=== PATIENT | female | born 1960 | race African-American/Black ===

== ENCOUNTER 2023-10-24 12:55 | Emergency (ER) | payer MEDICARE, OTHER, SELFPAY ==
[2023-10-24 13:04] VITALS: BP 126/66
--- NOTE | 2023-10-24 13:20 | ED.GENMED ---
History of Present Illness
General
Chief Complaint: Crisis Evaluation
Time Seen by Provider: 10/24/23 13:07
Travel History
Have you had any contact with someone who has COVID-19?: No
Do you have any symptoms of coronavirus? Fever > 100 degrees, chills, cough, shortness of breath, sore throat, loss of taste or smell, muscle aches, or headache?: No
History of Present Illness
History of Present Illness:
63-year-old female with history of hypertension, hyperlipidemia, mhu-avsgewb-[id number] diabetes, and morbid obesity presents to the emergency department for evaluation ideation. She has apparently been making threatening statements to 'kill her
roommates with knives'. 201 was initiated by her nursing facility staff. Patient is unable to be a direct threat to other residents or staff due to her immobility, she requires [employer] lift and occasionally will sit in a wheelchair for short periods
of time. She is unable to ambulate independently. Nevertheless she is requesting inpatient psychiatric placement due to these desires. Denies any suicidal ideation, visual or auditory hallucinations. Denies any medical complaints
Past History
Past History
ED Past Medical History: HTN, Hypercholesterolemia, NIDDM, Psychiatric (Schizoaffective disorder, Anxiety/Depression) and Other (Iron def anemia, GI bleeding.)
ED Past Surgical History: Cholecystectomy
Social History
Tobacco: Non-smoker
Alcohol: None
Personal: Single
Living: [facility]
Review of Systems
Review of Systems
Allergies reviewed?: Yes
All Other Systems: ROS reviewed and negative except as documented in HPI and ROS
Phy Exam
Physical Exam
Physical Exam:
GEN: Well appearing, NAD, WDWN
HEENT: Oral mucosa moist, no scleral icterus
Cardiac: Regular rate
Lung: No respiratory distress, no tachypnea
MSK: No gross deformity or injuries
Skin: Good color, no pallor or jaundice, no rashes
Neuro: AO x3, moves all extremities freely
Psych: Calm, cooperative
Course
Orders/Labs/Results
Orders:
Orders
10/24/23 13:17
Urine Drug Abuse Screen Urgent
Date Specimen was Collected: 10/24/23
Time Specimen was Collected: 13:23
10/24/23 13:20
Electrocardiogram (*1) Urgent
Reason for Study: QTc Monitoring
EKG- Treatment ONCE
10/24/23 13:22
Crisis Consult Urgent
Reason for Consult: homicidal ideation
10/24/23 14:46
Complete Blood Count/With Diff Urgent
Comprehensive Metabolic Panel Urgent
Abnormal Lab Results
10/24/23
14:46
RBC 4.14 L 10^6/uL
(4.20-5.40)
Hgb 10.8 L g/dL
(12.0-16.0)
Hct 34.1 L %
(37.0-47.0)
MCH 26.1 L pg
(27.0-31.0)
MCHC 31.7 L g/dL
(33.0-37.0)
RDW 16.1 H %
(11.5-14.5)
Glucose 106 H mg/dl
(70-99)
10/24/23 14:46
10/24/23 14:46
Vital Signs
Initial and Last Documented VS:
Initial Vital Signs
Temp Pulse Resp BP Pulse Ox
98.8 F 73 18 126/66 98
10/24/23 13:04 10/24/23 13:04 10/24/23 13:04 10/24/23 13:04 10/24/23 13:04
Last Documented Vital Signs
Temp Pulse Resp BP Pulse Ox
98.8 F 73 18 126/66 98
10/24/23 13:04 10/24/23 13:04 10/24/23 13:04 10/24/23 13:04 10/24/23 13:04
MDM/Problems Addressed
MDM/Problems Addressed:
Patient was evaluated by crisis, she readily admits that she does not have true homicidal or suicidal intentions but does not want to live at [facility] any longer. She feels that her best way to escape [facility] is to request psychiatric
admission. Ultimately she is not a direct threat to harm herself or others particular given that she is nonambulatory at baseline and requires [employer] lift for transfers. Her medical needs would be too great for inpatient psychiatric facilities to
manage, given that she is at a long term facility outpatient psychiatric follow-up is most appropriate for her. Be discharged back to [facility]
*Critical Care Note
Total Time (30-74mins, 75-104mins- exclusive of procedures): Not Applicable
ED Attending Note
-
Portions of this chart may have been created with voice recognition software.� Occasional wrong word or��sound alike� substitutions may have occurred due to the inherent limitations of voice recognition software.
Discharge Plan
Departure
Patient Disposition: Home (Routine Discharge)
Date of Disposition: 10/24/23
Time of Disposition: 16:41
Patient with high blood pressure during this ER visit?: No
Discharge Problem:
Threatening behavior
Prescriptions:
No Action
losartan 50 MG tablet
50 mg PO DAILY
magnesium hydroxide 30 ML suspension
30 ml PO DAILY PRN (Reason: constipation)
citalopram [Celexa] 20 MG tablet
20 mg PO DAILY
pantoprazole 40 MG tablet,delayed release (DR/EC)
40 mg PO DAILY Qty: 0 0RF
ferrous sulfate [Feosol] 325 MG tablet
325 mg PO BID
ipratropium-albuterol 0.5 mg-3 mg(2.5 mg base)/3 mL Solution For Nebulization
3 ml INHALATION R Q4 PRN (Reason: cough/SOB)
bisacodyl [Dulcolax (bisacodyl)] 10 mg Suppository
10 mg NM DAILY PRN (Reason: constipation if MOM ineffective)
Fleet Enema 19-7 gram/118 mL Enema
118 ml NM DAILY PRN (Reason: if dulcolax supp ineffective)
loperamide 2 mg Tablet
2 mg PO Q6H PRN (Reason: diarrhea)
risperidone [Risperdal] 3 mg Tablet
3 mg PO Q12H
acetaminophen 325 MG tablet
650 mg PO Q6H PRN (Reason: mild pain/temp> 100F)
cyanocobalamin (vitamin B-12) [Vitamin B-12] 500 mcg Tablet
500 mcg PO DAILY
Referrals:
Donn Bowman DO [Family Provider] -
Interventions
Interventions:
*Risk Screen - Suicide Last Done: 10/24/23 13:04
*General Assessment Last Done: 10/24/23 13:04
*Neglect/Abuse Screening Last Done: 10/24/23 13:04
ED- Fall Risk Assessment Last Done: 10/24/23 13:04
*ED COVID-19 Vaccine History Last Done: 10/24/23 13:04
ED-Psychological Assessment Last Done: 10/24/23 13:04
Discharge Date and Time
Print Language: KHMER
[2023-10-24 14:55] LABS: % Basophils 0.6 % (0-2); % Eosinophils 3.5 % (0-6); % Immature Granulocytes 0.3 % (0-0.5); % Lymphocytes 28.2 % (20.5-51.1); % Monocytes 5.7 % (1.7-9.3); % Neutrophils 61.7 % (42.2-75.2); Absolute Eosinophils 0.2 10^3/uL (0-0.7); Absolute Lymphocytes 1.9 10^3/uL (1.2-3.4); Absolute Monocytes 0.4 10^3/uL (0.1-0.6); Absolute Neutrophils 4.1 10^3/uL (1.4-6.5); Hematocrit 34.1 % (37.0-47.0); Hemoglobin 10.8 g/dL (12.0-16.0); Mean Corp Hgb Conc. 31.7 g/dL (33.0-37.0); Mean Corpuscular Hgb 26.1 pg (27.0-31.0); Mean Corpuscular Volume 82.4 fL (81.0-99.0); Nucleated Red Blood Cells % 0 %; Platelet Count 300 10^3/uL (130-400); Red Blood Cell Count 4.14 10^6/uL (4.20-5.40); Red Cell Dist. Width 16.1 % (11.5-14.5); White Blood Cell Count 6.7 10^3/uL (4.8-10.8)
[2023-10-24 15:24] LABS: ALT (SGPT) 12 U/L (0-35); AST (SGOT) 15 U/L (14-36); Albumin 3.6 g/dl (3.5-5.0); Alkaline Phosphatase 93 U/L (38-126); Blood Urea Nitrogen 12 mg/dl (7-17); Calcium 9.1 mg/dl (8.4-10.2); Carbon Dioxide 28 mmol/L (22-30); Chloride 102 mmol/L (98-107); Glucose 106 mg/dl (70-99); Potassium 3.8 mmol/L (3.5-5.1); Sodium 135 mmol/L (135-145); Total Bilirubin 0.8 mg/dl (0.2-1.3); Total Protein 7.5 g/dl (6.3-8.2); eGFR > 60.00
[2023-10-24 21:13] VITALS: BP 145/81
== END 2023-10-24 21:28 | disposition home or self-care (01) ==
LOC: EMR 12:55
PROVIDERS: Physician Assistant; EMERGENCY PHYSICIAN Emergency Medicine; FAMILY PHYSICIAN Internal Medicine
DX: R45.6 Violent behavior (principal)
CPT/HCPCS: 99284; 80053; 85025; 93005

== ENCOUNTER 2024-11-21 12:07 | Inpatient (IN) | payer MEDICARE, OTHER, SELFPAY ==
[2024-11-19 22:43] VITALS: BMI 50.3
[2024-11-19 22:53] VITALS: BP 99/55
[2024-11-19 23:28] LABS: % Basophils 0.5 % (0-2); % Eosinophils 2.7 % (0-6); % Immature Granulocytes 1.3 % (0-0.5); % Lymphocytes 8.5 % (20.5-51.1); % Monocytes 4.8 % (1.7-9.3); % Neutrophils 82.2 % (42.2-75.2); Absolute Basophils 0.1 10^3/uL (0-0.2); Absolute Eosinophils 0.3 10^3/uL (0-0.7); Absolute Immature Granulocytes 0.2 10^3/uL (0-0.05); Absolute Monocytes 0.6 10^3/uL (0.1-0.6); Absolute Neutrophils 9.6 10^3/uL (1.4-6.5); Hematocrit 31.3 % (37.0-47.0); Hemoglobin 10.4 g/dL (12.0-16.0); Mean Corp Hgb Conc. 33.2 g/dL (33.0-37.0); Mean Corpuscular Hgb 26.8 pg (27.0-31.0); Mean Corpuscular Volume 80.7 fL (81.0-99.0); Nucleated Red Blood Cells % 0 %; Platelet Count 312 10^3/uL (130-400); Red Blood Cell Count 3.88 10^6/uL (4.20-5.40); Red Cell Dist. Width 19.1 % (11.5-14.5); White Blood Cell Count 11.7 10^3/uL (4.8-10.8)
[2024-11-19 23:43] LABS: ALT (SGPT) 72 U/L (0-35); AST (SGOT) 179 U/L (14-36); Albumin 2.7 g/dl (3.5-5.0); Blood Urea Nitrogen 17 mg/dl (7-17); Calcium 8.6 mg/dl (8.4-10.2); Carbon Dioxide 27 mmol/L (22-30); Chloride 94 mmol/L (98-107); Glucose 94 mg/dl (70-99); Lipase 41 U/L (23-300); Potassium 3.1 mmol/L (3.5-5.1); Sodium 130 mmol/L (135-145); Total Bilirubin 6.4 mg/dl (0.2-1.3); Total Protein 6.5 g/dl (6.3-8.2); eGFR > 60.00
[2024-11-19 23:54] LABS: Alkaline Phosphatase 1994 U/L (38-126)
--- NOTE | 2024-11-19 23:57 | ED.GENMED ---
History of Present Illness
General
Chief Complaint: Vaginal Bleeding
Source: patient
Exam Limitations: none
Time Seen by Provider: 11/19/24 23:55
Nursing documentation reviewed up to this point in time: agreed with
History of Present Illness
History of Present Illness:
This is a 64-year-old female with past medical history of hypertension, hyperlipidemia, diabetes schizophrenia, who presents to the emergency department today with concerns of nausea and vomiting for the past few weeks as well as vaginal bleeding
for the past days. Patient reports that [facility] and reports that she has had nausea and vomiting on and off. She did state that she had 2 episodes that she vomited up specks of blood. This did resolve. She denies any dark
tarry stools. She states that she also has diffuse abdominal pain constantly she is not able to identify any factors that make it worse. Today, staff was changing her noticed that she did have vaginal bleeding. Patient is never had before. She
has no pain in the vaginal area, she has no dysuria or urinary frequency. Patient denies any fevers or chills. Patient does have a past medical history of cholecystectomy. She denies any new medications. She also states that she has been feeling
fluttering in her chest that has also resolved.
Past History
Past History
ED Past Medical History: HTN, Hypercholesterolemia, NIDDM, Psychiatric (Schizoaffective disorder, Anxiety/Depression) and Other (Iron def anemia, GI bleeding.)
ED Past Surgical History: Cholecystectomy
Social History
Tobacco: Non-smoker
Alcohol: None
Personal: Single
Living: prison
Review of Systems
Review of Systems
All Other Systems: ROS reviewed and negative except as documented in HPI and ROS
Phy Exam
Physical Exam
Physical Exam:
General: Patient is well appearing and in no acute distress; non-toxic
Skin: Jaundice otherwise skin is warm and dry, no rashes
Head: Normocephalic, atraumatic
Eyes: Scleral icterus noted. EOMs intact
Cardiac: Regular rate and rhythm, no murmurs
Peripheral Vascular: No lower extremity swelling or
Pulm: Normal respiratory effort, no wheezes, rales,
Abdomen: Epigastric abdominal tenderness noted, no rebound tenderness, no guarding
Genitourinary: Blood noted at vaginal introitus, no rectal bleeding, no lesions of the external genitalia
Neuro: CN II-XII intact, no focal neurologic deficits.
Psychiatric: Appropriate mood and affect.
Course
Orders/Labs/Results
Orders:
Orders
11/19/24 22:52
EKG [Electrocardiogram (*1)] Urgent
Reason for Study: Abdominal Pain
EKG- Treatment ONCE
11/19/24 23:17
Acetaminophen Urgent
Complete Blood Count/With Diff Urgent
Comprehensive Metabolic Panel Urgent
Direct Bilirubin Urgent
Comment: ADD ON
Lipase Urgent
Salicylate Urgent
Comment: ADD ON
11/20/24 00:21
CT Abd/pelvis W Iv Cont Urgent
Comment:
Reason For Exam: diffuse abdominal pain
11/20/24 00:22
Lactated Ringers [Lr] 1,000 ml IV BOLUS
11/20/24 00:23
US Pelvis Only (non-obstetric) Urgent
Comment:
Reason For Exam: vaginal bleeding
11/20/24 00:24
Pantoprazole [Protonix IV] 80 mg IV NOW STA
11/20/24 02:24
Potassium Chloride 10% Elixir [KCl Elixir] 40 meq PO NOW STA
11/20/24 03:07
Add On- LAB Urgent
Tests Added?: direct bilirubin
11/20/24 03:08
Add On- LAB Urgent
Tests Added?: tylenol, salicylates
11/20/24 03:40
Prothrombin Time Urgent
11/20/24 03:56
Add On- LAB Stat
Tests Added?: ethanol level
Admit/Transfer Patient As Directed
Co-Sign Provider:
Level of Care: Observation services
Assign to:: Medical/Surgical
Physician / Group: hospitalist
Diagnosis: jaundice
Urinalysis Reflex To Culture Routine
PRN Pain Medication Management As Directed
May give lesser potent ordered pain med per pt: Yes
preference::
Protocol:: Medication orders for pain may be administered in a
manner that supports deferring to patient preference
when the pt is:
- Requesting an ordered lesser potent pain medication.
Least to most potent pain medications are defined
as: acetaminophen < NSAID < tramadol < opioids
(morphine, oxycodone, hydromorphone).
- Requesting a lesser dose of the same medication IF
ORDERED.
- Requesting a less intrusive route of administration
if both routes are prescribed by the provider (PO <
IV).
11/20/24 03:58
Code Status As Directed
Resuscitation Status: Full Code
Abnormal Lab Results
11/19/24 11/20/24
23:17 03:40
WBC 11.7 H 10^3/uL
(4.8-10.8)
RBC 3.88 L 10^6/uL
(4.20-5.40)
Hgb 10.4 L g/dL
(12.0-16.0)
Hct 31.3 L %
(37.0-47.0)
MCV 80.7 L fL
(81.0-99.0)
MCH 26.8 L pg
(27.0-31.0)
RDW 19.1 H %
(11.5-14.5)
Abs Immat Gran (auto) 0.2 H 10^3/uL
(0-0.05)
Absolute Neuts (auto) 9.6 H 10^3/uL
(1.4-6.5)
Absolute Lymphs (auto) 1.0 L 10^3/uL
(1.2-3.4)
Immature Gran % 1.3 H %
(0-0.5)
Neutrophils % 82.2 H %
(42.2-75.2)
Lymphocytes % 8.5 L %
(20.5-51.1)
PT 16.8 H Sec
(11.4-14.6)
Sodium 130 L mmol/L
(135-145)
Potassium 3.1 L mmol/L
(3.5-5.1)
Chloride 94 L mmol/L
(98-107)
Total Bilirubin 6.4 H mg/dl
(0.2-1.3)
Direct Bilirubin 4.8 H mg/dl
(0.0-0.4)
AST 179 H U/L
(14-36)
ALT 72 H U/L
(0-35)
Alkaline Phosphatase 1994 H U/L
(38-126)
Albumin 2.7 L g/dl
(3.5-5.0)
Salicylates < 1.0 L mg/dl
(2.0-20.0)
Acetaminophen < 10 L ug/ml
(10-30)
11/19/24 23:17
11/19/24 23:17
Vital Signs
Initial and Last Documented VS:
Initial Vital Signs
Temp Pulse Resp BP Pulse Ox
98.2 F 92 22 99/55 96
11/19/24 22:53 11/19/24 22:53 11/19/24 22:53 11/19/24 22:53 11/19/24 22:53
Last Documented Vital Signs
Temp Pulse Resp BP Pulse Ox
98.2 F 92 22 99/55 96
11/19/24 22:53 11/19/24 22:53 11/19/24 22:53 11/19/24 22:53 11/19/24 22:53
MDM/Problems Addressed
Differential Diagnosis Includes:
Acute cholangitis, pancreatitis, gastritis, cirrhosis, uterine malignancy
MDM/Problems Addressed:
This is a 64-year-old female with past medical history of hypertension, hyperlipidemia, diabetes schizophrenia, who presents to the emergency department today with concerns of nausea and vomiting for the past few weeks as well as vaginal bleeding
today. Her primary issue today is diffuse abdominal pain and nausea and vomiting with associated jaundice, and her blood work reveals a total bilirubin is elevated at 6.[address] scan shows mild, bile duct dilation but no
evidence of obstructing stone. Her lipase is normal. Patient will need further workup of these new findings and MRCP.
Patient also has vaginal bleeding which started today with no associated dysuria or pelvic pain, her ultrasound is workable. Patient will require outpatient evaluation with PSYCHIATRIC ORDERLY.
Chronic conditions affecting care:
Hypertension, hyperlipidemia, schizophrenia
*Pulse Oximetry
Patient hypoxic: no
*Critical Care Note
Total Time (30-74mins, 75-104mins- exclusive of procedures): Not Applicable
Data Reviewed
Review of Other/Old Records Reveals: Records (Reviewed ER physician documentation from 10/24/2023 patient seen for threatening behavior, had blood work done which was unremarkable, reviewed ER physician documentation from 02/10 symptoms 23 patient seen
for chest pain, reviewed discharge summary from 08/09/2022 patient seen for acute bronchitis ) and Discharge Summary (Reviewed discharge summary from 03/25/2018 patient seen for hematemesis was diagnosed with esophageal ulcer)
Source: patient and records
ED Attending Note
-
Portions of this chart may have been created with voice recognition software.� Occasional wrong word or��sound alike� substitutions may have occurred due to the inherent limitations of voice recognition software.
Discharge Plan
Departure
Patient Disposition: Admit
Date of Disposition: 11/20/24
Time of Disposition: 03:20
Presentation/result/management discussed w/ accepting MD/DO: Hospitalist
Patient with high blood pressure during this ER visit?: Yes
Condition: Good
Discharge Problem:
Jaundice, Vaginal bleeding
Interventions
Interventions:
*General Assessment Last Done: 11/19/24 22:53
*Neglect/Abuse Screening Last Done: 11/19/24 22:53
*ED- Fall Risk Assessment Last Done: 11/19/24 22:53
*ED COVID-19 Vaccine History Last Done: 11/19/24 22:53
ED-Female Genitourinary Assessment Last Done: 11/19/24 23:03
[2024-11-20] VITALS (12 sets, daily range): BP systolic 91–127; BP diastolic 47–99; BMI 49.9
[2024-11-20] MEDS: LR 1000 IV (01:38)
[2024-11-20] MEDS: PROTONIX IV 80 MG IV (01:38)
[2024-11-20] MEDS: KCL ELIXIR 40 MEQ PO (02:52)
--- NOTE | 2024-11-20 03:28 | HPS.HSE ---
Family Physician
-
Family Physician: Donn Bowman, DO
Chief Complaint
-
Vaginal bleeding
History of Present Illness
This is a 63-year-old female with past medical history significant for schizophrenia, hypertension, diabetes, hyperlipidemia, morbid obesity, history of prior GI bleed who [facility] at [facility] presenting to the emergency department for 2 days of
vaginal bleeding.
Patient stated that she started having vaginal bleeding about 2 days ago. Nausea showed me that she had cysts about 3 cm area of sports on a pad. When evaluated in the ED she did have some blood around the lower pubic mons. She denies history of
vaginal bleeding. She reports that she has been having itching and burning when she urinates over the last 2 days. She otherwise endorses numerous other complaints. She states that she has had nausea vomiting and abdominal pain for over 6 weeks.
She reports abdominal pain is diffuse and radiates into her chest. She reported that she had a bloody emesis today. She says she has been having bloody emesis for several weeks as well. She also reports bloody diarrhea. She reports feeling dizzy
and lightheaded. She states that she has been able to tolerate p.o. she has a prior history of alcohol use, quit many years ago.
In the emergency department she was afebrile, temp was 98.2, blood pressure was 99/60 with a pulse of 92. Hemoglobin was 10.4 with white count from 1791 plate count. Coags are pending. Electrolytes are notable for sodium of 130 and a potassium of
3.1 but otherwise unremarkable. BUN and creatinine were normal. Labs notable for a total bilirubin of 6.4, AST of 179 ALT of 72 alk phos of over 1900. Lipase was negative.
She had a CT of the abdomen pelvis with no definitive CT findings to account for reported pain/symptoms. Interval cholecystectomy, mild CBD dilation likely reflecting post cholecystomy changes. No definite evidence of obstructing stone.
Stable appearance of the pelvis with exophytic fibroid versus prominent left ovary. No evidence of hydroureteronephrosis or obstructing stone.
Medical History
Past Medical History
Past Medical History: Reports Other
Additional Past Medical History:
Morbid Obesity
Schizophrenia
Iron Deficiency Anemia
Hypertension
Chronic Ambulatory Dysfunction
Impaired Cognition / Intellectual Disability
Past Surgical History: Reports Cholecystectomy
Social History
Tobacco: Non-smoker
Alcohol: Former
Drug: None
Living: [facility]
Family History
Family History: Not pertinent
Allergies / Home Medications
Allergies reflects when Allergies were last updated in [email or web address].
Home Medications with original date entered in [email or web address]
Allergy/Medication List:
Allergies
Allergy/AdvReac Type Severity Reaction Status Date / Time
chlorpromazine Allergy Unknown Verified 11/19/24 22:50
[From Thorazine]
haloperidol [From Haldol] Allergy Unknown Verified 11/19/24 22:50
tobramycin [From Tobrex] Allergy Unknown Verified 11/19/24 22:50
Home Medications
losartan 50 mg tablet 50 mg PO DAILY Blood pressure 07/27/17
magnesium hydroxide 400 mg/5 mL oral suspension 30 ml PO DAILY PRN constipation 07/27/17
citalopram 20 mg tablet (Celexa) 40 mg PO DAILY 03/23/18
pantoprazole 40 mg tablet,delayed release 40 mg PO DAILY ##0 03/25/18
ferrous sulfate 325 mg (65 mg iron) tablet (Feosol) 325 mg PO BID Supplement 05/03/18
bisacodyl 10 mg rectal suppository (Dulcolax (bisacodyl)) 10 mg NH DAILY PRN constipation if MOM ineffective 08/07/22
ipratropium 0.5 mg-albuterol 3 mg (2.5 mg base)/3 mL nebulization soln 3 ml inhalation R Q4 PRN cough/SOB 08/07/22
sodium phosphates 19 gram-7 gram/118 mL enema (Fleet Enema) 118 ml NH DAILY PRN if dulcolax supp ineffective 08/07/22
acetaminophen 325 mg tablet 650 mg PO Q6H PRN mild pain/temp> 100F 02/17/23
loperamide 2 mg tablet 2 mg PO Q6H PRN diarrhea 02/17/23
risperidone 3 mg tablet (Risperdal) 2 mg PO Q12H 02/17/23
melatonin 3 mg tablet 6 mg PO HS 11/20/24
semaglutide 1 mg/dose (4 mg/3 mL) subcutaneous pen injector (Ozempic) 2 mg SC .EVERYFRIDAY 11/20/24
Review of Systems
-
History Source: Patient
Constitutional: Reports No Symptoms
EENT: Reports No Symptoms
Respiratory: Reports No Symptoms
Cardiac: Reports No Symptoms
Abdomen/GI: Reports Abdominal Pain, Nausea, Vomiting and Diarrhea
: Reports Dysuria
Musculoskeletal: Reports No Symptoms
Skin: Reports No Symptoms
Neurological: Reports No Symptoms
Endocrine: Reports No Symptoms
Hematologic/Lymphatic: Reports No Symptoms
Psych: Reports No Symptoms
Physical Exam
Vital Signs
Vital Signs
Temp Pulse Resp BP Pulse Ox
98.2 F 92 22 99/55 96
11/19/24 22:53 11/19/24 22:53 11/19/24 22:53 11/19/24 22:53 11/19/24 22:53
Physical Exam
General: No Apparent Distress and Morbidly Obese
HEENT: NormoCephalic, Anicteric, Moist mucous membranes and Atraumatic
Respiratory: Clear
Cardiac: S1/S2 and Regular Rhythm
Breast: Deferred by me
GI: Tender
Rectal: Deferred by Provider
Genito-urinary: No costovertebral tender and Vaginal Bleeding
Musculoskeletal: No Clubbing, No Cyanosis and No Edema
Skin: Warm
Neuro: AO x 3 and Nonfocal/grossly intact
Hematologic/Lymphatic: No Lymphadenopathy
Psych: Calm
Laboratory Results
-
11/19/24 23:17
11/19/24 23:17
Laboratory Results
Total Bilirubin 6.4 mg/dl (0.2-1.3) H 11/19/24 23:17
AST 179 U/L (14-36) H 11/19/24 23:17
ALT 72 U/L (0-35) H 11/19/24 23:17
Alkaline Phosphatase 1994 U/L (38-126) H 11/19/24 23:17
Lipase 41 U/L (23-300) 11/19/24 23:17
Data Reviewed
-
CT Scan: Report Reviewed by me
Lab Data: Labs Reviewed by me
Old Records: Reviewed
Impression/Plan
-
IMPRESSION:
64-year-old transferred to the emergency department for vaginal bleeding ongoing for 2 days and found to have spots of blood on the pad. She reports several weeks of abdominal pain nausea vomiting and found to have markedly elevated bilirubin to
6.4 with elevated alk phos to over 1900. She has slight elevations in AST to 179 and ALT 72. Lipase was negative. CT of the abdomen was unrevealing for any acute intra-abdominal pathology specifically she has no gallbladder, no gallstones, no
biliary ductal dilation.
PLAN:
Abnormal liver enzymes/cholestasis - 6 weeks of N/V now with elevated bilis. (Completely normal 1 yr ago). No stones, masses or obvious obstruction. Denies etoh use. Denies tylenol use. No obvious hepatoxic drugs. No h/o IBD. No cirrhosis on
labs
- admit to med/surg
- clear liquid diet as tolerated
- check tylenol and chronic hep panel
- given elevated alkphos, likely cholestatic picture, check direct bili and ggtp
- possible MRCP in am (don't think she can be accomodated by regular mri)
- GI consultation
Vaginal bleeding - vaginal bleeding vs cystitis. Likely difficult to get clean u/a sample. Reports itching. Minimal bleeding currently. Fibroid on CT scan. No thinners, nsaids or antiplatelet. Low MCV, likely iron deficiency but Hgb is stable
compared to prior
- u/a
- coags given liver enzymes
- type and screen
- iron panel
- iron supplementation
- vegetable washing machine operator consult.
Hypokalemia - no acute ECG changes.
- replete by IV and oral
DVT PPX - heparin sq
Code status - Full Code
[2024-11-20 03:41] LABS: Acetaminophen < 10 ug/ml (10-30); Direct Bilirubin 4.8 mg/dl (0.0-0.4); Salicylate < 1.0 mg/dl (2.0-20.0)
[2024-11-20 04:08] LABS: INR 1.33; PT 16.8 Sec (11.4-14.6)
[2024-11-20 05:46] LABS: Alcohol None Detected
[2024-11-20] MEDS: NSS 1000 IV (06:12)
[2024-11-20 06:33] LABS: Hemoglobin 10.9 g/dL (12.0-16.0); Mean Corp Hgb Conc. 34.1 g/dL (33.0-37.0); Mean Corpuscular Volume 79.2 fL (81.0-99.0); Mean Platelet Volume 9.4 fL (7.4-10.4); Platelet Count 352 10^3/uL (130-400); Red Blood Cell Count 4.04 10^6/uL (4.20-5.40); Red Cell Dist. Width 19.2 % (11.5-14.5); White Blood Cell Count 11.4 10^3/uL (4.8-10.8)
[2024-11-20] MEDS: RISPERDAL 2 MG PO ×2 (07:23→21:56)
[2024-11-20] MEDS: FEOSOL 325 MG PO ×2 (07:23→21:56)
[2024-11-20] MEDS: PROTONIX 40 MG PO (07:23)
[2024-11-20 07:27] LABS: Hepatitis B Surface Antigen Negative (Negative)
[2024-11-20] MEDS: COZAAR PO (07:27)
[2024-11-20] MEDS: HEPARIN 5000 UNITS SC ×3 (07:27→23:34)
[2024-11-20 07:30] LABS: Hepatitis B Core Ab, IgM Negative (Negative)
[2024-11-20] MEDS: CELEXA 40 MG PO (07:31)
--- NOTE | 2024-11-20 07:32 | CON.GI ---
Addendum entered and electronically signed by Marcelo Piña MD 11/20/24 19:19:
I saw and examined the patient.
The SMALL MACHINE BINDERY OPERATOR or PA's note was reviewed and I agree with the note.
Comment:
Pt is a 64 y/o woman with intellectual disability, gerd admitted with vaginal bleeding and found to have markedly abnormal lfts. 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 She has had an egd but not colonoscopy. Does have nausea
and intermittent vomiting
abd: soft,nontender,
mildly icteric
impression:
liver lesions
nausea/vomiting
abnl lfts
gerd
plan:
PPI
follow lfts, add GGT
check tumor markers
stool studies if diarrhea
po as tolerated
will await rn obgyn w/u
Original Note:
Consultation
-
Date/Time Consultation Requested: 11/20/24 0530
Date/Time Consultation Performed: 11/20/24 1010
Requesting Provider: Dawit Thomas MD
Performing Provider: DON Ansari, Marcelo Piña MD
Reason for Consultation: increased LFT's
Medical History
Chief Complaint / HPI
Chief Complaint: vomiting, vaginal bleeding
History of Present Illness:
Pt is a 64yo presents with hx HTN, hyperlipidemia, schizophrenia, NIDDM (on Ozempic) obesity, GI bleed- CGE with EGD 2018 with grade D esophagitis, ENRIQUE, chronic ambulatory dysfunction, impaired cognition/ intellectual disability , mariely presents
with onset of vaginal bleeding. In ER she also had complaints of nausea, vomiting, abdominal pain, recent bloody emesis, blood diarrhea and urinary bleeding. On admission pt also noted with WBC 11.7, hbg 10.4, Na 130, K 3.1, cl 94, ferritin 615,
bili 6.4, D bili 4.8, AST 179, ALT 72, alk phos 1993 (with normal LFT's 10/2023) albumin 2.7, and lipase 41. INR 1.33. ER rectal with blood in vaginal area no rectal bleeding. She has completed several imaging studies with Us pelvis with
endometrial thickening concern for hyperplasia or carcinoma. She also completed CT and MRI with liver lesions - MRI suggest Hamartomas vs less likely mets, microabscess or caroli disease. recommended repeat in 3-6 months. There was also intra and
extrahepatic duct dilatation likely post mariely, no stricture or filling defect. Also noted on Ct with mild upper retroperitoneal adenopathy reactive vs mets.+ family hx mother with colon CA.
In review with patient she states she has not been feeling well for a few weeks. She admits to multiple issues as above. She also admits to GERD on chronic PPI, and constipation with straining for BM's at times and lower abdominal pain.
She is unsure about wt loss. She admits to possible colonoscopy years ago at [facility]. 02/2018- Melissa-- LA Grade D reflux esophagitis.- Chronic gastritis. Biopsied - Normal third portion of the duodenum. bx-- inactive gastritis, H pylori neg
Past Medical History
Past Medical History: HTN, Hypercholesterolemia, NIDDM, Psychiatric (schizophrenia) and Other (obesity, GI bleed, ENRIQUE, chronic ambulatory dysfunction, impaired cognition/ intellectual disability )
Past Surgical History: Cholecystectomy
Social History
Tobacco: Non-Smoker
Alcohol: None
Drug: None
Living: Prison
Employment: Disabled
Family History
Family History: Other (mother with colon CA, father with ID)
Allergies / Home Medications
Allergy/AdvReac Type Severity Reaction Status Date / Time
chlorpromazine Allergy Unknown Verified 11/19/24 22:50
[From Thorazine]
haloperidol [From Haldol] Allergy Unknown Verified 11/19/24 22:50
tobramycin [From Tobrex] Allergy Unknown Verified 11/19/24 22:50
�Medication �Instructions �Recorded
losartan 50 mg tablet 50 mg PO DAILY Blood pressure 07/27/17
magnesium hydroxide 400 mg/5 mL 30 ml PO DAILY PRN constipation 07/27/17
oral suspension
citalopram 20 mg tablet (Celexa) 40 mg PO DAILY 03/23/18
pantoprazole 40 mg tablet,delayed 40 mg PO DAILY ##0 03/25/18
release
ferrous sulfate 325 mg (65 mg 325 mg PO BID Supplement 05/03/18
iron) tablet (Feosol)
bisacodyl 10 mg rectal suppository 10 mg [place] DAILY PRN constipation if 08/07/22
(Dulcolax (bisacodyl)) MOM ineffective
ipratropium 0.5 mg-albuterol 3 mg 3 ml inhalation R Q4 PRN cough/SOB 08/07/22
(2.5 mg base)/3 mL nebulization
soln
sodium phosphates 19 gram-7 118 ml W[place] DAILY PRN if dulcolax 08/07/22
gram/118 mL enema (Fleet Enema) supp ineffective
acetaminophen 325 mg tablet 650 mg PO Q6H PRN mild pain/temp> 02/17/23
100F
loperamide 2 mg tablet 2 mg PO Q6H PRN diarrhea 02/17/23
risperidone 3 mg tablet (Risperdal) 2 mg PO Q12H 02/17/23
melatonin 3 mg tablet 6 mg PO HS 11/20/24
semaglutide 1 mg/dose (4 mg/3 mL) 2 mg SC .EVERYFRIDAY 11/20/24
subcutaneous pen injector (Ozempic)
Review of Systems
-
History Source: Patient
Constitutional: Reports Chills
EENT: Reports No Symptoms
Respiratory: Reports No Symptoms
Cardiac: Reports No Symptoms
Abdomen/GI: Reports Abdominal Pain (lower abdomen ), Nausea, Vomiting (with hematemesis ), Constipated and Bloody Stools
: Reports Bleeding and Other (vaginal bleeding )
Musculoskeletal: Reports No Symptoms
Skin: Reports No Symptoms
Neurological: Reports Weakness
Endocrine: Reports No Symptoms
Hematologic/Lymphatic: Reports Bleeding
Vital Signs
Temp Pulse Resp BP Pulse Ox
97.7 F 98 18 92/62 96
11/20/24 07:07 11/20/24 07:27 11/20/24 07:07 11/20/24 07:27 11/20/24 07:07
Physical Exam
Exam
General: Well Developed, Well Nourished and No Apparent Distress
HEENT: Normocephalic and Anicteric
Results
WBC 11.4 10^3/uL (4.8-10.8) H 11/20/24 06:09
Hgb 10.9 g/dL (12.0-16.0) L 11/20/24 06:09
Hct 32.0 % (37.0-47.0) L 11/20/24 06:09
MCV 79.2 fL (81.0-99.0) L 11/20/24 06:09
Plt Count 352 10^3/uL (130-400) 11/20/24 06:09
Absolute Neuts (auto) 9.6 10^3/uL (1.4-6.5) H 11/19/24 23:17
PT 16.8 Sec (11.4-14.6) H 11/20/24 03:40
INR 1.33 11/20/24 03:40
Sodium Cancelled 11/20/24 06:09
Potassium Cancelled 11/20/24 06:09
Chloride Cancelled 11/20/24 06:09
Carbon Dioxide Cancelled 11/20/24 06:09
BUN Cancelled 11/20/24 06:09
Creatinine Cancelled 11/20/24 06:09
Calcium Cancelled 11/20/24 06:09
Total Bilirubin Cancelled 11/20/24 06:09
AST Cancelled 11/20/24 06:09
ALT Cancelled 11/20/24 06:09
Alkaline Phosphatase Cancelled 11/20/24 06:09
Lipase 41 U/L (23-300) 11/19/24 23:17
Hep B Core IgM Ab Negative (Negative) 11/20/24 06:09
Diagnostic Image Results:
11/20/24 CT Abd/pelvis W Iv Cont
Heterogeneous liver parenchyma with the suggestion of numerous small intraparenchymal liver lesions. Hepatic metastases versus other underlying infiltrative process. This appears to be new compared to the CT abdomen/pelvis from 01/12/2019. The
patient is currently scheduled for an MRI of the abdomen, at which time further evaluation of the liver is recommended.
Bile duct dilatation may be secondary to the previous cholecystectomy. No appreciable choledocholithiasis by CT.
Mild upper retroperitoneal lymphadenopathy, reactive versus metastatic.
Heterogeneous liver parenchyma with the suggestion of numerous small intraparenchymal liver lesions. Hepatic metastases versus other underlying infiltrative process. This appears to be new compared to the CT abdomen/pelvis from 01/12/2019. The
patient is currently scheduled for an MRI of the abdomen, at which time further evaluation of the liver is recommended.
Bile duct dilatation may be secondary to the previous cholecystectomy. No appreciable choledocholithiasis by CT.
Mild upper retroperitoneal lymphadenopathy, reactive versus metastatic.
11/20/24 US Pelvis Only (non-obstetric)
The endometrium measures 9 mm in thickness, which is considered abnormally thickened for a symptomatic postmenopausal patient (greater than 5 mm). Findings could be secondary to endometrial hyperplasia or endometrial carcinoma. Sonographic
evaluation is limited by patient body habitus.
MRI with and without contrast
Innumerable scattered small nonenhancing hepatic lesions as described. 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 Less likely differentials include atypical liver metastases, microabscesses, or Caroli
disease. As a conservative measure, recommend follow-up MRI abdomen without and with Eovist contrast in 3-6 months.
Diffuse prominence of the intra- and extra-hepatic biliary ducts, likely within normal limits given patient age and postcholecystectomy state. No discrete biliary strictures or filling defects.
Prior GI Procedures:
EGD: 02/2018- Torres-- LA Grade D reflux esophagitis.- Chronic gastritis. Biopsied - Normal third portion of the duodenum. bx-- inactive gastritis, H pylori neg
Colonoscopy:
Assessment / Plan
-
Pt is a 64yo presents with hx HTN, hyperlipidemia, schizophrenia, NIDDM (on Ozempic) obesity, GI bleed- CGE with EGD 2018 with grade D esophagitis, ENRIQUE, chronic ambulatory dysfunction, impaired cognition/ intellectual disability , mariely presents
with onset of vaginal bleeding. In ER she also had complaints of nausea, vomiting, abdominal pain, recent bloody emesis, blood diarrhea and urinary bleeding. On admission pt also noted with WBC 11.7, hbg 10.4, Na 130, K 3.1, cl 94, ferritin 615,
bili 6.4, D bili 4.8, AST 179, ALT 72, alk phos 1994 (with normal LFT's 10/2023) albumin 2.7, and lipase 41. INR 1.33. ER rectal with blood in vaginal area no rectal bleeding. She has completed several imaging studies with Us pelvis with
endometrial thickening concern for hyperplasia or carcinoma. She also completed CT and MRI with liver lesions - MRI suggest Hamartomas vs less likely mets, microabscess or caroli disease. recommended repeat in 3-6 months. There was also intra and
extrahepatic duct dilatation likely post mariely, no stricture or filling defect. Also noted on Ct with mild upper retroperitoneal adenopathy reactive vs mets.+ family hx mother with colon CA.
-increased LFT's
-nausea/vomiting/abdominal pain
-CT and MRI with liver lesion Hamartoma vs other
-intra and extrahepatic biliary dilation post mariely vs other
-bloody emesis
-blood diarrhea
-constipation
-vaginal bleeding- US with endometrial thickening
-mild upper abdominal retroperioneal adenopathy
-mild anemia
-leukocytosis
-hyponatremia
-hypokalemia
other medical problems:
-HTN
-hyperlipidemia
-schizophrenia
-NIDDM
-obesity
PLAN:
Etiology of increased LFT's unclear will review imaging with Dr. Piña with liver lesions and possible occult process
she also has nausea, vomiting, hematemesis -- nursing to follow for recurrent issues
she is also on Ozempic prior to admission unsure when started
with vaginal bleeding and endometrial thickening agree with POLITICAL CONSULTANT evaluation
add GGT with marked elevated alk phos
reviewed with Dr. Womack will add AFP, Ca 19-9, CEA, and CA 19-9, and CA 125
trend labs
t/c EGD with vomiting blood if rectal bleeding consider colonoscopy
I also spoke [facility] social work-- pt contact has and she is primary decision maker
trend hbg
-
-
Thank you for consultation and allowing me to participate in the patient's care. Please call the economic consultant GI physician during the after hours with any questions or concerns.
[2024-11-20 07:44] LABS: Hepatitis A Antibody, Total Positive (Negative); Hepatitis B Core Ab, Total Negative (Negative); Hepatitis B Surface Antibody Negative; Hepatitis C Antibody Negative (Negative)
[2024-11-20 08:05] LABS: Folate 2.7 ng/ml (2.76-20); Vitamin B12 > 1000 pg/ml (239-931)
[2024-11-20 08:16] LABS: Hepatitis A IgM Antibody Negative (Negative)
--- NOTE | 2024-11-20 09:43 | CM ---
CM spoke with nursing at [facility]
Pt is a LTC resident
She is AxO and makes her own decision
Has no emergency contact or family
Pt is bedbound/3 person max assist via dilip lift for transfers
Pt utilizes a bariatric WC which she is able to self propel
Pt is able to complete some personal care tasks but often refuses meds and to participate in tasks
Pt is under care of psychologist at [facility] to manage diagnoses
PCP- Donn Bowman
Rx- Concept
HAWKINS verbally reviewed with pt bedside
Copy provided to pt and placed in ED chart
Discharge Disposition- return to [facility] via bariatric ambulance
[2024-11-20 11:42] LABS: ALT (SGPT) 78 U/L (0-35); AST (SGOT) 177 U/L (14-36); Albumin 2.8 g/dl (3.5-5.0); Blood Urea Nitrogen 17 mg/dl (7-17); Calcium 8.7 mg/dl (8.4-10.2); Carbon Dioxide 26 mmol/L (22-30); Chloride 95 mmol/L (98-107); Direct Bilirubin 4.8 mg/dl (0.0-0.4); Estimated Creatinine Clearance 108 ml/min; Glucose 139 mg/dl (70-99); Iron 91 ug/dl (37-170); Magnesium 2.2 mg/dl (1.6-2.3); Potassium 3.6 mmol/L (3.5-5.1); Sodium 133 mmol/L (135-145); Total Bilirubin 6.1 mg/dl (0.2-1.3); Total Protein 6.8 g/dl (6.3-8.2); eGFR > 60.00
[2024-11-20 11:51] LABS: Percent Saturation 44 % (20-50); Total Iron Binding Capacity 205 ug/dl (265-497)
[2024-11-20 11:55] LABS: Alkaline Phosphatase 2289 U/L (38-126)
--- NOTE | 2024-11-20 13:13 | TRANSFER ---
verbal report called to Apple Galindo. report also tubed.
[2024-11-20] MEDS: TORADOL 10 MG IV (13:26)
[2024-11-20 14:24] LABS: Urine Albumin 2+ (Neg - Trace); Urine Bilirubin 3+ (Negative); Urine Character Slightly Cloudy (Clear); Urine Glucose Negative (Negative); Urine Ketone 2+ (Negative); Urine Leukocyte 1+ (Negative); Urine Nitrite Positive (Negative); Urine Occult Blood 2+ (Negative); Urine Urobilinogen 4+ (Neg - 1+)
[2024-11-20 14:29] LABS: Urine Color Orange
--- NOTE | 2024-11-20 15:08 | PTCARENOTE ---
Patient admitted to 2N from ED; Patient AAOx3, VSS, flat affect, nonambulatory/dilip lift at baseline, on air bed. IVF infusing through L hand IV. Patient c/o 10/10 abd pain, no nausea at this time but poor appetite, on clear liquid diet. Patient
medicated with PRN IV toradol - see MAR. Patient c/o vaginal bleeding for last 2-3 days, outstanding UA noted from overnight, patient straight cathed x1 for karime color urine, sample sent to lab. Wipes blood-tinged when providing care to rudy area,
MD aware, LOADING CHECKER consult in place. Patient oriented to room and call felipe.
[2024-11-20 15:12] LABS: Urine Mucus Many; Urine Squamous Cell 0-2 /LPF (Few)
[2024-11-20 15:13] LABS: Urine Amorphous Seen; Urine Red Blood Cell 0-2 /HPF (0-2)
[2024-11-20 15:14] LABS: Urine Bacteria Many (Negative)
--- NOTE | 2024-11-20 15:19 | CS.OBGYN ---
Documented by User: Mey Shankar MD, Resident 11/20/24 16:11
Consult Summary - PERIODICALS CLERK
-
HPI-
64-year-old G0 female, bedbound from retirement, with multiple comorbidities significant for schizophrenia, hypertension, diabetes, hyperlipidemia, morbid obesity (BMI 50.3) presents to the hospital for new onset vaginal bleeding since 11/17/2024.
Bleeding is mild, changes pad with voiding. Complains of 'vaginal' pain since bleeding started. Imaging performed earlier today shows normal sized uterus with endometrial echo of 9 mm, echogenic, and 3.2 cm fibroid. Ovaries not visualized on U/S or
CT. Ct scan significant for retroperitoneal lymphadenopathy. Tumor markers sent.
Pt denies any prior SOIL SCIENCE TEACHER problems, menopause in her late 40's, reports having had SOIL SCIENCE TEACHER exam many years ago. No family history of SOIL SCIENCE TEACHER/breast cancer. Reports never having been sexually active.
Also, pt with abdominal pain during same time frame, GI work up in progress. She denies dysuria, frequency, hesitancy, urgency or hematuria, constipation or diarrhea. Her abdominal pain is associated with nausea and bloating but no emesis.
No similar episodes in the past.
PMHx -
Morbid Obesity
Schizophrenia
Iron Deficiency Anemia
Hypertension
Chronic Ambulatory Dysfunction
Impaired Cognition / Intellectual Disability
PSHx -
Cholecystectomy
Allergies-
Chlorpromazine, haloperidol, tobramycin
Home medications-
losartan 50 mg tablet 50 mg PO DAILY Blood pressure 07/27/17
magnesium hydroxide 400 mg/5 mL oral suspension 30 ml PO DAILY PRN constipation 07/27/17
citalopram 20 mg tablet (Celexa) 40 mg PO DAILY 03/23/18
pantoprazole 40 mg tablet,delayed release 40 mg PO DAILY ##0 03/25/18
ferrous sulfate 325 mg (65 mg iron) tablet (Feosol) 325 mg PO BID Supplement 05/03/18
bisacodyl 10 mg rectal suppository (Dulcolax (bisacodyl)) 10 mg [place] DAILY PRN constipation if MOM ineffective 08/07/22
ipratropium 0.5 mg-albuterol 3 mg (2.5 mg base)/3 mL nebulization soln 3 ml inhalation R Q4 PRN cough/SOB 08/07/22
sodium phosphates 19 gram-7 gram/118 mL enema (Fleet Enema) 118 ml [place] DAILY PRN if dulcolax supp ineffective 08/07/22
acetaminophen 325 mg tablet 650 mg PO Q6H PRN mild pain/temp> 100F 02/17/23
loperamide 2 mg tablet 2 mg PO Q6H PRN diarrhea 02/17/23
risperidone 3 mg tablet (Risperdal) 2 mg PO Q12H 02/17/23
melatonin 3 mg tablet 6 mg PO HS 11/20/24
semaglutide 1 mg/dose (4 mg/3 mL) subcutaneous pen injector (Ozempic) 2 mg SC .EVERYFRIDAY 11/20/24
FMHx -
Mother and uncle of colon cancer.
Social history-
Non-smoker, quit alcohol, no use of recreational drugs, living in retirement x 5 years
Vital signs-
BP -99/63, afebrile, RR 20, 96% on room air, HR - 98.
Physical exam-
Performed by my supervising provider, Dr. Aly.
Labs-
Leukocytosis-WBC 11.4, microcytic anemia (H&H-10.9, 32, MCV 79.2) left shift present
Mild hyponatremia (133), elevated TB-6.1, DB-4.8, GGT-469, AST-177, ALT-78, ALP-1993 upon admission trending up, 2289. Low folate levels.
Urine analysis-positive for nitrites and leuk esterase with abnormal WBC count and many bacteria.
Reflex to urine culture pending.
Assessment and nvbr-49-azqy-old female with multiple comorbidities on Ozempic, no anticoagulation presents for abnormal uterine bleeding.
Vaginal exam performed-
Plan for D&C.

Documented by User: Wesly Aly MD 11/20/24 16:22
Consult Summary - PERIODICALS CLERK
-
HPI-
64-year-old G0 female, bedbound from retirement, with multiple comorbidities significant for schizophrenia, hypertension, diabetes, hyperlipidemia, morbid obesity (BMI 50.3) presents to the hospital for new onset vaginal bleeding since 11/17/2024.
Bleeding is mild, changes pad with voiding. Complains of 'vaginal' pain since bleeding started. Imaging performed earlier today shows normal sized uterus with endometrial echo of 9 mm, echogenic, and 3.2 cm fibroid. Ovaries not visualized on U/S or
CT. Ct scan significant for retroperitoneal lymphadenopathy. Tumor markers sent.
Pt denies any prior SOIL SCIENCE TEACHER problems, menopause in her late 40's, reports having had SOIL SCIENCE TEACHER exam many years ago. No family history of SOIL SCIENCE TEACHER/breast cancer. Reports never having been sexually active.
Also, pt with abdominal pain during same time frame, GI work up in progress. She denies dysuria, frequency, hesitancy, urgency or hematuria, constipation or diarrhea. Her abdominal pain is associated with nausea and bloating but no emesis.
No similar episodes in the past.
PMHx -
Morbid Obesity
Schizophrenia
Iron Deficiency Anemia
Hypertension
Chronic Ambulatory Dysfunction
Impaired Cognition / Intellectual Disability
PSHx -
Cholecystectomy
Allergies-
Chlorpromazine, haloperidol, tobramycin
Home medications-
losartan 50 mg tablet 50 mg PO DAILY Blood pressure 07/27/17
magnesium hydroxide 400 mg/5 mL oral suspension 30 ml PO DAILY PRN constipation 07/27/17
citalopram 20 mg tablet (Celexa) 40 mg PO DAILY 03/23/18
pantoprazole 40 mg tablet,delayed release 40 mg PO DAILY ##0 03/25/18
ferrous sulfate 325 mg (65 mg iron) tablet (Feosol) 325 mg PO BID Supplement 05/03/18
bisacodyl 10 mg rectal suppository (Dulcolax (bisacodyl)) 10 mg [place] DAILY PRN constipation if MOM ineffective 08/07/22
ipratropium 0.5 mg-albuterol 3 mg (2.5 mg base)/3 mL nebulization soln 3 ml inhalation R Q4 PRN cough/SOB 08/07/22
sodium phosphates 19 gram-7 gram/118 mL enema (Fleet Enema) 118 ml [place] DAILY PRN if dulcolax supp ineffective 08/07/22
acetaminophen 325 mg tablet 650 mg PO Q6H PRN mild pain/temp> 100F 02/17/23
loperamide 2 mg tablet 2 mg PO Q6H PRN diarrhea 02/17/23
risperidone 3 mg tablet (Risperdal) 2 mg PO Q12H 02/17/23
melatonin 3 mg tablet 6 mg PO HS 11/20/24
semaglutide 1 mg/dose (4 mg/3 mL) subcutaneous pen injector (Ozempic) 2 mg SC .EVERY Tuesday11/20/24
FMHx -
Mother and uncle of colon cancer.
Social history-
Non-smoker, quit alcohol, no use of recreational drugs, living in retirement x 5 years
Vital signs-
BP -99/63, afebrile, RR 20, 96% on room air, HR - 98.
Physical exam-
Performed by my supervising provider, Dr. Aly.
Breast-no masses, nodes or discharge
Pelvic-significantly limited by body habitus and having to be done at bedside
Vulva and vagina-small amount of blood noted
Cervix- limited visualization, does not appear abnormal, PAP specimen attempted
Uterus/adnexae-nonpalpable
Recto/vaginal-no masses
Labs-
Leukocytosis-WBC 11.4, microcytic anemia (H&H-10.9, 32, MCV 79.2) left shift present
Mild hyponatremia (133), elevated TB-6.1, DB-4.8, GGT-469, AST-177, ALT-78, ALP-1993 upon admission trending up, 2289. Low folate levels.
Urine analysis-positive for nitrites and leuk esterase with abnormal WBC count and many bacteria.
Reflex to urine culture pending.
Assessment:64-year-old female G0 with postmenopausal bleeding. Patient with multiple comorbidities. SOIL SCIENCE TEACHER exam limited by nulliparous status and body habitus.
Recommendations: Patient consented for hysteroscopy, dilation and curettage for tomorrow or next day, pending medical clearance. Consent signed after discussion of rational for surgery, concerns about cancer and non-cancer reasons for bleeding,
risks reviewed. Will need Cytotec pre-op.
MRI of pelvis ordered for tonight, discussed with radiology. PAP done.
[2024-11-20 15:22] LABS: GGTP 469 U/L (12-43)
[2024-11-20] MEDS: ZOFRAN 4 MG IV (15:51)
[2024-11-20] MEDS: MELATONIN 6 MG PO (21:55)
[2024-11-20] MEDS: CYTOTEC 200 MCG PO (22:52)
[2024-11-21] VITALS (16 sets, daily range): BP systolic 78–115; BP diastolic 52–73; BMI 49.5
[2024-11-21 07:49] LABS: Hematocrit 29.1 % (37.0-47.0); Hemoglobin 9.8 g/dL (12.0-16.0); Mean Corp Hgb Conc. 33.7 g/dL (33.0-37.0); Mean Corpuscular Hgb 26.6 pg (27.0-31.0); Mean Corpuscular Volume 79.1 fL (81.0-99.0); Mean Platelet Volume 9.2 fL (7.4-10.4); Platelet Count 315 10^3/uL (130-400); Red Blood Cell Count 3.68 10^6/uL (4.20-5.40); Red Cell Dist. Width 19.7 % (11.5-14.5); White Blood Cell Count 11.6 10^3/uL (4.8-10.8)
[2024-11-21 08:04] LABS: ALT (SGPT) 74 U/L (0-35); AST (SGOT) 177 U/L (14-36); Albumin 2.8 g/dl (3.5-5.0); Blood Urea Nitrogen 21 mg/dl (7-17); Calcium 8.5 mg/dl (8.4-10.2); Carbon Dioxide 25 mmol/L (22-30); Chloride 97 mmol/L (98-107); Estimated Creatinine Clearance 107 ml/min; Glucose 107 mg/dl (70-99); Potassium 3.5 mmol/L (3.5-5.1); Sodium 133 mmol/L (135-145); Total Bilirubin 5.4 mg/dl (0.2-1.3); Total Protein 6.8 g/dl (6.3-8.2); eGFR > 60.00
[2024-11-21 08:13] LABS: Alkaline Phosphatase 1969 U/L (38-126)
[2024-11-21 08:35] LABS: CEA 13.8 ng/ml
[2024-11-21 08:40] LABS: AFP Male/Tumor Marker 1.46 ng/ml
--- NOTE | 2024-11-21 09:15 | W.PN.GI.CBS2 ---
Addendum entered and electronically signed by Marcelo Piña MD 11/21/24 13:43:
I saw and examined the patient.
The RISK INTERN or PA's note was reviewed and I agree with the note.
Comment:
Pt with no particular complaints, going for bulk filler surgery
abd: soft
impression
abnl lfts
mildly elevated CEA
abnormal imaging
plan:
follow lfts ?metastatic disease
await bulk filler surgery finding
if needs further w/u may consider colonoscopy vs liver bx
Original Note:
Today's Communication / Plan
-
Etiology of symptoms with concern for malignant process
appreciate DRY MOP MAKER eval s/p MRI pelvis as noted for D+ C
pending DRY MOP MAKER finding -- if any need for further eval with colonoscopy with elevated CEA, vs bx - liver vs other
t/c oncology eval
alk phos may be high with spinal lesion and bone drive--alk phos [id number] with [id number] on admission
AFP 1.46, CEA 13.8 , and CA 19-9 pending, and CA 125-- will try to add
trend labs
discussed finding of abd MRI with patient and aware of results
support given to patient as no contact-- she did mention Kerrie Arana her therapist that she is close with if needed for any support
Assessment / Plan
-
Pt is a 64yo presents with hx HTN, hyperlipidemia, schizophrenia, NIDDM (on Ozempic) obesity, GI bleed- CGE with EGD 2018 with grade D esophagitis, ENRIQUE, chronic ambulatory dysfunction, impaired cognition/ intellectual disability , mariely presents
with onset of vaginal bleeding. In ER she also had complaints of nausea, vomiting, abdominal pain, recent bloody emesis, blood diarrhea and urinary bleeding. On admission pt also noted with WBC 11.7, hbg 10.4, Na 130, K 3.1, cl 94, ferritin 615,
bili 6.4, D bili 4.8, AST 179, ALT 72, alk phos 1994 (with normal LFT's 10/2023) albumin 2.7, and lipase 41. INR 1.33. ER rectal with blood in vaginal area no rectal bleeding. She has completed several imaging studies with Us pelvis with
endometrial thickening concern for hyperplasia or carcinoma. She also completed CT and MRI with liver lesions - MRI suggest Hamartomas vs less likely mets, microabscess or caroli disease. recommended repeat in 3-6 months. There was also intra and
extrahepatic duct dilatation likely post mariely, no stricture or filling defect. Also noted on Ct with mild upper retroperitoneal adenopathy reactive vs mets.+ family hx mother with colon CA.
11/20/24 MR abdomen addendum:
There are scattered lesions within the visualized vertebral bodies, possibly metastases. Additionally there are mildly enlarged upper abdominal lymph nodes in the portacaval and retroperitoneal regions, reactive versus metastatic. These findings may
increase the likelihood that the liver lesions could represent hypoenhancing metastases.
11/21/24 MR pelvis
The endometrium measures 9 mm in thickness, similar compared to the recent pelvic ultrasound.
Multiple uterine fibroids, at least two of which have submucosal components.
Numerous lesions throughout the imaged osseous structures including the lumbar spine, sacrum, pelvis, and bilateral proximal femurs are highly suspicious for osseous metastatic disease.
-increased LFT's -- concern for lumbar spine lesions -mild upper abdominal retroperineal adenopathy
-imaging with concern for mets spine, sacrum, pelvis, femur and occult process
-nausea/vomiting/abdominal pain
-vaginal bleeding- US with endometrial thickening
-intra and extrahepatic biliary dilation post mariely vs other
-elevated CEA
-bloody emesis
-blood diarrhea
-constipation
-mild anemia
-leukocytosis
-hyponatremia
-hypokalemia
other medical problems:
-HTN
-hyperlipidemia
-schizophrenia
-NIDDM
-obesity
PLAN:
Etiology of symptoms with concern for malignant process
appreciate DRY MOP MAKER eval s/p MRI pelvis as noted for D+ C
pending DRY MOP MAKER finding -- if any need for further eval with colonoscopy with elevated CEA, vs bx - liver vs other
t/c oncology eval
alk phos may be high with spinal lesion and bone drive--alk phos [id number] with [id number] on admission
AFP 1.46, CEA 13.8 , and CA 19-9 pending, and CA 125-- will try to add
trend labs
discussed finding of abd MRI with patient and aware of results
support given to patient as no contact-- she did mention Kerrie Arana her therapist that she is close with if needed for any support
Subjective
Subjective
Date of Service: November 21, 2024
NPO for DRY MOP MAKER procedure and MRI-- still some lower abdominal and back pain no rectal bleeding noted per staff
Objective
Data Reviewed
Laboratory Data:
Laboratory Results
11/21/24 07:25
11/21/24 07:24
Laboratory Results
PT 16.8 Sec (11.4-14.6) H 11/20/24 03:40
INR 1.33 11/20/24 03:40
Magnesium 2.2 mg/dl (1.6-2.3) 11/20/24 11:04
Total Bilirubin 5.4 mg/dl (0.2-1.3) H 11/21/24 07:24
AST 177 U/L (14-36) H 11/21/24 07:24
ALT 74 U/L (0-35) H 11/21/24 07:24
Alkaline Phosphatase 1969 U/L (38-126) H 11/21/24 07:24
Lipase 41 U/L (23-300) 11/19/24 23:17
Vital Signs and I&O:
Vital Signs
Temp Pulse Resp BP Pulse Ox
97.7 F 94 18 98/56 95
11/21/24 07:47 11/21/24 07:47 11/21/24 07:47 11/21/24 07:47 11/21/24 07:47
I&O
11/20/24 11/21/24 11/22/24
06:59 06:59 06:59
Intake Total 540 / 540
Output Total 300 / 300
Balance 240 / 240
Physical Exam
Physical Exam
HEENT: Anicteric and Moist mucous membranes
Cardiology: Normal Sinus Rhythm
Pulmonary: Clear
GI: Soft, Non Distended and Tender (mild lower mid abdomen )
Extremities: Other (leg atrophy, chronic immobility )
Neuro: Non Focal
[2024-11-21] MEDS: CELEXA 40 MG PO (09:56)
[2024-11-21] MEDS: PROTONIX 40 MG PO (09:57)
[2024-11-21] MEDS: COZAAR PO (09:57)
[2024-11-21] MEDS: HEPARIN 5000 UNITS SC ×2 (09:57→16:15)
[2024-11-21] MEDS: FEOSOL 325 MG PO ×2 (09:57→21:02)
--- NOTE | 2024-11-21 12:08 | CM ---
Addendum entered by Caro Ballard RN 11/21/24 15:16:
[facility]:
Call report to: [phone] ask for supervisor food checkers and cashiers
Fax report to: [phone]
Original Note:
Reviewed the chart notes. Per notes, plan is for a hysteroscopy, dilation and curettage today or tomorrow. CM continues to be available to patient/family and is monitoring medical plan for needs at discharge.
Plan: Discharge back to [facility] when medically stable.
--- NOTE | 2024-11-21 12:13 | W.IMMPOSTOP ---
Addendum entered and electronically signed by Mary Doss DO 11/21/24 12:25:
Correction general anesthesia ET
Original Note:
Surgical Immed Post Op Note
-
Primary Surgeon: Mary Doss DO
Assisting Surgeon: none
Pre-op Diagnosis: Postmenopausal bleeding; morbid obesity
Post-op Diagnosis: Same; suspected endometrial carcinoma pending pathology
Procedure Performed: Hysteroscopy D&C
Anesthesia Type: General anesthesia, LMA- Dr. Hager
Specimen / Cultures: 1. Endocervical curettings 2. Endometrial curettings
Estimated Blood Loss: 10 mL
Fluid deficit 110 mL normal saline solution
Complications: None
Operative Findings: Uterus sounded to 8 cm. Initial hysteroscopic findings: Difficult visualization due to presence of blood and clot in the endometrial cavity. Sharp curettage had to be performed first. Endocervical curette curettings collected
then endometrial curettings. Hysteroscope replaced after clearing out clot. Irregular appearing tissue suspicious for endometrial carcinoma is noted. Bilateral tubal ostia visualized. Urine is very concentrated, oragne tinged-sample sent for
urine culture.
Counts correct x 2.
--- NOTE | 2024-11-21 12:58 | W.PN.HOSP.TC ---
Today's Communication/Plan
-
see note
Assessment / Plan
Assessment / Plan
MR a/p
Innumerable scattered small nonenhancing hepatic lesions as described. 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 Less likely differentials include atypical liver metastases, microabscesses, or Caroli
disease. As a conservative measure, recommend follow-up MRI abdomen without and with Eovist contrast in 3-6 months.
Diffuse prominence of the intra- and extra-hepatic biliary ducts, likely within normal limits given patient age and postcholecystectomy state. No discrete biliary strictures or filling defects.
- Radiology addendum: There are scattered lesions within the visualized vertebral bodies, possibly metastases. Additionally there are mildly enlarged upper abdominal lymph nodes in the portacaval and retroperitoneal regions, reactive versus
metastatic. These findings may increase the likelihood that the liver lesions could represent hypoenhancing metastases.
CT a/p
Heterogeneous liver parenchyma with the suggestion of numerous small intraparenchymal liver lesions. Hepatic metastases versus other underlying infiltrative process. This appears to be new compared to the CT abdomen/pelvis from 01/12/2019. The
patient is currently scheduled for an MRI of the abdomen, at which time further evaluation of the liver is recommended.
Bile duct dilatation may be secondary to the previous cholecystectomy. No appreciable choledocholithiasis by CT.
Mild upper retroperitoneal lymphadenopathy, reactive versus metastatic.
Pelvic US
The endometrium measures 9 mm in thickness, which is considered abnormally thickened for a symptomatic postmenopausal patient (greater than 5 mm). Findings could be secondary to endometrial hyperplasia or endometrial carcinoma. Sonographic
evaluation is limited by patient body habitus.

1. Vaginal bleeding
Possible endometrial malignancy
-Pelvic US finding as above
-underwent hysteroscopy and D&C today on 11/21 -finding concerning for possible endometrial carcinoma
-Await further pathology report
-AFP/CA125 wnl . CA19-9 pending. CEA 13.8 (elevated)
-Gynecology help appreciated
-Monitor for any further vaginal bleeding
2. Suspected metastatic disease of liver/spine
Hyperbilirubinemia
Elevated ALP
- MRI/CT abdomen pelvis showing nonenhancing hepatic lesions with wide variety of differential as mentioned above MRI abdomen report
- There was also visible bony metastasis
- If proven to be endometrial carcinoma likely will get a unifying diagnosis if not may require further workup with liver biopsy
- Will involve onc gynecology versus medical oncology depending on the biopsy finding
- Continue monitoring LFT
- GI help appreciated
3. Hyponatremia
- Mild, monitor
Essential hypertension
Schizophrenia
Iron deficiency anemia
Chronic dysfunction/wheelchair-bound
Intellectual disability
Cholecystectomy
DVT PPX - Heparin subq
Full code
Care plan discussed with GI/Learning And Development Specialist
Total time spent 53-minute
Anticipated Discharge: > 48 hours
Subjective/Interval History
-
Date of Service: November 21, 2024
Patient seen post procedure
Resting comfortably in bed
Denies any abdominal pain/nausea
Objective Data
-
Labs:
Laboratory Results
11/21/24 11/21/24
07:24 07:25
WBC 11.6 H
Hgb 9.8 L
Hct 29.1 L
Plt Count 315
Sodium 133 L
Potassium 3.5
Chloride 97 L
Carbon Dioxide 25
BUN 21 H
Creatinine 0.8
Glucose 107 H
Calcium 8.5
Total Bilirubin 5.4 H
AST 177 H
ALT 74 H
Alkaline Phosphatase 1969 H
Vital Signs:
Vital Signs
Temp Pulse Resp BP Pulse Ox
98.7 F 97 28 95/65 97
11/21/24 12:10 11/21/24 12:48 11/21/24 12:48 11/21/24 12:48 11/21/24 12:48
I&O
11/20/24 11/21/24 11/22/24
06:59 06:59 06:59
Intake Total 540 / 540
Output Total 300 / 300
Balance 240 / 240
Review of Systems
-
Respiratory: Reports No Symptoms
Cardiac: Reports No Symptoms
Abdomen/GI: Reports No Symptoms
Physical Exam
-
HEENT: Negative Oxygen
GI: Soft, Nontender and Nondistended
Musculoskeletal: No Edema
Neuro: Awake, Alert, Oriented, No Motor Deficits and Nonfocal/Grossly Intact
Psych: Calm
[2024-11-21] MEDS: RISPERDAL 2 MG PO ×2 (13:56→21:02)
[2024-11-21] MEDS: MELATONIN PO (21:49)
[2024-11-22] MEDS: HEPARIN 5000 UNITS SC ×3 (00:13→17:33)
[2024-11-22 03:10] VITALS: BP 107/68
[2024-11-22 08:04] VITALS: BP 110/68
[2024-11-22] MEDS: RISPERDAL 2 MG PO ×2 (08:12→20:00)
[2024-11-22] MEDS: PROTONIX 40 MG PO (08:12)
[2024-11-22] MEDS: FEOSOL 325 MG PO ×2 (08:13→20:00)
[2024-11-22] MEDS: CELEXA 40 MG PO (08:13)
[2024-11-22] MEDS: COZAAR 50 MG PO (08:13)
[2024-11-22 08:52] LABS: Hematocrit 31.1 % (37.0-47.0); Hemoglobin 10.3 g/dL (12.0-16.0); Mean Corp Hgb Conc. 33.1 g/dL (33.0-37.0); Mean Corpuscular Volume 81.4 fL (81.0-99.0); Red Blood Cell Count 3.82 10^6/uL (4.20-5.40); White Blood Cell Count 12.1 10^3/uL (4.8-10.8)
[2024-11-22 08:53] LABS: Mean Platelet Volume 9.3 fL (7.4-10.4); Platelet Count 375 10^3/uL (130-400); Red Cell Dist. Width 19.6 % (11.5-14.5)
[2024-11-22 09:20] LABS: ALT (SGPT) 72 U/L (0-35); AST (SGOT) 174 U/L (14-36); Albumin 2.8 g/dl (3.5-5.0); Blood Urea Nitrogen 19 mg/dl (7-17); Calcium 8.7 mg/dl (8.4-10.2); Carbon Dioxide 29 mmol/L (22-30); Chloride 97 mmol/L (98-107); Estimated Creatinine Clearance 122 ml/min; Glucose 124 mg/dl (70-99); Potassium 3.5 mmol/L (3.5-5.1); Sodium 133 mmol/L (135-145); Total Bilirubin 4.1 mg/dl (0.2-1.3); Total Protein 6.9 g/dl (6.3-8.2); eGFR > 60.00
[2024-11-22 09:35] LABS: Alkaline Phosphatase 1975 U/L (38-126)
--- NOTE | 2024-11-22 09:43 | W.PN.GI.CBS2 ---
Today's Communication / Plan
-
tolerating po, no active gi issue
Assessment / Plan
-
Pt with probable endometrial cancer with abnl lfts from possible mets, bilirubin trending down; CEA mildly elevated
plan:
1. metal roaster f/u
2. monitor lfts which are likely elevated due to multifactorial causes but bilirubin trending down
3. no active GI issue. If elective colonoscopy needed in future can let us know
will sign off call with questions
Subjective
Subjective
Date of Service: November 22, 2024
Pt w/o complaints. yesterday had metal roaster procedure with probable endometrial cancer
Objective
Data Reviewed
Laboratory Data:
Laboratory Results
11/22/24 07:56
11/22/24 07:56
Laboratory Results
PT 16.8 Sec (11.4-14.6) H 11/20/24 03:40
INR 1.33 11/20/24 03:40
Magnesium 2.2 mg/dl (1.6-2.3) 11/20/24 11:04
Total Bilirubin 4.1 mg/dl (0.2-1.3) H 11/22/24 07:56
AST 174 U/L (14-36) H 11/22/24 07:56
ALT 72 U/L (0-35) H 11/22/24 07:56
Alkaline Phosphatase 1975 U/L (38-126) H 11/22/24 07:56
Lipase 41 U/L (23-300) 11/19/24 23:17
Vital Signs and I&O:
Vital Signs
Temp Pulse Resp BP Pulse Ox
97.5 F 86 16 110/68 91
11/22/24 08:04 11/22/24 08:13 11/22/24 08:04 11/22/24 08:13 11/22/24 08:04
I&O
11/21/24 11/22/2411/23/25
06:59 06:59 06:59
Intake Total 540 / 540 955 / 955
Output Total 300 / 300
Balance 240 / 240 955 / 955
Physical Exam
Physical Exam
GI: Soft and Non Tender
[2024-11-22 10:54] VITALS: BP 115/59
--- NOTE | 2024-11-22 13:03 | W.PN.HOSP.TC ---
Addendum entered and electronically signed by Jaya Womack MD 11/22/24 13:40:
Talk to interventional radiology, reviewed images and liver lesions are small, does not exclude candidacy for liver biopsy
With potential low yield or failure to target liver lesions I have discussed with IRAD that I will hold the consult and wait for endometrial biopsy to report. Depending on the result we will discuss with water safety instructor onc/med onc for further need of liver
biopsy.
Original Note:
Today's Communication/Plan
-
await tumor marker report
bladder scan for incontinence
IRAD evaluation for liver biopsy
f/u LFT
Assessment / Plan
Assessment / Plan
MR a/p
Innumerable scattered small nonenhancing hepatic lesions as described. 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 Less likely differentials include atypical liver metastases, microabscesses, or Caroli
disease. As a conservative measure, recommend follow-up MRI abdomen without and with Eovist contrast in 3-6 months.
Diffuse prominence of the intra- and extra-hepatic biliary ducts, likely within normal limits given patient age and postcholecystectomy state. No discrete biliary strictures or filling defects.
- Radiology addendum: There are scattered lesions within the visualized vertebral bodies, possibly metastases. Additionally there are mildly enlarged upper abdominal lymph nodes in the portacaval and retroperitoneal regions, reactive versus
metastatic. These findings may increase the likelihood that the liver lesions could represent hypoenhancing metastases.
CT a/p
Heterogeneous liver parenchyma with the suggestion of numerous small intraparenchymal liver lesions. Hepatic metastases versus other underlying infiltrative process. This appears to be new compared to the CT abdomen/pelvis from 01/12/2019. The
patient is currently scheduled for an MRI of the abdomen, at which time further evaluation of the liver is recommended.
Bile duct dilatation may be secondary to the previous cholecystectomy. No appreciable choledocholithiasis by CT.
Mild upper retroperitoneal lymphadenopathy, reactive versus metastatic.
Pelvic US
The endometrium measures 9 mm in thickness, which is considered abnormally thickened for a symptomatic postmenopausal patient (greater than 5 mm). Findings could be secondary to endometrial hyperplasia or endometrial carcinoma. Sonographic
evaluation is limited by patient body habitus.

1. Vaginal bleeding
Possible endometrial malignancy
-Pelvic US finding as above
-underwent hysteroscopy and D&C today on 11/21 -finding concerning for possible endometrial carcinoma
-Await further pathology report
-AFP/CA125 wnl . CA19-9 pending. CEA 13.8 (elevated)
-Gynecology help appreciated
-Monitor for any further vaginal bleeding
2. Suspected metastatic disease of liver/spine
Hyperbilirubinemia
Elevated ALP
- MRI/CT abdomen pelvis showing nonenhancing hepatic lesions with wide variety of differential as mentioned above MRI abdomen report
- There was also visible bony metastasis
- If proven to be endometrial carcinoma likely will get a unifying diagnosis if not may require further workup with liver biopsy
- Will involve onc gynecology versus medical oncology depending on the biopsy finding
- Continue monitoring LFT
- Asked IRAD to do a liver biopsy.
- GI help appreciated
3. Hyponatremia
- Mild, monitor
Essential hypertension
Schizophrenia
Iron deficiency anemia
Chronic dysfunction/wheelchair-bound
Intellectual disability
Cholecystectomy
DVT PPX - Heparin subq
Full code
Anticipated Discharge: > 48 hours
Subjective/Interval History
-
Date of Service: November 22, 2024
no complains overnight
no reported blood in stool
no vaginal bleeding
Objective Data
-
Labs:
Laboratory Results
11/22/24 11/22/24
07:45 07:56
WBC 12.1 H
Hgb 10.3 L
Hct 31.1 L
Plt Count 375
Sodium Cancelled 133 L
Potassium Cancelled 3.5
Chloride Cancelled 97 L
Carbon Dioxide Cancelled 29
BUN Cancelled 19 H
Creatinine Cancelled 0.7
Glucose Cancelled 124 H
Calcium Cancelled 8.7
Total Bilirubin 4.1 H
AST 174 H
ALT 72 H
Alkaline Phosphatase 1975 H
Vital Signs:
Vital Signs
Temp Pulse Resp BP Pulse Ox
97.6 F 83 14 115/59 91
11/22/24 10:54 11/22/24 10:54 11/22/24 10:54 11/22/24 10:54 11/22/24 12:58
I&O
11/21/24 11/22/24 11/23/24
06:59 06:59 06:59
Intake Total 540 / 540 955 / 955
Output Total 300 / 300
Balance 240 / 240 955 / 955
Review of Systems
-
Respiratory: Reports No Symptoms
Cardiac: Reports No Symptoms
Abdomen/GI: Reports No Symptoms
Physical Exam
-
HEENT: Negative Oxygen
GI: Soft, Nontender and Nondistended
Musculoskeletal: No Edema
Neuro: Awake, Alert, Oriented, No Motor Deficits and Nonfocal/Grossly Intact
Psych: Calm
--- NOTE | 2024-11-22 15:22 | CM ---
Reviewed the chart notes and spoke with the patient at the bedside. IMM reviewed and placed on chart. CM continues to be available to patient/family and is monitoring medical plan for needs at discharge.
Plan: Discharge back to [facility] when medically stable.
[2024-11-22 15:34] VITALS: BP 145/86
[2024-11-22] MEDS: DESENEX/MITRAZOL/ZEASORB 1 APPLIC TOPICAL (20:01)
[2024-11-22 20:42] LABS: CA 19-9 487 U/mL (<=35)
[2024-11-22] MEDS: MELATONIN 6 MG PO (23:16)
[2024-11-22 23:49] VITALS: BP 115/61
[2024-11-23] MEDS: HEPARIN 5000 UNITS SC ×3 (01:23→15:41)
[2024-11-23] MEDS: ZOFRAN 4 MG PO (03:23)
[2024-11-23 07:15] VITALS: BP 91/69
[2024-11-23 07:27] LABS: Hematocrit 29.2 % (37.0-47.0); Hemoglobin 9.7 g/dL (12.0-16.0); Mean Corp Hgb Conc. 33.2 g/dL (33.0-37.0); Mean Corpuscular Hgb 26.7 pg (27.0-31.0); Mean Corpuscular Volume 80.4 fL (81.0-99.0); Mean Platelet Volume 9.3 fL (7.4-10.4); Platelet Count 307 10^3/uL (130-400); Red Blood Cell Count 3.63 10^6/uL (4.20-5.40); Red Cell Dist. Width 19.5 % (11.5-14.5)
[2024-11-23] MEDS: COZAAR PO (08:18)
[2024-11-23] MEDS: FEOSOL 325 MG PO ×2 (08:19→21:27)
[2024-11-23] MEDS: PROTONIX 40 MG PO (08:19)
[2024-11-23] MEDS: RISPERDAL 2 MG PO ×2 (08:19→21:27)
[2024-11-23] MEDS: CELEXA 40 MG PO (08:19)
[2024-11-23] MEDS: DESENEX/MITRAZOL/ZEASORB 1 APPLIC TOPICAL ×2 (08:21→20:54)
[2024-11-23 09:25] LABS: ALT (SGPT) 97 U/L (0-35); AST (SGOT) 261 U/L (14-36); Albumin 2.9 g/dl (3.5-5.0); Blood Urea Nitrogen 16 mg/dl (7-17); Calcium 8.8 mg/dl (8.4-10.2); Carbon Dioxide 25 mmol/L (22-30); Chloride 94 mmol/L (98-107); Estimated Creatinine Clearance 122 ml/min; Glucose 109 mg/dl (70-99); Potassium 3.6 mmol/L (3.5-5.1); Sodium 130 mmol/L (135-145); Total Bilirubin 4.2 mg/dl (0.2-1.3); Total Protein 6.7 g/dl (6.3-8.2); eGFR > 60.00
[2024-11-23 11:29] LABS: Alkaline Phosphatase 2049 U/L (38-126)
[2024-11-23] MEDS: FLOMAX 0.8 MG PO (11:43)
--- NOTE | 2024-11-23 12:31 | W.PN.HOSP.TC ---
Today's Communication/Plan
-
see note
await path report
Assessment / Plan
Assessment / Plan
MR a/p
Innumerable scattered small nonenhancing hepatic lesions as described. 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 Less likely differentials include atypical liver metastases, microabscesses, or Caroli
disease. As a conservative measure, recommend follow-up MRI abdomen without and with Eovist contrast in 3-6 months.
Diffuse prominence of the intra- and extra-hepatic biliary ducts, likely within normal limits given patient age and postcholecystectomy state. No discrete biliary strictures or filling defects.
- Radiology addendum: There are scattered lesions within the visualized vertebral bodies, possibly metastases. Additionally there are mildly enlarged upper abdominal lymph nodes in the portacaval and retroperitoneal regions, reactive versus
metastatic. These findings may increase the likelihood that the liver lesions could represent hypoenhancing metastases.
CT a/p
Heterogeneous liver parenchyma with the suggestion of numerous small intraparenchymal liver lesions. Hepatic metastases versus other underlying infiltrative process. This appears to be new compared to the CT abdomen/pelvis from 01/12/2019. The
patient is currently scheduled for an MRI of the abdomen, at which time further evaluation of the liver is recommended.
Bile duct dilatation may be secondary to the previous cholecystectomy. No appreciable choledocholithiasis by CT.
Mild upper retroperitoneal lymphadenopathy, reactive versus metastatic.
Pelvic US
The endometrium measures 9 mm in thickness, which is considered abnormally thickened for a symptomatic postmenopausal patient (greater than 5 mm). Findings could be secondary to endometrial hyperplasia or endometrial carcinoma. Sonographic
evaluation is limited by patient body habitus.

1. Vaginal bleeding
Possible endometrial carcinoma
-Pelvic US finding as above
-underwent hysteroscopy and D&C today on 11/21 -finding concerning for possible endometrial carcinoma
-Await further pathology report
-AFP/CA125 wnl . CA19-9 pending. CEA 13.8 (elevated)
-Gynecology help appreciated
-Monitor for any further vaginal bleeding
2. Suspected metastatic disease of liver/spine
Hyperbilirubinemia
Elevated ALP
- MRI/CT abdomen pelvis showing nonenhancing hepatic lesions with wide variety of differential as mentioned above MRI abdomen report
- There was also visible bony metastasis
- If proven to be endometrial carcinoma likely will get a unifying diagnosis if not may require further workup with liver biopsy
- Will involve onc gynecology versus medical oncology depending on the biopsy finding
- Continue monitoring LFT
- Talked to interventional radiology, reviewed images and liver lesions are small, does not exclude candidacy for liver biopsy
With potential low yield or failure to target liver lesions I have discussed with YUMIKO that I will hold the consult and wait for endometrial biopsy to report. Depending on the result we will discuss with enrollment services vice president onc/med onc for further need of liver
biopsy.
3. Hyponatremia
- Mild, monitor
4, Normocytic anemia
- continue monitoring. remains stable 9-10 range
Essential hypertension
Schizophrenia
Iron deficiency anemia
Chronic dysfunction/wheelchair-bound
Intellectual disability
Cholecystectomy
DVT PPX - Heparin subq
Full code
Anticipated Discharge: > 48 hours
Subjective/Interval History
-
Date of Service: November 23, 2024
no problems overnight
again some spotting/vaginal bleeding noted in the morning
patient remains incontinent
Objective Data
-
Labs:
Laboratory Results
11/23/24
06:50
WBC 10.0
Hgb 9.7 L
Hct 29.2 L
Plt Count 307
Sodium 130 L
Potassium 3.6
Chloride 94 L
Carbon Dioxide 25
BUN 16
Creatinine 0.7
Glucose 109 H
Calcium 8.8
Total Bilirubin 4.2 H
AST 261 H
ALT 97 H
Alkaline Phosphatase 2049 H
Vital Signs:
Vital Signs
Temp Pulse Resp BP Pulse Ox
97.9 F 97 18 91/69 96
11/23/24 07:15 11/23/24 08:18 11/23/24 07:15 11/23/24 08:18 11/23/24 07:15
I&O
11/22/24 11/23/24 11/24/24
06:59 06:59 06:59
Intake Total 955 / 955 1620 / 1620
Balance 955 / 955 1620 / 1620
Review of Systems
-
Respiratory: Reports No Symptoms
Cardiac: Reports No Symptoms
Abdomen/GI: Reports No Symptoms
Physical Exam
-
HEENT: Negative Oxygen
GI: Soft, Nontender and Nondistended
Musculoskeletal: No Edema
Neuro: Awake, Alert, Oriented, No Motor Deficits and Nonfocal/Grossly Intact
Psych: Calm
--- NOTE | 2024-11-23 12:48 | CM ---
Reviewed the chart notes. CM continues to be available to patient/family and is monitoring medical plan for needs at discharge.
Plan: Discharge back to [facility] when medically stable. No precert required.
Call report to: [phone] ask for package center supervisor
Fax report to: [phone]
Medical necessity and transport forms on chart.
[2024-11-23 15:57] VITALS: BP 103/60
[2024-11-23] MEDS: FEOSOL PO (20:53)
[2024-11-23] MEDS: RISPERDAL PO (20:53)
[2024-11-23] MEDS: MELATONIN 6 MG PO (21:27)
[2024-11-23 23:30] VITALS: BP 94/52
[2024-11-24] MEDS: HEPARIN 5000 UNITS SC ×4 (00:05→23:39)
[2024-11-24 07:20] VITALS: BP 99/52
[2024-11-24 07:51] LABS: Hematocrit 28.1 % (37.0-47.0); Hemoglobin 9.4 g/dL (12.0-16.0); Mean Corp Hgb Conc. 33.5 g/dL (33.0-37.0); Mean Corpuscular Hgb 26.7 pg (27.0-31.0); Mean Corpuscular Volume 79.8 fL (81.0-99.0); Platelet Count 262 10^3/uL (130-400); Red Blood Cell Count 3.52 10^6/uL (4.20-5.40); Red Cell Dist. Width 19.3 % (11.5-14.5); White Blood Cell Count 9.9 10^3/uL (4.8-10.8)
[2024-11-24 08:48] LABS: ALT (SGPT) 103 U/L (0-35); AST (SGOT) 250 U/L (14-36); Albumin 2.4 g/dl (3.5-5.0); Blood Urea Nitrogen 13 mg/dl (7-17); Calcium 8.8 mg/dl (8.4-10.2); Carbon Dioxide 29 mmol/L (22-30); Chloride 94 mmol/L (98-107); Estimated Creatinine Clearance > 125 ml/min; Glucose 104 mg/dl (70-99); Potassium 3.9 mmol/L (3.5-5.1); Sodium 130 mmol/L (135-145); Total Bilirubin 4.3 mg/dl (0.2-1.3); eGFR > 60.00
[2024-11-24] MEDS: FLOMAX 0.8 MG PO (08:58)
[2024-11-24] MEDS: FEOSOL 325 MG PO ×2 (08:59→21:33)
[2024-11-24] MEDS: COZAAR 25 MG PO (08:59)
[2024-11-24] MEDS: PROTONIX 40 MG PO (08:59)
[2024-11-24] MEDS: RISPERDAL 2 MG PO ×2 (08:59→21:35)
[2024-11-24] MEDS: CELEXA 40 MG PO (08:59)
[2024-11-24] MEDS: ZOFRAN 4 MG IV (09:00)
[2024-11-24] MEDS: DESENEX/MITRAZOL/ZEASORB 1 APPLIC TOPICAL ×2 (09:00→21:35)
[2024-11-24 09:06] LABS: Alkaline Phosphatase 2065 U/L (38-126)
--- NOTE | 2024-11-24 09:31 | W.PN.UPDATE ---
Update Note
Progress Note Update
Reviewed path report from D&C with pt, benign polyp and proliferative endometrial tissue. PAP result not in yet. Pt reports 'heavy' bleeding overnight, nursing reports bleeding was with BM. Pt denies pain.
Bleeding after D&C expected, should taper, can take up to 2 weeks.
Would recommend patient remain in hospital until PAP result done and vaginal bleeding appears resolved as well given patient's circumstances. If bleeding persists, would recommend GEODETIC SURVEYOR TECHNOLOGIST/ONC consultation.
--- NOTE | 2024-11-24 12:16 | W.PN.HOSP.TC ---
Today's Communication/Plan
-
IRAD consult for liver biopsy
continue other care
Assessment / Plan
Assessment / Plan
MR a/p
Innumerable scattered small nonenhancing hepatic lesions as described. 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 Less likely differentials include atypical liver metastases, microabscesses, or Caroli
disease. As a conservative measure, recommend follow-up MRI abdomen without and with Eovist contrast in 3-6 months.
Diffuse prominence of the intra- and extra-hepatic biliary ducts, likely within normal limits given patient age and postcholecystectomy state. No discrete biliary strictures or filling defects.
- Radiology addendum: There are scattered lesions within the visualized vertebral bodies, possibly metastases. Additionally there are mildly enlarged upper abdominal lymph nodes in the portacaval and retroperitoneal regions, reactive versus
metastatic. These findings may increase the likelihood that the liver lesions could represent hypoenhancing metastases.
CT a/p
Heterogeneous liver parenchyma with the suggestion of numerous small intraparenchymal liver lesions. Hepatic metastases versus other underlying infiltrative process. This appears to be new compared to the CT abdomen/pelvis from 01/12/2019. The
patient is currently scheduled for an MRI of the abdomen, at which time further evaluation of the liver is recommended.
Bile duct dilatation may be secondary to the previous cholecystectomy. No appreciable choledocholithiasis by CT.
Mild upper retroperitoneal lymphadenopathy, reactive versus metastatic.
Pelvic US
The endometrium measures 9 mm in thickness, which is considered abnormally thickened for a symptomatic postmenopausal patient (greater than 5 mm). Findings could be secondary to endometrial hyperplasia or endometrial carcinoma. Sonographic
evaluation is limited by patient body habitus.

1. Vaginal bleeding
-Pelvic US finding as above
-underwent hysteroscopy and D&C today on 11/21 -finding concerning for possible endometrial carcinoma
-Endometrial biopsy report came negative for any malignancy.
-AFP/CA125 wnl . CA19-9 pending. CEA 13.8 (elevated)
-Gynecology help appreciated
-Monitor for any further vaginal bleeding
2. Suspected metastatic disease of liver/spine
Hyperbilirubinemia
Elevated ALP
- MRI/CT abdomen pelvis showing nonenhancing hepatic lesions with wide variety of differential as mentioned above MRI abdomen report
- There was also visible bony metastasis
- If proven to be endometrial carcinoma likely will get a unifying diagnosis if not may require further workup with liver biopsy
- Continue monitoring LFT
- Initial working diagnosis of endometrial carcinoma with possible metastatic to liver is questionable as endometrial biopsy came negative. Contacted IR for dedicated liver biopsy to see if get a tissue diagnosis
- Will require med oncology versus Medication Administration Professional oncology evaluation based on if malignancy found and what is primary.
3. Hyponatremia
- Mild,monitor
- related to malignancy?
4, Normocytic anemia
- continue monitoring. remains stable 9-10 range
5. Nausea/vomiting
- new overnight, abd exam is benign
- symptomatic care and diet as tolerated.
Essential hypertension
Schizophrenia
Iron deficiency anemia
Chronic dysfunction/wheelchair-bound
Intellectual disability
Cholecystectomy
DVT PPX - Heparin subq
Full code
Care plan discussed with gynecology/IRAD
Anticipated Discharge: > 48 hours
Subjective/Interval History
-
Date of Service: November 24, 2024
Patient continues to complain some vaginal bleed
Also developed some nausea vomiting overnight
Objective Data
-
Labs:
Laboratory Results
11/24/24
07:21
WBC 9.9
Hgb 9.4 L
Hct 28.1 L
Plt Count 262
Sodium 130 L
Potassium 3.9
Chloride 94 L
Carbon Dioxide 29
BUN 13
Creatinine 0.6
Glucose 104 H
Calcium 8.8
Total Bilirubin 4.3 H
AST 250 H
ALT 103 H
Alkaline Phosphatase 5 H
Vital Signs:
Vital Signs
Temp Pulse Resp BP Pulse Ox
97.5 F 96 16 99/52 96
11/24/24 07:20 11/24/24 07:20 11/24/24 07:20 11/24/24 07:20 11/24/24 07:20
I&O
11/23/24 11/24/24 11/25/24
06:59 06:59 06:59
Intake Total 1620 / 1620 1000 / 1000
Balance 1620 / 1620 1000 / 1000
Review of Systems
-
Respiratory: Reports No Symptoms
Cardiac: Reports No Symptoms
Abdomen/GI: Reports No Symptoms
Physical Exam
-
HEENT: Negative Oxygen
GI: Soft, Nontender and Nondistended
Musculoskeletal: No Edema
Neuro: Awake, Alert, Oriented, No Motor Deficits and Nonfocal/Grossly Intact
Psych: Calm
[2024-11-24 15:40] VITALS: BP 98/54
--- NOTE | 2024-11-24 17:32 | PTCARENOTE ---
patient has some vaginal bleeding that appears to be mixed with urine due to incontinence. Covidiens were changed 4 times this shift with noticeable yellow/pink tinge on them. MD sr
[2024-11-24] MEDS: MELATONIN 6 MG PO (21:33)
[2024-11-24 23:30] VITALS: BP 88/45
[2024-11-25 02:53] VITALS: BP 98/53
[2024-11-25] MEDS: ZOFRAN 4 MG IV (03:11)
[2024-11-25 06:12] LABS: Hematocrit 29.8 % (37.0-47.0); Hemoglobin 9.6 g/dL (12.0-16.0); Mean Corp Hgb Conc. 32.2 g/dL (33.0-37.0); Mean Corpuscular Hgb 26.2 pg (27.0-31.0); Mean Corpuscular Volume 81.4 fL (81.0-99.0); Mean Platelet Volume 9.4 fL (7.4-10.4); Platelet Count 251 10^3/uL (130-400); Red Blood Cell Count 3.66 10^6/uL (4.20-5.40); Red Cell Dist. Width 19.5 % (11.5-14.5); White Blood Cell Count 10.3 10^3/uL (4.8-10.8)
[2024-11-25 06:46] LABS: ALT (SGPT) 103 U/L (0-35); AST (SGOT) 220 U/L (14-36); Albumin 2.4 g/dl (3.5-5.0); Blood Urea Nitrogen 14 mg/dl (7-17); Calcium 8.8 mg/dl (8.4-10.2); Carbon Dioxide 30 mmol/L (22-30); Chloride 94 mmol/L (98-107); Estimated Creatinine Clearance 107 ml/min; Glucose 146 mg/dl (70-99); Potassium 3.4 mmol/L (3.5-5.1); Sodium 131 mmol/L (135-145); Total Bilirubin 4.8 mg/dl (0.2-1.3); eGFR > 60.00
[2024-11-25 07:11] LABS: Alkaline Phosphatase 2184 U/L (38-126)
[2024-11-25 07:40] VITALS: BP 95/54
[2024-11-25] MEDS: FEOSOL 325 MG PO ×2 (08:51→21:00)
[2024-11-25] MEDS: COZAAR 25 MG PO (08:51)
[2024-11-25] MEDS: HEPARIN 5000 UNITS SC ×2 (08:51→16:59)
[2024-11-25] MEDS: FLOMAX 0.8 MG PO (08:52)
[2024-11-25] MEDS: RISPERDAL 2 MG PO ×2 (08:52→21:00)
[2024-11-25] MEDS: CELEXA 40 MG PO (08:52)
[2024-11-25] MEDS: PROTONIX 40 MG PO (08:52)
[2024-11-25] MEDS: DESENEX/MITRAZOL/ZEASORB 1 APPLIC TOPICAL ×2 (08:52→21:00)
--- NOTE | 2024-11-25 12:56 | W.PN.HOSP.TC ---
Today's Communication/Plan
-
for liver biopsy tomorrow
added reglan to regimen
Assessment / Plan
Assessment / Plan
MR a/p
Innumerable scattered small nonenhancing hepatic lesions as described. 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 Less likely differentials include atypical liver metastases, microabscesses, or Caroli
disease. As a conservative measure, recommend follow-up MRI abdomen without and with Eovist contrast in 3-6 months.
Diffuse prominence of the intra- and extra-hepatic biliary ducts, likely within normal limits given patient age and postcholecystectomy state. No discrete biliary strictures or filling defects.
- Radiology addendum: There are scattered lesions within the visualized vertebral bodies, possibly metastases. Additionally there are mildly enlarged upper abdominal lymph nodes in the portacaval and retroperitoneal regions, reactive versus
metastatic. These findings may increase the likelihood that the liver lesions could represent hypoenhancing metastases.
CT a/p
Heterogeneous liver parenchyma with the suggestion of numerous small intraparenchymal liver lesions. Hepatic metastases versus other underlying infiltrative process. This appears to be new compared to the CT abdomen/pelvis from 01/12/2019. The
patient is currently scheduled for an MRI of the abdomen, at which time further evaluation of the liver is recommended.
Bile duct dilatation may be secondary to the previous cholecystectomy. No appreciable choledocholithiasis by CT.
Mild upper retroperitoneal lymphadenopathy, reactive versus metastatic.
Pelvic US
The endometrium measures 9 mm in thickness, which is considered abnormally thickened for a symptomatic postmenopausal patient (greater than 5 mm). Findings could be secondary to endometrial hyperplasia or endometrial carcinoma. Sonographic
evaluation is limited by patient body habitus.

1. Vaginal bleeding
-Pelvic US finding as above
-underwent hysteroscopy and D&C today on 4/30 -finding concerning for possible endometrial carcinoma
-Endometrial biopsy report came negative for any malignancy.
-AFP/CA125 wnl . CA19-9 pending. CEA 13.8 (elevated)
-Gynecology help appreciated
-Monitor for any further vaginal bleeding
2. Suspected metastatic disease of liver/spine
Hyperbilirubinemia
Elevated ALP
- MRI/CT abdomen pelvis showing nonenhancing hepatic lesions with wide variety of differential as mentioned above MRI abdomen report
- There was also visible bony metastasis
- If proven to be endometrial carcinoma likely will get a unifying diagnosis if not may require further workup with liver biopsy
- Continue monitoring LFT
- Initial working diagnosis of endometrial carcinoma with possible metastatic to liver is questionable as endometrial biopsy came negative. Contacted [facility] for dedicated liver biopsy to see if get a tissue diagnosis
- Will require med oncology versus Member Certification Manager oncology evaluation based on if malignancy found and what is primary.
3. Hyponatremia
- Mild,monitor
- related to malignancy?
4, Normocytic anemia
- continue monitoring. remains stable 9-10 range
5. Nausea/vomiting
- new overnight, abd exam is benign
- Patient remains on Zofran, added Reglan to regimen
Essential hypertension
Schizophrenia
Iron deficiency anemia
Chronic dysfunction/wheelchair-bound
Intellectual disability
Cholecystectomy
DVT PPX - Heparin subq
Full code
Anticipated Discharge: 24 - 48 hours
Subjective/Interval History
-
Date of Service: November 25, 2024
Resting comfortably in bed
Complaining of some nausea
Objective Data
-
Labs:
Laboratory Results
11/25/24
05:30
WBC 10.3
Hgb 9.6 L
Hct 29.8 L
Plt Count 251
Sodium 131 L
Potassium 3.4 L
Chloride 94 L
Carbon Dioxide 30
BUN 14
Creatinine 0.8
Glucose 146 H
Calcium 8.8
Total Bilirubin 4.8 H
AST 220 H
ALT 103 H
Alkaline Phosphatase 2184 H
Vital Signs:
Vital Signs
Temp Pulse Resp BP Pulse Ox
97.6 F 84 16 95/54 98
11/25/24 07:40 11/25/24 07:40 11/25/24 07:40 11/25/24 07:40 11/25/24 07:40
I&O
11/24/24 11/25/24 11/26/24
06:59 06:59 06:59
Intake Total 1000 / 1000 1440 / 1440
Balance 1000 / 1000 1440 / 1440
Review of Systems
-
Respiratory: Reports No Symptoms
Cardiac: Reports No Symptoms
Abdomen/GI: Reports No Symptoms
Physical Exam
-
HEENT: Negative Oxygen
GI: Soft, Nontender and Nondistended
Musculoskeletal: No Edema
Neuro: Awake, Alert, Oriented, No Motor Deficits and Nonfocal/Grossly Intact
Psych: Calm
[2024-11-25] MEDS: REGLAN 5 MG IV ×2 (14:20→21:02)
[2024-11-25 15:30] VITALS: BP 91/47
[2024-11-25] MEDS: MELATONIN 6 MG PO (21:04)
[2024-11-25 23:50] VITALS: BP 97/57
[2024-11-26] VITALS (14 sets, daily range): BP systolic 69–114; BP diastolic 43–65
[2024-11-26] MEDS: HEPARIN 5000 UNITS SC ×3 (00:21→17:25)
[2024-11-26] MEDS: ZOFRAN 4 MG IV ×2 (00:26→13:50)
[2024-11-26] MEDS: REGLAN 5 MG IV ×2 (05:07→20:52)
[2024-11-26] MEDS: COZAAR 25 MG PO (07:51)
[2024-11-26] MEDS: FEOSOL 325 MG PO ×2 (07:51→20:51)
[2024-11-26] MEDS: PROTONIX 40 MG PO (07:51)
[2024-11-26] MEDS: FLOMAX 0.8 MG PO (07:51)
[2024-11-26] MEDS: CELEXA 40 MG PO (07:51)
[2024-11-26] MEDS: DESENEX/MITRAZOL/ZEASORB 1 APPLIC TOPICAL ×2 (07:52→20:53)
[2024-11-26] MEDS: RISPERDAL 2 MG PO ×2 (07:52→20:51)
--- NOTE | 2024-11-26 10:42 | CON.ONC ---
Consultation
-
Date Consultation Requested: 11/26/24
Date Consultation Performed: 11/26/24
Requesting Provider: Marco A Goodwin MD
Performing Provider: Aleshia Gillis MD
Reason for Consultation: Vaginal bleeding with liver and bone lesions
Impression
Impression
Marked elevations in LFT's, mixed pattern
Liver lesions, hamartoma vs mets from ?primary
Bone lesions, etiology unclear
Family history of colon cancer
Hx esophagitis
Vaginal bleeding with abnormal gross appearance to endometrium on D&C but path benign
Intellectual disability
Modest iron overload
Anemia, suspect multifactorial including blood loss, inflammatory state
Plan
Plan
Personally reviewed CT and MRI images.
Case d/w GI.
Constellation of CA 19-9 elevation and obstructive pattern on LFT's is concerning for occult biliary or pancreatic CA; however, no mass or abnormal duct dilatation is seen.
Alk phos elevation seems out of proportion for what we usually see with bone mets. Serum calcium is normal.
Appreciate GI input.
Await path from liver biopsy performed today.
Re vaginal bleeding, op report noted from D&C hysteroscopy, the endometrium described as abnormal appearing but path benign.
Anemia eval so far notable for folate deficiency. Retic count now.
Consider chest CT, Support Engineer Onc consult if biopsy unrevealing.
Thank you for consultation, will follow along with you
Patient History
History of Present Illness
Pt is a 64yo presents with hx HTN, hyperlipidemia, schizophrenia, NIDDM (on Ozempic) obesity, hx GI bleed from esophagitis, iron deficiency anemia, chronic ambulatory dysfunction, impaired cognition/intellectual disability who presented with vaginal
bleeding. In ER 11/19, she also had complaints of nausea, vomiting, abdominal pain, recent bloody emesis, bloody diarrhea and urinary bleeding. Admission labwork significant for Tbili 6.4, Dbili 4.8, and elevations in alk phos and AST/ALT. These
labs were normal in 10/2023. Tumor markers were sent 11/21 showing elevations in CEA at 13.8 and in CA 19-9 at 487. CA 125 and AFP normal. She is chronically anemic with hgb at usual baseline of 10.4 on admission, w/u so far notable for B12>1000,
folate 2.7, ferritin 615, sat 44.
Workup of the vaginal bleeding has included MRI pelvis and abd U/S showing 3.2 cm fibroid and 9-mm endometrium. PAP smear 11/20 showed ASCUS. D&C was performed 11/21/24, path benign. MRI's of abdomen and pelvis also showed scattered lesions within
visualized vertebral bodies and mildly enlarged upper abdominal nodes in portacaval and r/p regions, non-specific. Her LFT's remain elevated.
Currently pt complaining that the heart monitor and hospital gown are uncomfortable. She does not want to put them back on. c/o pain s/p liver biopsy earlier today.
Past-Medical/Surgical History
Past Medical History
Past Medical History: HTN, Hypercholesterolemia, NIDDM, Psychiatric (schizophrenia) and Other (obesity, GI bleed, ENRIQUE, chronic ambulatory dysfunction, impaired cognition/ intellectual disability )
Past Surgical History: Cholecystectomy
Social History
Tobacco: Non-Smoker
Alcohol: None
Drug: None
Living: Shelter
Employment: Disabled
Family History
Family History: Other (mother with colon CA, father with [place])
Patient Medication
�Medication �Instructions �Recorded �Confirmed �Last Taken �Type
losartan 50 mg tablet 50 mg PO DAILY Blood pressure 07/27/17 11/20/24 05/03/18 History
magnesium hydroxide 400 mg/5 mL 30 ml PO DAILYPRN PRN constipation 07/27/17 11/20/24 Unknown History
oral suspension
citalopram 20 mg tablet (Celexa) 40 mg PO DAILY 03/23/18 11/20/24 05/03/18 History
pantoprazole 40 mg tablet,delayed 40 mg PO DAILY ##0 09/08/1111/20/24 05/03/18 Rx
release
ferrous sulfate 325 mg (65 mg 325 mg PO BID Supplement 05/03/18 11/20/24 05/03/18 History
iron) tablet (Feosol)
bisacodyl 10 mg rectal suppository 10 mg DE DAILYPRN PRN constipation 08/07/22 11/20/24 Unknown History
(Dulcolax (bisacodyl)) if MOM ineffective
ipratropium 0.5 mg-albuterol 3 mg 3 ml inhalation R Q4HPRN PRN 08/07/22 11/20/24 Unknown History
(2.5 mg base)/3 mL nebulization cough/SOB
soln
sodium phosphates 19 gram-7 118 ml DE DAILYPRN PRN if dulcolax 08/07/22 11/20/24 Unknown History
gram/118 mL enema (Fleet Enema) supp ineffective
acetaminophen 325 mg tablet 650 mg PO Q6HPRN PRN mild 02/17/23 11/20/24 Unknown History
pain/temp> 100F
loperamide 2 mg tablet 2 mg PO Q6HPRN PRN diarrhea 02/17/23 11/20/24 Unknown History
risperidone 3 mg tablet (Risperdal) 2 mg PO Q12H 02/17/23 11/20/24 Unknown History
melatonin 3 mg tablet 6 mg PO HS 11/20/24 11/20/24 Unknown History
semaglutide 1 mg/dose (4 mg/3 mL) 2 mg SC FR 11/20/24 11/20/24 Unknown History
subcutaneous pen injector (Ozempic)
Active Medications
Generic Name Dose Route Start Last Admin
Trade Name Freq PRN Reason Stop Dose Admin
Bisacodyl 10 mg 11/20/24 05:34
Bisacodyl 10 Mg Rectal Suppository RECTAL 12/18/24 05:33
DAILY PRN
constipation if MOM ineffectiv
Citalopram Hydrobromide 40 mg 11/20/24 08:00 11/26/24 07:51
Citalopram 20 Mg Tablet PO 12/18/24 07:59 40 mg
DAILY DARYA Administration
Ferrous Sulfate 325 mg 11/20/24 08:00 11/26/24 07:51
Ferrous Sulfate 325 Mg Tablet PO 12/18/24 07:59 325 mg
BID DARYA Administration
Heparin Sodium 5,000 units 11/20/24 08:00 11/26/24 07:51
Heparin 5,000 Units/Ml 1 Ml Vial SC 12/18/24 07:59 5,000 units
Q8 DARYA Administration
Loperamide HCl 2 mg 11/20/24 05:34
Loperamide 2 Mg Capsule PO 12/18/24 05:33
Q6HPRN PRN
diarrhea
Losartan Potassium 25 mg 11/24/24 08:00 11/26/24 07:51
Losartan 25 Mg Tablet PO 12/22/24 07:59 25 mg
DAILY DARYA Administration
Magnesium Hydroxide 30 ml 11/20/24 05:34
Milk Of Magnesia 30 Ml Cup PO 12/18/24 05:33
DAILY PRN
constipation
Melatonin 6 mg 11/20/24 22:00 11/25/24 21:04
Melatonin 3 Mg Tablet PO 12/18/24 21:59 6 mg
HS DARYA Administration
Metoclopramide HCl 5 mg 11/25/24 13:00 11/26/24 05:07
Metoclopramide 10 Mg/2 Ml Vial IV 12/23/24 12:59 5 mg
Q8H DARYA Administration
Miconazole Nitrate 0 applic 11/22/24 20:00 11/26/24 07:52
Miconazole Powder Bottle TOPICAL 12/20/24 19:59 1 applic
BID DARYA Administration
Ondansetron HCl 4 mg 11/20/24 05:34 11/26/24 00:26
Ondansetron 4 Mg/2 Ml Vial IV 12/18/24 05:33 4 mg
Q6HPRN PRN Administration
nausea and vomiting
Pantoprazole Sodium 40 mg 11/20/24 08:00 11/26/24 07:51
Pantoprazole 40 Mg Delayed Release Tablet PO 12/18/24 07:59 40 mg
DAILY DARYA Administration
Risperidone 2 mg 11/20/24 08:00 11/26/24 07:52
Risperidone 2 Mg Tablet PO 12/18/24 07:59 2 mg
Q12 DARYA Administration
Sodium Biphosphate/Sodium Phosphate 118 ml 11/20/24 05:34
Fleet Phosphate Enema (Adult) 135 Ml Bottle RECTAL 12/18/24 05:33
DAILY PRN
if dulcolax supp ineffective
Sodium Chloride 0 flush 11/20/24 06:00
Sodium Chloride 0.9% (Flush) Syringe IV 12/18/24 05:59
PER PROTOCOL DARYA
Tamsulosin HCl 0.8 mg 11/23/24 12:00 11/26/24 07:51
Tamsulosin 0.4 Mg Capsule PO 12/21/24 11:59 0.8 mg
DAILY DARYA Administration
Review of Systems
-
Unable to obtain full review of systems at this time due to: Other (Intellectual disability)
Physical Exam
-
Sclera icteric
Morbidly obese, sitting in bed naked
Heart RRR
Lungs clear anteriorly
Exam limited by body habitus
Awake and interactive
Labs
Lab Results
WBC 10.3 10^3/uL (4.8-10.8) 11/25/24 05:30
RBC 3.66 10^6/uL (4.20-5.40) L 11/25/24 05:30
Hgb 9.6 g/dL (12.0-16.0) L 11/25/24 05:30
Hct 29.8 % (37.0-47.0) L 11/25/24 05:30
MCV 81.4 fL (81.0-99.0) 11/25/24 05:30
MCH 26.2 pg (27.0-31.0) L 11/25/24 05:30
MCHC 32.2 g/dL (33.0-37.0) L 11/25/24 05:30
RDW 19.5 % (11.5-14.5) H 11/25/24 05:30
Plt Count 251 10^3/uL (130-400) 11/25/24 05:30
MPV 9.4 fL (7.4-10.4) 11/25/24 05:30
Abs Immat Gran (auto) 0.2 10^3/uL (0-0.05) H 11/19/24 23:17
Absolute Neuts (auto) 9.6 10^3/uL (1.4-6.5) H 11/19/24 23:17
Absolute Lymphs (auto) 1.0 10^3/uL (1.2-3.4) L 11/19/24 23:17
Absolute Monos (auto) 0.6 10^3/uL (0.1-0.6) 11/19/24 23:17
Absolute Eos (auto) 0.3 10^3/uL (0-0.7) 11/19/24 23:17
Absolute Basos (auto) 0.1 10^3/uL (0-0.2) 11/19/24 23:17
Immature Gran % 1.3 % (0-0.5) H 11/19/24 23:17
Neutrophils % 82.2 % (42.2-75.2) H 11/19/24 23:17
Lymphocytes % 8.5 % (20.5-51.1) L 11/19/24 23:17
Monocytes % 4.8 % (1.7-9.3) 11/19/24 23:17
Eosinophils % 2.7 % (0-6) 11/19/24 23:17
Basophils % 0.5 % (0-2) 11/19/24 23:17
Creatinine 0.8 mg/dL (0.6-1.0) 11/25/24 05:30
Vital Signs
Vital Signs
Temp Pulse Resp BP Pulse Ox
97.6 F 88 16 91/50 97
11/26/24 07:19 11/26/24 07:19 11/26/24 07:19 11/26/24 07:19 11/26/24 07:19
--- NOTE | 2024-11-26 11:41 | CM ---
Reviewed the chart notes. Patient for liver biopsy today. CM continues to be available to patient/family and is monitoring medical plan for needs at discharge.
Plan: Discharge back to [facility] when medically stable. No precert required.
Call report to: [phone] ask for supervisor brew house
Fax report to: [phone]
Medical necessity and transport forms on chart.
[2024-11-26 11:58] LABS: Reticulocyte Count 1.3 % (0.4-2.8)
--- NOTE | 2024-11-26 12:34 | W.PN.HOSP.TC ---
Today's Communication/Plan
-
Oncology and Manager In Home Onc consulted
Re-engage GI
Liver Bx
Assessment / Plan
Assessment / Plan
MR a/p
Innumerable scattered small nonenhancing hepatic lesions as described. 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 Less likely differentials include atypical liver metastases, microabscesses, or Caroli
disease. As a conservative measure, recommend follow-up MRI abdomen without and with Eovist contrast in 3-6 months.
Diffuse prominence of the intra- and extra-hepatic biliary ducts, likely within normal limits given patient age and postcholecystectomy state. No discrete biliary strictures or filling defects.
- Radiology addendum: There are scattered lesions within the visualized vertebral bodies, possibly metastases. Additionally there are mildly enlarged upper abdominal lymph nodes in the portacaval and retroperitoneal regions, reactive versus
metastatic. These findings may increase the likelihood that the liver lesions could represent hypoenhancing metastases.
CT a/p
Heterogeneous liver parenchyma with the suggestion of numerous small intraparenchymal liver lesions. Hepatic metastases versus other underlying infiltrative process. This appears to be new compared to the CT abdomen/pelvis from 01/12/2019. The
patient is currently scheduled for an MRI of the abdomen, at which time further evaluation of the liver is recommended.
Bile duct dilatation may be secondary to the previous cholecystectomy. No appreciable choledocholithiasis by CT.
Mild upper retroperitoneal lymphadenopathy, reactive versus metastatic.
Pelvic US
The endometrium measures 9 mm in thickness, which is considered abnormally thickened for a symptomatic postmenopausal patient (greater than 5 mm). Findings could be secondary to endometrial hyperplasia or endometrial carcinoma. Sonographic
evaluation is limited by patient body habitus.

#Vaginal bleeding
-Pelvic US finding as above
-underwent hysteroscopy and D&C on 11/21 -
-Endometrial biopsy report came negative for any malignancy.
-AFP/CA125 wnl . CA19-9 high 487. CEA 13.8 (elevated)
-Gynecology help appreciated
-Consulted Oncology and Manager In Home Onc
-Monitor for any further vaginal bleeding
# Suspected metastatic disease of liver/spine
Hyperbilirubinemia
Elevated ALP
- MRI/CT abdomen pelvis showing nonenhancing hepatic lesions with wide variety of differential as mentioned above MRI abdomen report
- There was also visible bony metastasis
-liver biopsy
- Continue monitoring LFT
- Oncology and Manager In Home Onc consulted
-Re-engage GI if any worth in ERCP
#Hyponatremia
- most likely SIADH
-Mild, monitor
- likely related to malignancy
-Fluid restriction
#Normocytic anemia
- continue monitoring. remains stable 9-10 range
#Hypokalemia
-monitor and replete
#Nausea/vomiting
- abd exam is benign
- Patient remains on Zofran, added Reglan to regimen
Essential hypertension
Schizophrenia
Iron deficiency anemia
Chronic dysfunction/wheelchair-bound
Intellectual disability
Cholecystectomy
DVT PPX - Heparin subq
Full code
Total time spent on today's encounter was 50 minutes which included time spent in counseling the patient/family regarding diagnosis and treatment plan as listed above, goals of care, and symptom management. Case was discussed with nursing staff,
specialists, and care coordinators/case management. All labs and imaging personally reviewed by me. Remainder the time spent in detailed review of previous records, lab data, imaging, and other medical provider documentation.
Anticipated Discharge: Within 24 hours
Subjective/Interval History
-
Date of Service: November 26, 2024
no acute events
Objective Data
-
Vital Signs:
Vital Signs
Temp Pulse Resp BP Pulse Ox
97.6 F 88 16 91/50 97
11/26/24 07:19 11/26/24 07:19 11/26/24 07:19 11/26/24 07:19 11/26/24 07:19
I&O
11/25/24 11/26/24 11/27/24
06:59 06:59 06:59
Intake Total 1440 / 1440 1800 / 1800
Balance 1440 / 1440 1800 / 1800
Review of Systems
-
History Source: Patient
All other systems: Not reviewed unless documented
Physical Exam
-
HEENT: Negative Oxygen
GI: Soft, Nontender and Nondistended
Musculoskeletal: No Edema
Neuro: Awake, Alert, Oriented, No Motor Deficits and Nonfocal/Grossly Intact
Psych: Calm
Data Reviewed
-
MRI: Report Reviewed by me
Labs: Labs Reviewed by me
--- NOTE | 2024-11-26 12:46 | W.PN.GI.CBS2 ---
Addendum entered and electronically signed by Vaishali Camara DO 11/26/24 18:38:
Patient seen and examined independently of DON. I agree with her note with my additions below
I was called back by oncology to see the patient to determine if any further imaging was necessary since her liver enzymes have not improved
I reviewed her imaging and labs and she does not have a bile duct obstruction based on her recent MRCP. This looks like multiple lesions throughout the liver with either infiltrative malignancy or metastatic cancer especially in the setting of an
alkaline phosphatase that high. Her pancreas appears normal on imaging but somewhat limited based on her obesity. The absolute best test would be a liver biopsy of one of the liver lesions which occurred today.
Today she is complaining of abdominal pain after the procedure and has some tenderness to palpation. Her vital signs are back to her baseline which still is mildly hypotensive but she did get as low as 70/43. Currently 95/57. A CT scan was done
post to make sure there was no hematoma which was negative.
Overall no role for ERCP with no biliary ductal dilatation at this point. An EUS to FNA one of the lesions is not necessary especially since now we have liver biopsy. The lymph nodes are pretty small and may not yield a good enough tissue. Await
liver biopsy results
Call us back if we can help.
If her hgb drops would get a CTangio to see if there's an active bleed.
Addendum entered and electronically signed by DON Bosch 11/26/24 17:10:
Pt was seen at 1700 post biopsy
-reviewed IR notes -- some hypotension post biopsy with pain. bedside US with perihepatic hematoma. Pt also complete follow up CT post procedure with report as noted:
5/ CT a/p
1. No perihepatic or intraperitoneal hemorrhage following liver biopsy.
2. Multiple liver metastases were better demonstrated on recent prior MRI.
3. Diffuse osseous metastasis is also suspected.
cont to trend hbg with some slow drop hbg 8.8 after biopsy completed.
.
Original Note:
Today's Communication / Plan
-
asked to see again as continued rise of LFT's and Ca19-9 now back and noted with elevation to 487
MRI with MRCP completed last week with stable pancreas and prominent duct dilatation post mariely
alk phos likely elevated with concern for bony mets
bilirubin ? infiltrative process with ? liver mets
s/p liver biopsy today - await results
Will review case with Dr. Camara and any role for EUS
await MAT PUNCHER input for review of path
per MAT PUNCHER vaginal bleeding should taper over next 2 weeks -- if bleeding persists per MAT PUNCHER consider MAT PUNCHER/onc eval
appreciate oncology input
support given
Assessment / Plan
-
Pt is a 64yo presents with hx HTN, hyperlipidemia, schizophrenia, NIDDM (on Ozempic) obesity, GI bleed- CGE with EGD 2018 with grade D esophagitis, ENRIQUE, chronic ambulatory dysfunction, impaired cognition/ intellectual disability , mariely presents
with onset of vaginal bleeding. On admission multiple issue with nausea, vomiting, abdominal pain, recent bloody emesis, blood diarrhea and urinary bleeding. She was noted with elevated LFT's with marked elevated alk phos, hypoalbuminemia. She
has completed several imaging studies as noted but proceeded with MAT PUNCHER work up for vaginal bleeding with abnormal epithelial cell and follow up D+C with no Atypia. tumor markers with CEA 13.8, AFP 1.46, CA 19-9 487, CA 125 6. family hx mother
with colon CA. She is also noted with persistent elevated LFT's.
11/20/24 MR abdomen addendum:
There are scattered lesions within the visualized vertebral bodies, possibly metastases. Additionally there are mildly enlarged upper abdominal lymph nodes in the portacaval and retroperitoneal regions, reactive versus metastatic. These findings may
increase the likelihood that the liver lesions could represent hypoenhancing metastases.
11/20/24 MRI initial reading
Innumerable scattered small nonenhancing hepatic lesions as described. 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 Less likely differentials include atypical liver metastases, microabscesses, or Caroli
disease. As a conservative measure, recommend follow-up MRI abdomen without and with Eovist contrast in 3-6 months.
Diffuse prominence of the intra- and extra-hepatic biliary ducts, likely within normal limits given patient age and postcholecystectomy state. No discrete biliary strictures or filling defects.
11/21/24 CT Abd/pelvis W Iv Cont
Heterogeneous liver parenchyma with the suggestion of numerous small intraparenchymal liver lesions. Hepatic metastases versus other underlying infiltrative process. This appears to be new compared to the CT abdomen/pelvis from 01/12/2019. The
patient is currently scheduled for an MRI of the abdomen, at which time further evaluation of the liver is recommended.
Bile duct dilatation may be secondary to the previous cholecystectomy. No appreciable choledocholithiasis by CT.
Mild upper retroperitoneal lymphadenopathy, reactive versus metastatic.
11/21/24 MR pelvis
The endometrium measures 9 mm in thickness, similar compared to the recent pelvic ultrasound.
Multiple uterine fibroids, at least two of which have submucosal components.
Numerous lesions throughout the imaged osseous structures including the lumbar spine, sacrum, pelvis, and bilateral proximal femurs are highly suspicious for osseous metastatic disease.
11/20/24 US pelvis
The endometrium measures 9 mm in thickness, which is considered abnormally thickened for a symptomatic postmenopausal patient (greater than 5 mm). Findings could be secondary to endometrial hyperplasia or endometrial carcinoma. Sonographic
evaluation is limited by patient body habitus.
-increased LFT's
-elevated CA19-9
-mild CEA abnormality
-imaging with concern for mets spine, sacrum, pelvis, femur and occult process
-nausea/vomiting/abdominal pain
-vaginal bleeding- US with endometrial thickening with persistent bleeding post procedure
-intra and extrahepatic biliary dilation post mariely vs other
-elevated CEA
-bloody emesis
-blood diarrhea on admission
-constipation
-mild anemia
-leukocytosis
-hyponatremia
-hypokalemia
other medical problems:
-HTN
-hyperlipidemia
-schizophrenia
-NIDDM
-obesity
PLAN:
asked to see again as continued rise of LFT's and Ca19-9 now back and noted with elevation to 487
MRI with MRCP completed last week with stable pancreas and prominent duct dilatation post mariely
alk phos likely elevated with concern for bony mets
bilirubin ? infiltrative process with ? liver mets
s/p liver biopsy today - await results
Will review case with Dr. Camara and any role for EUS
await MAT PUNCHER input for review of path
per MAT PUNCHER vaginal bleeding should taper over next 2 weeks -- if bleeding persists per MAT PUNCHER consider MAT PUNCHER/onc eval
appreciate oncology input
support given
Subjective
Subjective
Date of Service: November 26, 2024
asked to see again with elevated LFT's-- some complaint of abdominal pain on returning from liver biopsy
Objective
Data Reviewed
Laboratory Data:
Laboratory Results
PT 16.8 Sec (11.4-14.6) H 11/20/24 03:40
INR 1.33 11/20/24 03:40
Magnesium 2.2 mg/dl (1.6-2.3) 11/20/24 11:04
Total Bilirubin 4.8 mg/dl (0.2-1.3) H 11/25/24 05:30
AST 220 U/L (14-36) H 11/25/24 05:30
ALT 103 U/L (0-35) H 11/25/24 05:30
Alkaline Phosphatase 2184 U/L (38-126) H 11/25/24 05:30
Lipase 41 U/L (23-300) 11/19/24 23:17
Vital Signs and I&O:
Vital Signs
Temp Pulse Resp BP Pulse Ox
97.6 F 88 16 91/50 97
11/26/24 07:19 11/26/24 07:19 11/26/24 07:19 11/26/24 07:19 11/26/24 07:19
I&O
11/25/24 11/26/24 11/27/24
06:59 06:59 06:59
Intake Total 1440 / 1440 1800 / 1800
Balance 1440 / 1440 1800 / 1800
Physical Exam
Physical Exam
HEENT: Other (minimal scleral icteric )
Cardiology: Normal Sinus Rhythm
Pulmonary: Clear
GI: Soft, Non Distended and Tender (minimal upper abdomen pain around biopsy site )
Rectal: Other (noted vaginal bleeding on underpad)
Extremities: No Edema
Neuro: Non Focal
[2024-11-26 12:51] LABS: Erythrocyte Sed Rate 72 mm/hour (0-20)
[2024-11-26] MEDS: REGLAN IV (13:09)
[2024-11-26 13:13] LABS: ALT (SGPT) 94 U/L (0-35); AST (SGOT) 186 U/L (14-36); Albumin 2.4 g/dl (3.5-5.0); Blood Urea Nitrogen 16 mg/dl (7-17); Calcium 8.5 mg/dl (8.4-10.2); Carbon Dioxide 29 mmol/L (22-30); Chloride 95 mmol/L (98-107); Estimated Creatinine Clearance 107 ml/min; Glucose 117 mg/dl (70-99); Potassium 3.8 mmol/L (3.5-5.1); Sodium 130 mmol/L (135-145); Total Protein 5.9 g/dl (6.3-8.2); eGFR > 60.00
[2024-11-26 13:28] LABS: Alkaline Phosphatase 2188 U/L (38-126)
--- NOTE | 2024-11-26 14:10 | PTCARENOTE ---
patient is s/p liver biopsy c/o pain to right lower abdomen 8/10 with low bp 70/40s. Dr. campo notified. bedside US completed no bleeding noted on US. new order rec'd for stat ct scan abd/pelvis.
[2024-11-26] MEDS: LR 1000 IV (14:37)
--- NOTE | 2024-11-26 14:37 | PTCARENOTE ---
Dr. smith made aware of low bp and new pain post biopsy. new orders obtained.
[2024-11-26 14:48] LABS: Hematocrit 27.4 % (37.0-47.0); Hemoglobin 9.2 g/dL (12.0-16.0); Mean Corp Hgb Conc. 33.6 g/dL (33.0-37.0); Mean Corpuscular Hgb 27.6 pg (27.0-31.0); Mean Corpuscular Volume 82.3 fL (81.0-99.0); Mean Platelet Volume 9.7 fL (7.4-10.4); Platelet Count 280 10^3/uL (130-400); Red Blood Cell Count 3.33 10^6/uL (4.20-5.40); Red Cell Dist. Width 19.7 % (11.5-14.5); White Blood Cell Count 10.9 10^3/uL (4.8-10.8)
[2024-11-26 15:04] LABS: Lactic Acid 2.1 mmol/L (0.7-2.0)
--- NOTE | 2024-11-26 15:07 | W.PN.UPDATE ---
Update Note
Progress Note Update
Liver biopsy was performed, patient tolerated procedure well.
Approx 20 minutes after procedure, she began to complain of RUQ pain. Her BP from from 90's systolic to 70's. HR in the 70's.
Bedside US showed no perihepatic hematoma, however her BP continued to be low despite IV fluids. CT a/p performed, which showed no perihepatic hematoma, and no intraperitoneal blood. There was a small amount of contrast extravasation from left arm
IV.
BP continues to be low, most recently in the 80's, unclear etiology. Patient is mentating normally.
[2024-11-26 15:09] LABS: Hematocrit 25.9 % (37.0-47.0); Hemoglobin 8.8 g/dL (12.0-16.0); Mean Corpuscular Hgb 27.2 pg (27.0-31.0); Mean Corpuscular Volume 80.2 fL (81.0-99.0); Mean Platelet Volume 9.5 fL (7.4-10.4); Platelet Count 246 10^3/uL (130-400); Red Blood Cell Count 3.23 10^6/uL (4.20-5.40); Red Cell Dist. Width 19.6 % (11.5-14.5); White Blood Cell Count 9.7 10^3/uL (4.8-10.8)
--- NOTE | 2024-11-26 15:30 | PTCARENOTE ---
ct completed. no bleeding per Dr. campo. per Dr. Goodwin, patient okay to return to 2133 upgraded to tele. bp 85/51 (62). patient transferred to 2133 via [facility] RN and transport.
--- NOTE | 2024-11-26 17:02 | W.CON.GYNONC ---
Chief Complaint
-
N/A
History of Present Illness
64yo presents with hx HTN, hyperlipidemia, schizophrenia, NIDDM (on Ozempic) obesity, hx GI bleed from esophagitis, iron deficiency anemia, chronic ambulatory dysfunction, impaired cognition/intellectual disability who presented with vaginal
bleeding. In ER 11/19, she also had complaints of nausea, vomiting, abdominal pain, recent bloody emesis, bloody diarrhea and urinary bleeding. Admission labwork significant for Tbili 6.4, Dbili 4.8, and elevations in alk phos and AST/ALT. These
labs were normal in 10/2023. Tumor markers were sent 11/21 showing elevations in CEA at 13.8 and in CA 19-9 at 487. CA 125 and AFP normal. She is chronically anemia with hgb at usual baseline of 10.4 on admission, w/u so far notable for B12>1000,
folate 2.7, ferritin 615, sat 44.
Workup of the vaginal bleeding has included MRI pelvis and abd U/S showing 3.2 cm fibroid and 9-mm endometrium. PAP smear 11/20 showed ASCUS. D&C was performed 11/21/24, path benign
A. Endometrial curettings:
Fragments of benign endometrial polyp and disordered weakly proliferative endometrium
in a background of abundant blood clot.
No evidence of atypia.
B. Endocervical curettings:
Fragments of benign squamous epithelium, lower uterine segment endometrium and
blood clot.
No evidence of atypia.
MRI's of abdomen and pelvis also showed scattered lesions within visualized vertebral bodies and mildly enlarged upper abdominal nodes in portacaval and r/p regions, non-specific. Her LFT's remain elevated.
She admits to possible colonoscopy years ago at [facility]. Her mother had colon cancer.
Past-Medical/Surgical History
Past Medical History
Past Medical History: HTN, Hypercholesterolemia, NIDDM, Psychiatric (schizophrenia) and Other (obesity, GI bleed, ENRIQUE, chronic ambulatory dysfunction, impaired cognition/ intellectual disability )
Past Surgical History: Cholecystectomy
Social History
Tobacco: Non-Smoker
Alcohol: None
Drug: None
Living: Retirement
Employment: Disabled
Family History
Family History: Other (mother with colon CA, father with OR)
Patient Medication
�Medication �Instructions �Recorded �Confirmed �Last Taken �Type
losartan 50 mg tablet 50 mg PO DAILY Blood pressure 07/27/17 11/20/24 05/03/18 History
magnesium hydroxide 400 mg/5 mL 30 ml PO DAILYPRN PRN constipation 07/27/17 11/20/24 Unknown History
oral suspension
citalopram 20 mg tablet (Celexa) 40 mg PO DAILY 03/23/18 11/20/24 05/03/18 History
pantoprazole 40 mg tablet,delayed 40 mg PO DAILY ##0 03/25/18 11/20/24 05/03/18 Rx
release
ferrous sulfate 325 mg (65 mg 325 mg PO BID Supplement 05/03/18 11/20/24 05/03/18 History
iron) tablet (Feosol)
bisacodyl 10 mg rectal suppository 10 mg MT DAILYPRN PRN constipation 08/07/22 11/20/24 Unknown History
(Dulcolax (bisacodyl)) if MOM ineffective
ipratropium 0.5 mg-albuterol 3 mg 3 ml inhalation R Q4HPRN PRN 08/07/22 11/20/24 Unknown History
(2.5 mg base)/3 mL nebulization cough/SOB
soln
sodium phosphates 19 gram-7 118 ml MT DAILYPRN PRN if dulcolax 08/07/22 11/20/24 Unknown History
gram/118 mL enema (Fleet Enema) supp ineffective
acetaminophen 325 mg tablet 650 mg PO Q6HPRN PRN mild 02/17/23 11/20/24 Unknown History
pain/temp> 100F
loperamide 2 mg tablet 2 mg PO Q6HPRN PRN diarrhea 02/17/23 11/20/24 Unknown History
risperidone 3 mg tablet (Risperdal) 2 mg PO Q12H 02/17/23 11/20/24 Unknown History
melatonin 3 mg tablet 6 mg PO HS 11/20/24 11/20/24 Unknown History
semaglutide 1 mg/dose (4 mg/3 mL) 2 mg SC FR 11/20/24 11/20/24 Unknown History
subcutaneous pen injector (Ozempic)
Medical History
Allergies
Allergies reflect when allergies were last updated in [employer].
chlorpromazine [From Thorazine] Allergy (Verified 11/19/24 22:50)
Unknown
haloperidol [From Haldol] Allergy (Verified 11/19/24 22:50)
Unknown
tobramycin [From Tobrex] Allergy (Verified 11/19/24 22:50)
Unknown
Physical Exam
Vital Signs / I&O
Vitals
Temp Pulse Resp BP Pulse Ox
98.1 F 75 15 95/57 95
11/26/24 13:45 11/26/24 17:01 11/26/24 15:10 11/26/24 17:01 11/26/24 15:20
I&O
11/24/24 11/25/24 11/26/24 11/27/24
06:59 06:59 06:59 06:59
Intake Total 1000 / 1000 1440 / 1440 1800 / 1800
Balance 1000 / 1000 1440 / 1440 1800 / 1800
Physical Exam
Patient was not cooperative and hence pelvic exam and remainder of the exam was omitted
Results
-
11/26/24 14:44
11/26/24 11:46
Magnetic Resonance Imaging Rpt
SignedOrder #:[id number]
Exams: MR Abdomen W/o & W Contrast
~~REPORT ADDENDUM~~
There are scattered lesions within the visualized vertebral bodies, possibly metastases. Additionally there are mildly enlarged upper abdominal lymph nodes in the portacaval and retroperitoneal regions, reactive versus metastatic. These findings may
increase the likelihood that the liver lesions could represent hypoenhancing metastases.
Results discussed with Dr. Aly on 11/20/2024 at 4:17 PM.
Electronically signed by Fredy Cavanaugh, 11/20/2024 4:19 PM
Addendum Dictated by: Fredy Cavanaugh MD
Addendum Dictated Date & Time: 11/20/24 1616
Addendum Signed by: Fredy Cavanaugh MD
Addendum Signed Date & Time: 11/20/24 1619
MR Abdomen W/o  W Contrast: 11/20/2024 7:49 AM
INDICATION: 64 years old Female. with MRCP for jaundice/increased LFTs.
COMPARISON: CT abdomen/pelvis 01/12/2019 and 11/20/2024.
TECHNIQUE: Multiplanar multisequence MR imaging of the abdomen was performed both before and after the intravenous administration of gadolinium.
FINDINGS:
LUNG BASES: Unremarkable.
ABDOMEN:
LIVER: Normal morphology. No significant difference of hepatic signal intensity between in and out of phase images. There are innumerable scattered small T1 hypointense T2 mildly hyperintense nonenhancing rounded lesions throughout both hepatic
lobes. The lesions demonstrate high signal on diffusion weighted sequence. No obvious central or peripheral enhancement of any of the lesions.
BILE DUCTS: Mild intrahepatic and prominent extrahepatic biliary ductal dilatation (measuring up to 1.8 cm with smooth tapering distally), not unexpected for postcholecystectomy status.
GALLBLADDER: Absent.
PANCREAS: Unremarkable. Normal caliber pancreatic duct.
SPLEEN: Within normal limits.
ADRENAL GLANDS: Unremarkable.
KIDNEYS: Small simple and proteinaceous/hemorrhagic bilateral renal cysts. No hydronephrosis.
BOWEL: Normal caliber.
PERITONEUM: No ascites or free air. No fluid collection.
VASCULATURE: No abdominal aortic aneurysm. Major abdominal veins are patent.
RETROPERITONEUM: Within normal limits.
LYMPH NODES: Within normal limits.
ABDOMINAL WALL: Unremarkable.
MUSCULOSKELETAL: No suspicious osseous abnormality.
IMPRESSION:
Innumerable scattered small nonenhancing hepatic lesions as described. 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 Less likely differentials include atypical liver metastases, microabscesses, or Caroli
disease. As a conservative measure, recommend follow-up MRI abdomen without and with Eovist contrast in 3-6 months.
Diffuse prominence of the intra- and extra-hepatic biliary ducts, likely within normal limits given patient age and postcholecystectomy state. No discrete biliary strictures or filling defects.
Electronically signed by Fredy Cavanaugh, 11/20/2024 9:18 AM
\\Magnetic Resonance Imaging Rpt
SignedOrder #:[id number]
Exams: MR Pelvis W/o & With Contrast
CPT: [id number]
PROCEDURE: MR Pelvis W/o  With Contrast
CLINICAL INDICATION: Vaginal bleeding.
TECHNIQUE: An MRI examination of the pelvis was performed with and without intravenous contrast on a 3 Ella magnet. Sagittal T2 fat-suppressed, axial T1, axial T1 fat-suppressed, axial T2 fat-suppressed, coronal T2 fat-suppressed, and coronal T2
weighted imaging sequences were obtained prior to the administration of intravenous contrast. Following the intravenous administration of 30 mL Clariscan gadolinium contrast material, axial T1 gradient echo images were obtained during various phases
of enhancement.
COMPARISON: MRI abdomen 11/20/2024. Pelvic ultrasound 11/20/2024.
FINDINGS:
The uterus is anteverted and measures 8.9 x 6.3 x 7.0 cm. The uterine myometrium is heterogeneous and contains at least 6 fibroids. Fibroid show hypointense T2 signal, isointense T1 signal and hypoenhancement to isointense enhancement relative to
uterine parenchyma. The largest is a 3.4 cm left lateral subserosal fibroid. A 2.2 cm fibroid in the anterior lower uterine segment has a submucosal component. A 2.5 cm fibroid in the right anterior uterine fundus has a submucosal component. The
remainder of the fibroids appear to be predominantly intramural or subserosal. The endometrium measures 9 mm in thickness. The cervix is unremarkable.
The bilateral ovaries are suboptimally visualized and are likely atrophic. No adnexal mass.
The urinary bladder is unremarkable.
Trace pelvic free fluid.
Numerous hypointense T1, hyperintense T2, and enhancing lesions throughout the imaged osseous structures concerning for osseous metastatic disease with involvement of the lumbar spine, sacrum, pelvis, and bilateral proximal femurs.
IMPRESSION:
The endometrium measures 9 mm in thickness, similar compared to the recent pelvic ultrasound.
Multiple uterine fibroids, at least two of which have submucosal components.
Numerous lesions throughout the imaged osseous structures including the lumbar spine, sacrum, pelvis, and bilateral proximal femurs are highly suspicious for osseous metastatic disease.
Electronically signed by Elba Ching, 11/21/2024 8:26 AM
Diagnostic Imaging Report
SignedOrder #:[id number]
Exams: CT Abd/pelvis W Iv Cont
PROCEDURES: CT Abd/pelvis W Iv Cont
CLINICAL INDICATION: Abdominal pain.
TECHNIQUE: A CT examination of the abdomen and pelvis was performed following the administration of nonionic intravenous contrast. Oral contrast was not administered. Coronal and sagittal reformatted images were obtained. Automatic exposure control
radiation dose reduction technology was utilized.
COMPARISON: CT abdomen/pelvis 01/12/2019.
FINDINGS:
CHEST: Respiratory motion artifact. Mild bilateral interstitial opacities. Mild coronary artery calcifications.
ABDOMEN:
Surgically absent gallbladder. The common bile duct measures 1.4 cm in diameter. Mild intrahepatic ductal dilatation. Heterogeneous liver parenchyma with the suggestion of numerous small intraparenchymal hypoattenuating liver lesions. The liver is
enlarged and measures 22.8 cm in length. The pancreas, spleen, bilateral adrenal glands, and kidneys are unremarkable other than a small left lower pole renal cyst. No hydronephrosis.
The abdominal aorta is normal in caliber and contains mild calcified atherosclerosis.
Borderline prominent upper retroperitoneal lymph nodes, nonspecific.
Small fat-containing umbilical hernia.
The appendix is within limits. No bowel wall thickening, obstruction, or inflammation. Colonic diverticulosis, without evidence for acute diverticulitis. No extraluminal free air, fluid collection, or ascites.
PELVIS: The urinary bladder is unremarkable. Fibroid uterus. 3.2 cm left anterior subserosal uterine fibroid.
SKELETON: Chronic advanced degenerative changes of the spine. Degenerative findings also involve the bilateral sacroiliac joints, hips, and symphysis pubis.
IMPRESSION:
Heterogeneous liver parenchyma with the suggestion of numerous small intraparenchymal liver lesions. Hepatic metastases versus other underlying infiltrative process. This appears to be new compared to the CT abdomen/pelvis from 01/12/2019. The
patient is currently scheduled for an MRI of the abdomen, at which time further evaluation of the liver is recommended.
Bile duct dilatation may be secondary to the previous cholecystectomy. No appreciable choledocholithiasis by CT.
Mild upper retroperitoneal lymphadenopathy, reactive versus metastatic.
Preliminary report provided by [employer].
Electronically signed by Elba Ching, 11/20/2024 9:27 AM
[employer] Dose Report: Up-to-date CT equipment and radiation dose reduction techniques were employed. CTDIvol: 31.2 mGy. DLP: 3856 mGy-cm.
Dictated By: Chrissy Ching DO
Dictated Date & Time: 11/20/24 0900
Impression / Plan
-
I note that the patient has had postmenopausal bleeding, recent D&C results indicates presence of benign endometrial polyps which is reassuring
I will review her MRI of abdomen and pelvis as well as additional CT scan imaging.
I recognize that the patient has had biopsy of liver performed just earlier today and she is complaining about pain at the site of the biopsy
Once these are fully reviewed I will update my note tomorrow and complete her examination.
Anselmo Deal
[facility]
[phone]
--- NOTE | 2024-11-26 19:00 | W.PN.OBG.DWH ---
Today's Communication / Plan
-
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
Monitoring for continued bleeding
Awaiting liver biopsy results.
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
Assessment/Plan
-
Impression:
1. Postmenopausal bleeding-surgical pathology demonstrated fragments of benign endometrial polyp, disordered endometrium without atypia.
- Pap smear: ASCUS, atypical endometrial cells
- Polyp can explain abnormal bleeding. Hysteroscopic visualization was difficult due to blood and clot in the uterus at the time of her surgery. There was not a lot of endometrial tissue able to be removed with curettage.
- Ovaries were not seen on pelvic ultrasound or CT.
2. CT findings suggest liver metastasis; MRI pelvis mentions bony mets
-Awaiting liver biopsy results.
Discussed case with Dr. Deal, who incidentally was already consulted.
Will await liver bx.
If patient continues to have vaginal bleeding, she may need hysterectomy for definitive diagnosis and management.
Reviewed plan with Ml.
Time 15 min. including face to face time, review of CT imaging results, documentation.
Subjective Data
-
Late entry note.
Patient seen approximately 5 PM today.
Florence reports she still has some vaginal bleeding. Denies any dizziness or lightheadedness.
Had liver biopsy performed today.
Reports intermittent nausea. Complains of abdominal pain.
Objective Data
-
Laboratory Results
11/26/24 14:44
11/26/24 11:46
Vital Signs
Temp Pulse Resp BP Pulse Ox
97.4 F 75 16 95/57 95
11/26/24 15:50 11/26/24 17:01 11/26/24 15:50 11/26/24 17:01 11/26/24 15:50
Appearance: Sitting in bed, appears comfortable. Conversing easily. No acute distress.
Heart: Regular rate
Lungs: Normal respiratory rate, breathing easily without effort
Abdomen: Soft, nondistended, no guarding or rebound, positive vague tenderness reported diffusely
Extremities: No calf pain
[2024-11-26] MEDS: MELATONIN 6 MG PO (20:51)
[2024-11-27] MEDS: HEPARIN 5000 UNITS SC ×2 (00:11→23:43)
[2024-11-27] MEDS: REGLAN IV (05:02)
[2024-11-27] MEDS: REGLAN 5 MG IV ×3 (06:46→20:16)
[2024-11-27 07:37] LABS: Hematocrit 24.6 % (37.0-47.0); Hemoglobin 8.5 g/dL (12.0-16.0); Mean Corp Hgb Conc. 34.6 g/dL (33.0-37.0); Mean Corpuscular Hgb 26.9 pg (27.0-31.0); Mean Corpuscular Volume 77.8 fL (81.0-99.0); Mean Platelet Volume 9.4 fL (7.4-10.4); Platelet Count 230 10^3/uL (130-400); Red Blood Cell Count 3.16 10^6/uL (4.20-5.40); Red Cell Dist. Width 19.1 % (11.5-14.5); White Blood Cell Count 11.6 10^3/uL (4.8-10.8)
[2024-11-27 07:40] VITALS: BP 95/52
[2024-11-27 07:53] LABS: ALT (SGPT) 89 U/L (0-35); AST (SGOT) 161 U/L (14-36); Albumin 2.3 g/dl (3.5-5.0); Blood Urea Nitrogen 16 mg/dl (7-17); Calcium 8.2 mg/dl (8.4-10.2); Carbon Dioxide 27 mmol/L (22-30); Chloride 96 mmol/L (98-107); Estimated Creatinine Clearance 122 ml/min; Glucose 94 mg/dl (70-99); Sodium 129 mmol/L (135-145); Total Bilirubin 5.7 mg/dl (0.2-1.3); Total Protein 5.7 g/dl (6.3-8.2); eGFR > 60.00
[2024-11-27 08:17] LABS: Alkaline Phosphatase 1965 U/L (38-126)
[2024-11-27] MEDS: RISPERDAL 2 MG PO ×2 (09:38→20:15)
[2024-11-27] MEDS: PROTONIX 40 MG PO (09:38)
[2024-11-27] MEDS: FLOMAX 0.8 MG PO (09:38)
[2024-11-27] MEDS: FEOSOL 325 MG PO ×2 (09:38→20:15)
[2024-11-27] MEDS: HEPARIN SC ×2 (09:38→16:43)
[2024-11-27] MEDS: CELEXA 40 MG PO (09:38)
[2024-11-27] MEDS: COZAAR PO (09:41)
[2024-11-27] MEDS: DESENEX/MITRAZOL/ZEASORB 1 APPLIC TOPICAL ×2 (09:51→20:15)
--- NOTE | 2024-11-27 10:55 | W.CON.GYNONC ---
Consultation
-
Date/Time Consultation Performed: 11/27/2024
Chief Complaint
-
Vaginal bleeding
History of Present Illness
64-year-old female with past medical history of schizophrenia, intellectual disability, hypertension, type 2 diabetes, hyperlipidemia, morbid obesity, iron deficiency anemia, history of alcohol abuse, hx GI bleed- with EGD 2018 grade D esophagitis
noted presented to the ED for vaginal bleeding. For 6 weeks prior patient was complaining of N/V and abdominal pain. She endorsed fever, chills, blood in her stool, spitting up blood however stated her vomit color was clear, and blood in the
urine. [facility] initially thought that she was fine with the complaints of nausea however later she started to have vaginal bleeding for 2 days and they sent her to the ED. She has never been sexually active and does not recall the date of her
last period.
On admission, WBC noted to be 11.7, hemoglobin 10.4, NA 138, ferritin 615, bili 6.4, direct bili 4.8, AST 179, ALT 72, alk phos 1994, lipase 41, INR 1.33. ED noted blood in the vaginal area. No rectal bleeding noted. Ultrasound on 11/20 revealed
endometrial thickening [address] revealed numerous liver lesions and uterine fibroid 3.2 cm subserosal and recommended follow-up MRI for better visualization of hepatic lesions. MRI on 11/20 revealed a hepatic lesion suspicious biliary hamartomas
versus metastasis, microabscesses or caroli disease. Scattered lesions within the vertebral bodies were also recognized along with enlarged upper abdominal lymph nodes in the portocaval and retroperitoneal regions suspicious for metastasis.
Patient was admitted for workup of abnormal liver enzymes and vaginal bleeding.
On 11/20, Pap smear revealed atypical squamous cells of undetermined significance, atypical endometrial cells presents in acute inflammation. 11/21/2024 endometrial biopsy revealed fragments of a benign endometrial polyp with no evidence of atypia.
A liver biopsy was taken on 11/26/2024 which is still pending.
Medical History
Past Medical History
Past Medical History: Reports Other (Schizophrenia, intellectual disability, hypertension, type 2 diabetes mellitus, hyperlipidemia, morbid obesity, ENRIQUE, history of alcohol abuse, history of GI bleed)
Past Surgical History: Reports Other (Cholecystectomy)
Social History
Tobacco: Non-smoker
Alcohol: Former
Living: [facility]
Family History
Family History: Other (Mother colon Ca, Father AR)
Allergies
Allergies reflect when allergies were last updated in [facility].
chlorpromazine [From Thorazine] Allergy (Verified 11/19/24 22:50)
Unknown
haloperidol [From Haldol] Allergy (Verified 11/19/24 22:50)
Unknown
tobramycin [From Tobrex] Allergy (Verified 11/19/24 22:50)
Unknown
Review of Systems
-
Unable to obtain full social history at this time due to: Other (Intellectual disability)
EENT: Reports No Symptoms
Respiratory: Reports No Symptoms
Cardiac: Reports No Symptoms
Abdomen/GI: Reports Abdominal Pain, Nausea and Constipated
: Reports No Symptoms
Neurological: Reports No Symptoms
Physical Exam
Vital Signs / I&O
Vitals
Temp Pulse Resp BP Pulse Ox
97.7 F 83 18 95/52 94
11/27/24 07:40 11/27/24 07:40 11/27/24 07:40 11/27/24 07:40 11/27/24 07:40
I&O
11/25/24 11/26/24 11/27/24 11/28/24
06:59 06:59 06:59 06:59
Intake Total 1440 / 1440 1800 / 1800 1080 / 1080
Balance 1440 / 1440 1800 / 1800 1080 / 1080
Physical Exam
No acute distress
States abdominal tenderness diffusely, soft, no guarding or rigidity
Morbid obesity, difficult to evaluate for distention or tympany
Decrease blood on padding per nursing
General: No Apparent Distress and Comfortable
Respiratory: Non Labored Respirations
Cardiac: Regular Rhythm
Skin: Warm and Dry
Neuro: AO x 3
Psych: Calm
Results
-
11/27/24 07:17
11/27/24 07:17
Impression / Plan
-
64-year-old female with past medical history of schizophrenia, intellectual disability, hypertension, type 2 diabetes, hyperlipidemia, morbid obesity, iron deficiency anemia, history of alcohol abuse, hx GI bleed- with EGD 2018 grade D esophagitis
noted presented to the ED for vaginal bleeding. Endometrial thickening 9 mm with negative endometrial biopsy, multiple liver and osseous lesions suspicious for metastasis with elevated CA19-9 and CEA. Liver biopsy pending.
AFVSS, BP a bit soft this am 95/52
Pt states ab tender with 10/10 pain, but when pressing down on her abdomen while she was discussing something else she did not appear in pain. Difficult to evaluate given intellectual disability.
WBC 11.6 uptrending from 9.7 but likely reactive from procedure although does have (+) UA and culture for klebsiella which could be contributing (thought to be asymptomatic bacteruria), hg 8.5, LA 2.1 elevated, Na 129, Cr 0.7
AST 161, ALT 89, Alk phos 1965 downtrending from 2188
AFP, CA125 within normal limits, CA 19�9 elevated at 487, CEA elevated at 13.8
Cause of postmenopausal bleeding currently unclear. Endometrial biopsy revealed benign endometrial polyp which could be underlying cause of bleeding, however given CA 19�9 elevation at 487 and CEA 13.8 with multiple lesions in the liver and bones
suspicious for metastasis. Gynecologic origin versus occult biliary, pancreatic cancer or perhaps colon in the differentials. No overt pancreatic mass or abnormal duct dilation is seen. Ovaries have been unable to be identified on imaging thus far.
Pap smear and endometrial biopsy were negative for cancerous etiology. Liver biopsy is pending.
Plan:
Etiology of bleeding is most likely due to currently identified endometrial polyps and it is reassuring to see that she does not have endometrial hyperplasia or carcinoma. The thickening seen on the preoperative imaging related to endometrium can
be explained by the removed polyps.
I remain concerned about elevated CEA at 13.8 as well as elevated alk phos in 1999's.
I recognize liver biopsy has been performed and we are awaiting the results.
It is reassuring to see a normal CA125 level as the current ratio of CA125 to CEA suggest presence of a nongynecologic malignancy
-- Await liver biopsy results
-- In the meantime, medical management per primary team
-- Monitor bleeding - seems to be down today from nursing. If continues may need hysterectomy for definitive diagnosis and management
Patient remains concerned about her vaginal bleeding and would like to see it come to an end prior to transfer to residential facility.
Obviously the treatment of the lesions in the liver and presumably in the bone will be dictated by the medical oncology team.
Of note she may benefit from a nuclear medicine bone scan to see whether she has any additional bony lesions present.
Anselmo Deal MD
[facility]
[phone].
--- NOTE | 2024-11-27 11:39 | CM ---
Reviewed the chart notes. Patient had liver biopsy yesterday. Results pending. CM continues to be available to patient/family and is monitoring medical plan for needs at discharge.
Plan: Discharge back to [facility] when medically stable. No precert required.
Call report to: [phone] ask for adjustment supervisor
Fax report to: [phone]
Medical necessity and transport forms on chart.
[2024-11-27] MEDS: STERILE WATER FOR INJECTION 10 ML IV (12:26)
[2024-11-27] MEDS: ROCEPHIN 1000 MG IV (12:26)
[2024-11-27] MEDS: DILAUDID 0.25 MG IV (12:32)
[2024-11-27 12:52] VITALS: BP 115/86
--- NOTE | 2024-11-27 13:29 | W.PN.HOSP.TC ---
Today's Communication/Plan
-
F/u path results
CT A/P eval bleed
pain control
Assessment / Plan
Assessment / Plan
MR a/p
Innumerable scattered small nonenhancing hepatic lesions as described. 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 Less likely differentials include atypical liver metastases, microabscesses, or Caroli
disease. As a conservative measure, recommend follow-up MRI abdomen without and with Eovist contrast in 3-6 months.
Diffuse prominence of the intra- and extra-hepatic biliary ducts, likely within normal limits given patient age and postcholecystectomy state. No discrete biliary strictures or filling defects.
- Radiology addendum: There are scattered lesions within the visualized vertebral bodies, possibly metastases. Additionally there are mildly enlarged upper abdominal lymph nodes in the portacaval and retroperitoneal regions, reactive versus
metastatic. These findings may increase the likelihood that the liver lesions could represent hypoenhancing metastases.
CT a/p
Heterogeneous liver parenchyma with the suggestion of numerous small intraparenchymal liver lesions. Hepatic metastases versus other underlying infiltrative process. This appears to be new compared to the CT abdomen/pelvis from 01/12/2019. The
patient is currently scheduled for an MRI of the abdomen, at which time further evaluation of the liver is recommended.
Bile duct dilatation may be secondary to the previous cholecystectomy. No appreciable choledocholithiasis by CT.
Mild upper retroperitoneal lymphadenopathy, reactive versus metastatic.
Pelvic US
The endometrium measures 9 mm in thickness, which is considered abnormally thickened for a symptomatic postmenopausal patient (greater than 5 mm). Findings could be secondary to endometrial hyperplasia or endometrial carcinoma. Sonographic
evaluation is limited by patient body habitus.

#Vaginal bleeding
-Pelvic US finding as above
-underwent hysteroscopy and D&C on 11/21 -
-Endometrial biopsy report came negative for any malignancy.
-AFP/CA125 wnl . CA19-9 high 487. CEA 13.8 (elevated)
-Gynecology help appreciated
-Consulted Oncology and Driving Teacher Onc
-Monitor for any further vaginal bleeding
# Suspected metastatic disease of liver/spine
# Hyperbilirubinemia
Elevated ALP
- MRI/CT abdomen pelvis showing nonenhancing hepatic lesions with wide variety of differential as mentioned above MRI abdomen report
- There was also visible bony metastasis
-liver biopsy 11/26 - f/u path
- Continue monitoring LFT
- Oncology and Driving Teacher Onc consulted
-Severe abd pain - repeat CT A/P
#Hyponatremia
- most likely SIADH
-Mild, monitor
- likely related to malignancy
-Fluid restriction
#Normocytic anemia
- continue monitoring. remains stable 9-10 range
#Hypokalemia
-monitor and replete
#Nausea/vomiting
- abd exam is benign
- Patient remains on Zofran, added Reglan to regimen
Essential hypertension
Schizophrenia
Iron deficiency anemia
Chronic dysfunction/wheelchair-bound
Intellectual disability
Cholecystectomy
DVT PPX - Heparin subq
Full code
Total time spent on today's encounter was 51 minutes which included time spent in counseling the patient/family regarding diagnosis and treatment plan as listed above, goals of care, and symptom management. Case was discussed with nursing staff,
specialists, and care coordinators/case management. All labs and imaging personally reviewed by me. Remainder the time spent in detailed review of previous records, lab data, imaging, and other medical provider documentation.
Anticipated Discharge: > 48 hours
Subjective/Interval History
-
Date of Service: November 27, 2024
sleeping this am; had severe abd pain today
Objective Data
-
Labs:
Laboratory Results
11/27/24
07:17
WBC 11.6 H
Hgb 8.5 L
Hct 24.6 L
Plt Count 230
Sodium 129 L
Potassium 4.0
Chloride 96 L
Carbon Dioxide 27
BUN 16
Creatinine 0.7
Glucose 94
Calcium 8.2 L
Total Bilirubin 5.7 H
AST 161 H
ALT 89 H
Alkaline Phosphatase 1965 H
Vital Signs:
Vital Signs
Temp Pulse Resp BP Pulse Ox
97.7 F 83 18 115/86 94
11/27/24 07:40 11/27/24 07:40 11/27/24 07:40 11/27/24 12:52 11/27/24 07:40
I&O
11/26/24 11/27/24 11/28/24
06:59 06:59 06:59
Intake Total 1800 / 1800 1080 / 1080
Balance 1800 / 1800 1080 / 1080
Review of Systems
-
History Source: Patient
All other systems: Not reviewed unless documented
Data Reviewed
-
MRI: Report Reviewed by me
Labs: Labs Reviewed by me
[2024-11-27 15:35] VITALS: BP 83/37
[2024-11-27] MEDS: LR 1000 IV (17:09)
--- NOTE | 2024-11-27 17:43 | PTCARENOTE ---
pt hypotensive.83/37. MD made aware LR fluid bolus ordered.
[2024-11-27 18:27] VITALS: BP 104/54
[2024-11-27] MEDS: MELATONIN 6 MG PO (21:43)
[2024-11-27 23:00] VITALS: BP 96/46
[2024-11-28] MEDS: REGLAN 5 MG IV ×2 (05:56→12:14)
--- NOTE | 2024-11-28 06:11 | W.PN.ONC2 ---
Today's Communication / Plan
-
Recommend case management and risk-management evaluations and transition to palliative care alone. Not a chemotherapy candidate. Hospice care appropriate.
Impression
Impression
Met Colon CA with liver and bone mets
Family history of colon cancer
Intellectual disability
Morbid obesity
Modest iron overload
Malnutrition/hypoalbuminemia
Anemia, suspect multifactorial including blood loss, inflammatory state
Plan
Plan
Pathology c/w ST IV colon ca with liver and bone mets. In addition, she is liver failure with significant elevated LFTs most likely related to innumerable small liver metastasis.
Reviewed her demographics and there is no family listed and she also tells me she has no family.
At this point, I do not feel she is eligible for systemic palliative treatment as she has advanced stage IV colon cancer with innumerable innumerable liver mets seen on imaging. Also seen is bone metastasis and lymph node metastasis.
LFTs are elevated. Systemic treatment would have a higher potential for toxicity.
Unfortunately, in light of her lack of adequate safety net, liver failure from innumerable hepatic metastasis, and stage IV biopsy-proven colon cancer diagnosis, I believe that the best course of action going forward is palliative care alone with
hospice at [facility].
Chemotherapy has significant toxicities it may be hard for her to inform us about which would lead to potential even higher risk for doing her harm if we were to proceed with chemotherapy.
I have discussed with attending and recommending case management consultation for palliative care. Eventually, she should also have a guardian assigned to her for end-of-life decisions. For instance, she should be transition from full code to DNR.
Subjective/Objective
Chief Complaint
ACS oncology
Subjective
Patient with intellectual disability. No specific complaints. Briefly discussed that pathology from biopsy showed cancer and patient become very upset and tearful and kept repeating that she is going to , she is going to , this means she is
going to .
Vital Signs:
Vital Signs
Temp Pulse Resp BP Pulse Ox
97.5 F 82 20 96/46 94
11/27/24 23:00 11/27/24 23:00 11/27/24 23:00 11/27/24 23:00 11/27/24 23:00
Lab Results:
Laboratory Data
WBC 11.6 10^3/uL (4.8-10.8) H 11/27/24 07:17
Hgb 8.5 g/dL (12.0-16.0) L 11/27/24 07:17
Plt Count 230 10^3/uL (130-400) 11/27/24 07:17
PT 16.8 Sec (11.4-14.6) H 11/20/24 03:40
INR 1.33 11/20/24 03:40
eGFR > 60.00 11/27/24 07:17
Laboratory Tests
11/21/24 11/21/24
07:24 07:25
Tumor Marker AFP 1.46
Carcinoembryonic Ag 13.8
CA 19-9 Antigen 487 H
CA 125 Antigen 6.0
Laboratory Tests
11/28/24
07:37
Total Bilirubin 6.7 H
AST 172 H
ALT 87 H
Alkaline Phosphatase 1819 H
Albumin 2.1 L
FINAL DIAGNOSIS
A. Liver, ultrasound guided biopsy:
* Metastatic colonic adenocarcinoma, see note.
Note: Immunohistochemical stains were performed with adequate controls. The malignant cells
are positive for SATB2 and CK20. They are negative for CK7, WT-1 and PAX8, supporting the
diagnosis.
Mismatch Repair
Immunohistochemistry (IHC) Testing for Mismatch Repair (MMR) Proteins:
MLH1 Result: Intact nuclear expression
MSH2 Result: Intact nuclear expression
MSH6 Result: Intact nuclear expression
PMS2 Result: Intact nuclear expression
Background nonneoplastic tissue / internal control with intact nuclear expression
IHC Interpretation:
No loss of nuclear expression of MMR proteins: low probability of MSI-H
Colon cancer biomarkers will be reported as an addendum.
Case reviewed at daily consensus conference.
The findings of this case were conveyed to and received by Dr. Goodwin via a secure messaging
system on 11/27/24 at .
CPT Code: 91854, 58345, 19040, 18658 x 7
Dictated by: Kristina Berman MD
Physical Exam
HEENT: Other (Poor dentition)
Cardiology: S1 and S2
GI: Other (Morbid obesity)
[2024-11-28 07:40] VITALS: BP 93/56
[2024-11-28 08:03] LABS: Hematocrit 23.7 % (37.0-47.0); Mean Corp Hgb Conc. 33.8 g/dL (33.0-37.0); Mean Corpuscular Volume 80.1 fL (81.0-99.0); Mean Platelet Volume 9.3 fL (7.4-10.4); Platelet Count 218 10^3/uL (130-400); Red Blood Cell Count 2.96 10^6/uL (4.20-5.40); Red Cell Dist. Width 19.5 % (11.5-14.5); White Blood Cell Count 10.9 10^3/uL (4.8-10.8)
[2024-11-28 08:29] LABS: ALT (SGPT) 87 U/L (0-35); AST (SGOT) 172 U/L (14-36); Albumin 2.1 g/dl (3.5-5.0); Blood Urea Nitrogen 12 mg/dl (7-17); Carbon Dioxide 31 mmol/L (22-30); Chloride 97 mmol/L (98-107); Estimated Creatinine Clearance 122 ml/min; Glucose 86 mg/dl (70-99); Potassium 3.9 mmol/L (3.5-5.1); Sodium 130 mmol/L (135-145); Total Bilirubin 6.7 mg/dl (0.2-1.3); Total Protein 5.3 g/dl (6.3-8.2); eGFR > 60.00
[2024-11-28 08:44] LABS: Alkaline Phosphatase 1819 U/L (38-126)
[2024-11-28] MEDS: FLOMAX 0.8 MG PO (08:50)
[2024-11-28] MEDS: CELEXA 40 MG PO (08:50)
[2024-11-28] MEDS: PROTONIX 40 MG PO (08:50)
[2024-11-28] MEDS: FEOSOL 325 MG PO (08:51)
[2024-11-28] MEDS: RISPERDAL 2 MG PO (08:51)
[2024-11-28] MEDS: COZAAR PO (08:51)
[2024-11-28] MEDS: HEPARIN SC ×2 (08:52→15:11)
[2024-11-28] MEDS: DESENEX/MITRAZOL/ZEASORB 1 APPLIC TOPICAL (08:52)
--- NOTE | 2024-11-28 09:31 | CM ---
Addendum entered by Caro Ballard RN 11/28/24 12:36:
Call report to: [phone] ask for subway repair supervisor
Fax report to: [phone]
Medical necessity and transport forms on chart.
Addendum entered by Caro Ballard RN 11/28/24 11:56:
IMM reviewed.
Original Note:
Reviewed the chart notes. Consult received for hospice. CM spoke with [facility] Liaison with [facility]. Referral to [facility] sent via [facility]. CM continues to be available to patient/family and is
monitoring medical plan for needs at discharge.
Plan: Discharge back to [facility] on hospice.
[2024-11-28] MEDS: ZOFRAN 4 MG IV (12:11)
[2024-11-28] MEDS: ROCEPHIN 1000 MG IV (12:13)
[2024-11-28] MEDS: STERILE WATER FOR INJECTION 10 ML IV (12:13)
--- NOTE | 2024-11-28 12:31 | W.PN.HOSP.TC ---
Addendum entered and electronically signed by Marco A Goodwin MD 11/28/24 16:02:
[id number]
Original Note:
Today's Communication/Plan
-
complete abx course
dc for hospice planning
Assessment / Plan
Assessment / Plan
MR a/p
Innumerable scattered small nonenhancing hepatic lesions as described. 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 Less likely differentials include atypical liver metastases, microabscesses, or Caroli
disease. As a conservative measure, recommend follow-up MRI abdomen without and with Eovist contrast in 3-6 months.
Diffuse prominence of the intra- and extra-hepatic biliary ducts, likely within normal limits given patient age and postcholecystectomy state. No discrete biliary strictures or filling defects.
- Radiology addendum: There are scattered lesions within the visualized vertebral bodies, possibly metastases. Additionally there are mildly enlarged upper abdominal lymph nodes in the portacaval and retroperitoneal regions, reactive versus
metastatic. These findings may increase the likelihood that the liver lesions could represent hypoenhancing metastases.
CT a/p
Heterogeneous liver parenchyma with the suggestion of numerous small intraparenchymal liver lesions. Hepatic metastases versus other underlying infiltrative process. This appears to be new compared to the CT abdomen/pelvis from 01/12/2019. The
patient is currently scheduled for an MRI of the abdomen, at which time further evaluation of the liver is recommended.
Bile duct dilatation may be secondary to the previous cholecystectomy. No appreciable choledocholithiasis by CT.
Mild upper retroperitoneal lymphadenopathy, reactive versus metastatic.
Pelvic US
The endometrium measures 9 mm in thickness, which is considered abnormally thickened for a symptomatic postmenopausal patient (greater than 5 mm). Findings could be secondary to endometrial hyperplasia or endometrial carcinoma. Sonographic
evaluation is limited by patient body habitus.

#Vaginal bleeding
-Pelvic US finding as above
-underwent hysteroscopy and D&C on 11/21 -
-Endometrial biopsy report came negative for any malignancy.
-AFP/CA125 wnl . CA19-9 high 487. CEA 13.8 (elevated)
-Gynecology help appreciated
-Consulted Oncology and Hydro Plant Operator Onc
-Monitor for any further vaginal bleeding
# Suspected metastatic disease of liver/spine
# Hyperbilirubinemia
Elevated ALP
- MRI/CT abdomen pelvis showing nonenhancing hepatic lesions with wide variety of differential as mentioned above MRI abdomen report
- There was also visible bony metastasis
-liver biopsy 11/26 - f/u path - Met Colon CA with liver and bone me
- Continue monitoring LFT
- Oncology and Hydro Plant Operator Onc consulted
-Severe abd pain - repeat CT A/P- no severe bleeding
- After discussion with oncology, understanding patient's intellectual disability and competency, appropriate for transition to palliative care alone, not a chemotherapy candidate. Hospice care appropriate. Please see oncology note for further
information although it probably remains difficult for patient to explain side effects of chemotherapy, toxicities if beginning palliative chemotherapy. Therefore, best option at this point would be hospice. Patient also acknowledged patient does
not want any heroic measures, does not want to be vegetable.
#Hyponatremia
- most likely SIADH
-Mild, monitor
- likely related to malignancy
-Fluid restriction
#Normocytic anemia
- continue monitoring. remains stable 9-10 range
#Hypokalemia
-monitor and replete
#Nausea/vomiting
- abd exam is benign
- Patient remains on Zofran, added Reglan to regimen
#UTI
-Klebsiella Pneumoniae
- ceftriaxone - DC on cefdinir to complete 7 day course
Essential hypertension
Schizophrenia
Iron deficiency anemia
Chronic dysfunction/wheelchair-bound
Intellectual disability
Cholecystectomy
DVT PPX - Heparin subq
Full code
More than 30 minutes spent in discharge including
Final examination of the patient
Summarizing hospital stay
Instructions for continuing care to all relevant caregivers
Preparation of discharge records, prescriptions, and referral forms
Total time spent (in minutes): 37
Anticipated Discharge: Today
Subjective/Interval History
-
Date of Service: November 28, 2024
No acute events, patient informed about metastatic colon cancer and life expectancy
Objective Data
-
Labs:
Laboratory Results
11/28/24
07:37
WBC 10.9 H
Hgb 8.0 L
Hct 23.7 L
Plt Count 218
Sodium 130 L
Potassium 3.9
Chloride 97 L
Carbon Dioxide 31 H
BUN 12
Creatinine 0.7
Glucose 86
Calcium 8.0 L
Total Bilirubin 6.7 H
AST 172 H
ALT 87 H
Alkaline Phosphatase 1819 H
Vital Signs:
Vital Signs
Temp Pulse Resp BP Pulse Ox
97.9 F 92 16 93/56 93
11/28/24 07:40 11/28/24 08:51 11/28/24 07:40 11/28/24 08:51 11/28/24 11:12
I&O
11/27/24 11/28/24 11/29/24
06:59 06:59 06:59
Intake Total 1079 / 1080 1959
Balance 1079 / 1080 1959
Review of Systems
-
History Source: Patient
All other systems: Not reviewed unless documented
Physical Exam
-
HEENT: Negative Oxygen
GI: Soft, Nontender and Nondistended
Musculoskeletal: No Edema
Neuro: Awake, Alert, Oriented, No Motor Deficits and Nonfocal/Grossly Intact
Psych: Calm
Data Reviewed
-
MRI: Report Reviewed by me
Labs: Labs Reviewed by me
--- NOTE | 2024-11-28 12:37 | W.DS.TRANS ---
DC Summary - Metallographic Technician
-
Discharge Instructions:
Discharge Diagnosis/Procedures Met Colon CA with liver and bone mets
Activity As tolerated
Blood Work cbc if desired although patient is hospice
appropriate
Instructions:
Stand-Alone Forms:
Changes to Home Medications: Yes
Discharge Medications:
DC Medications w/original date entered in [employer]
magnesium hydroxide 400 mg/5 mL oral suspension 30 ml PO DAILYPRN PRN constipation 07/27/17
citalopram 20 mg tablet (Celexa) 40 mg PO DAILY 03/23/18
pantoprazole 40 mg tablet,delayed release 40 mg PO DAILY ##0 03/25/18
ferrous sulfate 325 mg (65 mg iron) tablet (Feosol) 325 mg PO BID Supplement 05/03/18
bisacodyl 10 mg rectal suppository (Dulcolax (bisacodyl)) 10 mg UT DAILYPRN PRN constipation if MOM ineffective 08/07/22
ipratropium 0.5 mg-albuterol 3 mg (2.5 mg base)/3 mL nebulization soln 3 ml inhalation R Q4HPRN PRN cough/SOB 08/07/22
sodium phosphates 19 gram-7 gram/118 mL enema (Fleet Enema) 118 ml UT DAILYPRN PRN if dulcolax supp ineffective 08/07/22
loperamide 2 mg tablet 2 mg PO Q6HPRN PRN diarrhea 02/17/23
risperidone 3 mg tablet (Risperdal) 2 mg PO Q12H 02/17/23
melatonin 3 mg tablet 6 mg PO HS 11/20/24
cefdinir 300 mg capsule 300 mg PO Q12H 6 days #12 caps 11/28/24
miconazole nitrate 2 % topical powder (Miconazorb AF) 1 applic topical BID #0 grams 11/28/24
tamsulosin 0.4 mg capsule 0.8 mg (2 x 0.4 mg) PO DAILY #0 caps 11/28/24 cefdinir 300 mg capsule 300 mg PO Q12H 6 days #12 caps 11/28/24
Home Medication Changes
cefdinir 300 mg capsule 300 mg PO Q12H 6 days #12 caps 11/28/24
miconazole nitrate 2 % topical powder (Miconazorb AF) 1 applic topical BID #0 grams 11/28/24
tamsulosin 0.4 mg capsule 0.8 mg (2 x 0.4 mg) PO DAILY #0 caps 11/28/24 cefdinir 300 mg capsule 300 mg PO Q12H 6 days #12 caps 11/28/24
Pending Results: No
--- NOTE | 2024-11-28 15:39 | PTCARENOTE ---
BP checked at 63/40, rechecked at 86/43. Manually read at 110/56. made aware, no new orders at this time.
[2024-11-28 15:43] VITALS: BP 110/56
== END 2024-11-28 19:23 | DRG 744 ==
LOC: 2 NORTH 12:07
PROVIDERS: Emergency Medicine; Hospitalist; Nurse Practitioner Adult Health; Obstetrics & Gynecology; Physician Assistant; Radiology Vascular & Interventional Radiology; ADMITTING PHYSICIAN Internal Medicine; ATTENDING PHYSICIAN Internal Medicine; CONSULT PHYSICIAN Internal Medicine; CONSULT PHYSICIAN Internal Medicine Hematology & Oncology; CONSULT PHYSICIAN Obstetrics & Gynecology Gynecologic Oncology; EMERGENCY PHYSICIAN Emergency Medicine; FAMILY PHYSICIAN Internal Medicine; OTHER PHYSICIAN Obstetrics & Gynecology
PROC: 0UDB8ZX Extraction of Endometrium, Via Natural or Artificial Opening Endoscopic, Diagnostic (ICD-10-PCS; 2024-11-21)
PROC: 0FB03ZX Excision of Liver, Percutaneous Approach, Diagnostic (ICD-10-PCS; 2024-11-26)
DX: N95.0 Postmenopausal bleeding (principal); C18.9 Malignant neoplasm of colon, unspecified; C78.7 Secondary malignant neoplasm of liver and intrahepatic bile duct; C79.51 Secondary malignant neoplasm of bone; K92.0 Hematemesis; Z68.42 Body mass index [BMI] 45.0-49.9, adult; E87.1 Hypo-osmolality and hyponatremia; N39.0 Urinary tract infection, site not specified; F79 Unspecified intellectual disabilities; E78.00 Pure hypercholesterolemia, unspecified; I10 Essential (primary) hypertension; E66.01 Morbid (severe) obesity due to excess calories; D25.0 Submucous leiomyoma of uterus; K57.30 Diverticulosis of large intestine without perforation or abscess without bleeding; D50.9 Iron deficiency anemia, unspecified; Z90.49 Acquired absence of other specified parts of digestive tract; K59.00 Constipation, unspecified; E87.6 Hypokalemia; Z79.84 Long term (current) use of oral hypoglycemic drugs; E11.9 Type 2 diabetes mellitus without complications; Z80.0 Family history of malignant neoplasm of digestive organs; K29.50 Unspecified chronic gastritis without bleeding; K21.00 Gastro-esophageal reflux disease with esophagitis, without bleeding; Z79.899 Other long term (current) drug therapy; D72.829 Elevated white blood cell count, unspecified; B96.1 Klebsiella pneumoniae [K. pneumoniae] as the cause of diseases classified elsewhere; D25.2 Subserosal leiomyoma of uterus; F25.9 Schizoaffective disorder, unspecified; F32.A Depression, unspecified; F41.9 Anxiety disorder, unspecified; I25.10 Atherosclerotic heart disease of native coronary artery without angina pectoris; K42.9 Umbilical hernia without obstruction or gangrene
CPT/HCPCS: 88305; 88307; 47000; 72197; 74177; 74183; 76856; 76942; 80048; 80053; 80076; 80143; 80179; 81003; 81015; 82077; 82105; 82248; 82378; 82607; 82728; 82746; 82977; 83540; 83550; 83605; 83690; 83735; 85025; 85027; 85045; 85610; 85652; 86301; 86304; 86704; 86705; 86706; 86708; 86709; 86803; 87077; 87086; 87186; 87340; 88341; 88342; 93005; 96361; 96374; 99152; 99285; A9575; G0123; Q9967

== ENCOUNTER 2024-12-07 15:21 | Inpatient (IN) | payer MEDICARE, OTHER, SELFPAY ==
[2024-12-07] VITALS (17 sets, daily range): BP systolic 60–114; BP diastolic 23–89
--- NOTE | 2024-12-07 12:52 | ED.GENMED ---
History of Present Illness
General
Chief Complaint: Failure to Thrive
Source: patient, records, [facility] records, previous radiology exam and previous hospital records
Exam Limitations: altered mental status
Time Seen by Provider: 12/07/24 12:51
Nursing documentation reviewed up to this point in time: agreed with
History of Present Illness
History of Present Illness:
64-year-old female known to me for many years from her prior hospital she has chronic mental illness, apparently lives locally in a [facility] recently diagnosed with stage IV colon cancer, brought in from EMS due to low blood pressure, not eating
or drinking for my review of the medical records specifically the oncology notes, she was not a candidate for chemo they recommended hospice, apparently the main issue with that is that she does not have any family or next of kin, EMS tells me that
they tried to sign her up for hospice in the [facility] but she did not understand that they did not feel comfortable proceeding,
Past History
Past History
ED Past Medical History: HTN, Hypercholesterolemia, NIDDM, Psychiatric (Schizoaffective disorder, Anxiety/Depression) and Other (Iron def anemia, GI bleeding.)
ED Past Surgical History: Cholecystectomy
Social History
Tobacco: Non-smoker
Alcohol: None
Personal: Single
Living: [facility]
Phy Exam
Physical Exam
Physical Exam:
Physical Exam
General: 64 male looks uncomfortable and confused
Neck: Jaundice dry lips
Heart: s1/s2 regular rate and rhythm, no murmur. equal radial pulses.
Lungs: no acute respiratory distress.
Neuro: alert and oriented.
Skin: no rash
Psychiatric: Flat
Extremities: Edema
Sepsis
Sepsis Screening
Sepsis Assessment: Sepsis Ruled Out
Sepsis Screen
Sepsis Screen: Sepsis Ruled Out
Date: 12/07/24
Time: 14:41
Course
Orders/Labs/Results
Orders:
Orders
12/07/24 12:50
EKG [Electrocardiogram (*1)] Urgent
Reason for Study: Abdominal Pain
12/07/24 12:51
EKG- Treatment ONCE
12/07/24 12:53
0.9% Sodium Chloride 1000 ml [Nss] 1,000 ml IV BOLUS
Morphine Sulfate 4 mg IV NOW STA
12/07/24 13:56
0.9% Sodium Chloride 1000 ml [Nss] 1,000 ml IV BOLUS
12/07/24 13:57
Case Management Consult ONCE
Case Management Consult: Hospice
Hospice: Evaluation and treat
Vital Signs
Initial and Last Documented VS:
Initial Vital Signs
Pulse Resp BP Pulse Ox
91 24 78/40 88
12/07/24 12:40 12/07/24 12:40 12/07/24 12:40 12/07/24 12:40
Last Documented Vital Signs
Pulse Resp BP Pulse Ox
87 18 76/30 97
12/07/24 14:00 12/07/24 14:00 12/07/24 14:00 12/07/24 13:45
*Critical Care Note
Total Time (30-74mins, 75-104mins- exclusive of procedures): 15
Update Note
Update Note:
2:30 PM numerous conversations with myself nursing case management hospice admitting team, I have known Ml for years, she apparently does not have a power of sports attorney, I believe that hospice is appropriate for her, this is through my direct
knowledge of her care my review of the past medical records including the review of the oncology note from her recent admission where she is not a candidate for chemotherapy and their recommendation was hospice and DNR status
ED Attending Note
-
Portions of this chart may have been created with voice recognition software.� Occasional wrong word or��sound alike� substitutions may have occurred due to the inherent limitations of voice recognition software.
Discharge Plan
Departure
Patient Disposition: Admit
Date of Disposition: 12/07/24
Time of Disposition: 14:40
Admit to: Med/Surg
Presentation/result/management discussed w/ accepting MD/DO: Hospitalist
Condition: Serious
Discharge Problem:
Metastatic colon cancer
Prescriptions:
No Action
magnesium hydroxide 30 ML suspension
30 ml PO DAILYPRN PRN (Reason: constipation)
citalopram [Celexa] 20 MG tablet
40 mg PO DAILY
pantoprazole 40 MG tablet,delayed release (DR/EC)
40 mg PO DAILY Qty: 0 0RF
ferrous sulfate [Feosol] 325 MG tablet
325 mg PO BID
ipratropium-albuterol 0.5 mg-3 mg(2.5 mg base)/3 mL Solution For Nebulization
3 ml INHALATION R Q4HPRN PRN (Reason: cough/SOB)
bisacodyl [Dulcolax (bisacodyl)] 10 mg Suppository
10 mg WI DAILYPRN PRN (Reason: constipation if MOM ineffective)
Fleet Enema 19-7 gram/118 mL Enema
118 ml WI DAILYPRN PRN (Reason: if dulcolax supp ineffective)
loperamide 2 mg Tablet
2 mg PO Q6HPRN PRN (Reason: diarrhea)
risperidone [Risperdal] 3 mg Tablet
2 mg PO Q12H
melatonin 3 mg Tablet
6 mg PO HS
miconazole nitrate [Miconazorb AF] 2 % Powder
1 applic topical BID Qty: 0 0RF
tamsulosin 0.4 mg Capsule
0.8 mg PO DAILY Qty: 0 0RF
cefdinir 300 mg capsule
300 mg PO Q12H 6 Days Qty: 12 0RF
Referrals:
Donn Bowman DO [Family Provider] -
Interventions
Interventions:
*Risk Screen - Suicide Last Done: 12/07/24 12:40
*General Assessment Last Done: 12/07/24 12:40
*Neglect/Abuse Screening Last Done: 12/07/24 12:40
*ED- Fall Risk Assessment Last Done: 12/07/24 12:40
*ED COVID-19 Vaccine History Last Done: 12/07/24 12:40
Discharge Date and Time
Print Language: MAORI
[2024-12-07] MEDS: NSS 1000 IV ×2 (12:58→13:58)
--- NOTE | 2024-12-07 13:08 | EDRN ---
Dr. Silver to bedside on patient arrival. discussed with patient her current health status and what he and the oncologist think about her case and that their recommendation is for her to transition to hospice. Currently only order for patient
regarding low BP is IVF, hung and running. Awaiting case management and ambulance dispatcher. Pt remains on the monitor, ivf infusing, arousable to verbal stimuli at this time. Continuing to monitor for new orders.
--- NOTE | 2024-12-07 13:44 | EDRN ---
Dr. Silver and Dr. Nelson at the bedside to assess patient and review chart together. Dr. Silver again discussed hospice with patient and realistic plan of care. Pt arousable to verbal stimuli, remains on the monitor, continuing to monitor.
--- NOTE | 2024-12-07 13:45 | CHAP ---
Emotional and spiritual support provided. Prayer blanket given. Will follow as able during her hospital stay.
--- NOTE | 2024-12-07 14:06 | CM ---
CM following re: discharge planning.
CM consulted to assist pt with discharge planning/hospice care.
Reviewed pt's chart, met with pt. Pt is not a great historian.
Per [facility] S admissions liaison Luiza, pt has been a assisted care resident at [facility] for many years, requires a lot of care. Per admissions liaison, pt was on hospice care at [facility] with [facility] in the pastand pt signed
herself in on hospice care. Per Luiza, [facility] was working on legal guardianship and per Luiza she does not have information of that outcome. Per admissions liaison, pt has no family.
Hospice consult noted. Pt referred to hospice for evaluation.
[facility] admissions liaison stated she is working with her team tpo find out whether or not pt can return back to their facility with hospice care.
D/C plan: uncertain at this time. hospice will evaluate. Awaiting for [facility] team on their decision regarding pt's care and discharge plan.
--- NOTE | 2024-12-07 14:25 | EDRN ---
tower hoist operator to the bedside with Dr. Silver and this RN to see patient. no new orders at this time
--- NOTE | 2024-12-07 14:38 | HOSPNOTE ---
Saw patient in the ED and the patient will need comfort measures placed. Patient has metastatic cancer and is complaining of severe abdominal pain. Patient will be given pain medications IV and be admitted on comfort measures. Admissions was called
for patient to go to [facility]. Report was given to the hospice department to follow over the weekend if any assistance is needed.
--- NOTE | 2024-12-07 14:55 | HPS.HSE ---
Family Physician
-
Family Physician: Donn Bowman, DO
Chief Complaint
-
Failure to Thrive
History of Present Illness
Patient is a 64 y/o female recently admitted to [facility] from November 21 to November 28 for jaundice at which time she was diagnosed with metastatic colon cancer. Patient sent to the emergency department today due to failure to thrive with
hypotension. Review of record indicate patient is not an appropriate candidate for palliative chemotherapy. Due to cognitive impairment and intellectual delay she was not signed onto hospice as she does not have the ability to understand that
decision. Patient has been a senior care resident at local nursing facility for many years and has no family / friends to help her with decisions. It is unclear if attempts have been made to arrange for a guardian but this is a time consuming process.
Medical History
Past Medical History
Past Medical History: Reports Other
Additional Past Medical History:
Morbid Obesity
Schizophrenia
Iron Deficiency Anemia
Hypertension
Chronic Ambulatory Dysfunction
Impaired Cognition / Intellectual Disability
Past Surgical History: Reports Cholecystectomy
Social History
Tobacco: Non-smoker
Alcohol: Former
Drug: None
Living: Skilled Nursing
Family History
Family History: Not pertinent
Allergies / Home Medications
Allergies reflects when Allergies were last updated in [facility].
Home Medications with original date entered in [facility]
Allergy/Medication List:
Allergies
Allergy/AdvReac Type Severity Reaction Status Date / Time
chlorpromazine Allergy Unknown Verified 12/07/24 12:39
[From Thorazine]
haloperidol [From Haldol] Allergy Unknown Verified 12/07/24 12:39
tobramycin [From Tobrex] Allergy Unknown Verified 12/07/24 12:39
Home Medications
magnesium hydroxide 400 mg/5 mL oral suspension 30 ml PO DAILYPRN PRN constipation 07/27/17
pantoprazole 40 mg tablet,delayed release 40 mg PO DAILY ##0 09/01/18
ferrous sulfate 325 mg (65 mg iron) tablet (Feosol) 325 mg PO BID Supplement 05/03/18
bisacodyl 10 mg rectal suppository (Dulcolax (bisacodyl)) [address] DAILYPRN PRN constipation if MOM ineffective 08/07/22
ipratropium 0.5 mg-albuterol 3 mg (2.5 mg base)/3 mL nebulization soln 3 ml inhalation R Q4HPRN PRN cough/SOB 08/07/22
sodium phosphates 19 gram-7 gram/118 mL enema (Fleet Enema) [address] DAILYPRN PRN if dulcolax supp ineffective 08/07/22
loperamide 2 mg tablet 2 mg PO Q6HPRN PRN diarrhea 02/17/23
risperidone 3 mg tablet (Risperdal) 2 mg PO Q12H 02/17/23
melatonin 3 mg tablet 6 mg PO HSPRN PRN sleep 11/20/24
acetaminophen 325 mg tablet (Tylenol) 650 mg PO Q6HPRN PRN mild pain 12/07/24
acetaminophen 650 mg rectal suppository [address] Q6HPRN PRN fever 12/07/24
citalopram 40 mg tablet (Celexa) 40 mg PO DAILY 12/07/24
hyoscyamine sulfate 0.125 mg tablet (Levsin) 0.125 mg PO QIDPRN PRN secretions 12/07/24
lorazepam 0.5 mg tablet 0.5 mg PO Q6HPRN PRN anxiety 12/07/24
losartan 50 mg tablet 50 mg PO DAILY 12/07/24
ondansetron HCl 8 mg tablet 8 mg PO AC 12/07/24
tamsulosin 0.4 mg capsule 0.4 mg PO DAILY 12/07/24
tramadol 100 mg tablet 100 mg PO BID 12/07/24
Review of Systems
-
Unable to obtain full review of systems at this time due to: Other (Cognitive Impairment)
Physical Exam
Vital Signs
Vital Signs
Pulse Resp BP Pulse Ox
88 27 80/38 97
12/07/24 14:45 12/07/24 14:45 12/07/24 14:45 12/07/24 13:45
Physical Exam
General: Well Developed, Well Nourished and Morbidly Obese
HEENT: NormoCephalic, Atraumatic, Oxygen (Nasal Cannula) and Other (Dry mucous membrane)
Respiratory: Clear and Non Labored Respirations; No Wheezes, Rales or Rhonchi
Cardiac: S1/S2 and Regular Rhythm; No Murmur
GI: Soft and Tender (Mild throughout)
Rectal: Deferred by Provider
Musculoskeletal: No Clubbing and No Cyanosis
Skin: Warm and Dry; No Rash
Neuro: Other (Easily arousable to name; Able to tell me its November 2024 and that she is at the hospital (though did state she was at [facility]))
Psych: Calm
Data Reviewed
-
Old Records: Reviewed
Impression/Plan
-
Failure to Thrive secondary to Metastatic Colon Cancer
-Reviewed Oncology notes from previous admission which state patient is not an appropriate candidate for chemotherapy which would only palliative in nature
-Reviewed with ED physician who know this patient from prior emergency department visit. Patient is unable to understand her poor prognosis
-Multiple providers agree patient is an appropriate hospice candidate
-Patient will be admitted for comfort care
--- NOTE | 2024-12-07 15:16 | W.PN.UPDATE ---
Update Note
Progress Note Update
This is an addendum to H&P written by Laura Kim on 12/07/2024.� Patient seen and examined independently with PA.
64-year-old female past medical history of metastatic colon cancer with liver and bone metastases, postmenopausal bleeding, hyponatremia, normocytic anemia, hypertension, schizophrenia, iron deficiency anemia, chronic ambulatory dysfunction,
intellectual disability, brought in for low blood pressure by EMS and decreased p.o. intake.
Patient was recently admitted and found to have metastatic colon cancer and seen by oncology and not a candidate for chemotherapy and hospice was recommended by oncology.� She does not have family or next of kin or power of estate attorney.� EMS tried to
arrange for hospice in the halfway but they did not feel comfortable proceeding as patient could not participate in the discussion.
Dr. Silver who has known her for many years and I are in agreement that patient should be hospice level and DNR.� Patient unable to meaningfully participate in such a discussion currently.�Comfort care orders placed. Case management consulted.�
[2024-12-07] MEDS: ATIVAN 0.5 MG IV (16:15)
[2024-12-07] MEDS: NSS (PRESERVATIVE FREE) 0.25 ML IV (16:15)
[2024-12-07] MEDS: ZOFRAN 4 MG IV (16:15)
[2024-12-07] MEDS: MORPHINE SULFATE 2 MG IV ×2 (16:18→22:32)
[2024-12-08] MEDS: MORPHINE SULFATE 2 MG IV ×4 (02:09→14:06)
[2024-12-08 07:10] VITALS: BP 59/27
--- NOTE | 2024-12-08 12:22 | W.PN.HOSP.TC ---
Addendum entered and electronically signed by Ray Cosme MD 12/08/24 16:38:
Total time spent on d/c = 65 min. This included today's physical exam, progress note, review of laboratory and diagnostic data, discussions with other healthcare providers, preparation of the pronouncement of documentation and
certificate.
Original Note:
Today's Communication/Plan
-
see plan
Assessment / Plan
Assessment / Plan
Gen: NAD, NCAT
CV: RRR, +S1/S2, no m/r/g.
Resp: Upper airway gurgling, coarse breath sounds/rhonchi bilaterally
Abd: +BS, soft, NT, ND
Skin: No rashes.
Neuro: Unresponsive to loud voice and shoulder shake
Metastatic colon cancer with liver and bone metastases:
-Patient has no family members and prior to arrival and on arrival the patient was unable to make decisions for self
-Drs. Silver and Sulaiman decided that comfort care was ethical and appropriate. Currently on comfort care.
-I have personally reviewed the discharge summary and oncology progress note, 'Recommend case management and risk-management evaluations and transition to palliative care alone. Not a chemotherapy candidate. Hospice care appropriate.'
-From Dr. Silver's note 12/07/24, 'Update Note: 2:30 PM numerous conversations with myself nursing case management hospice admitting team, I have known Ml for years, she apparently does not have a power of [place] attorney, I believe that hospice is
appropriate for her, this is through my direct knowledge of her care my review of the past medical records including the review of the oncology note from her recent admission where she is not a candidate for chemotherapy and their recommendation was
hospice and DNR status'
-I personally spoke to Dr. Silver over the phone at 1236 on 12/08/24 to review the events of 12/07/24. I also spoke to Dr. Hilario over the phone just now.
-due to the fact that aggressive care would be futile at this time I agree with Drs. Silver and Sulaiman that care is futile. Of note, patient was on hospice in the past but on enrolled herself from hospice at a time which she had decision-making
capacity.
-on my evaluation today the patient does not have decision-making capacity.
-the only ethical decision at this time, in the face of terminal, metastatic colon cancer, is to continue comfort care.
-discussed with RN and desktop administrator concrete swimming pool installer
Total time spent on today's encounter was 52 minutes which included time spent in counseling the patient/family regarding diagnosis and treatment plan as listed above, goals of care, and symptom management. Case was discussed with nursing staff,
specialists, and care coordinators/case management. All labs and imaging personally reviewed by me. Remainder the time spent in detailed review of previous records, lab data, imaging, and other medical provider documentation.
Anticipated Discharge: Today
Subjective/Interval History
-
Date of Service: December 08, 2024
Objective Data
-
Vital Signs:
Vital Signs
Temp Pulse Resp BP Pulse Ox
97.5 F 90 16 92
12/08/24 07:10 12/08/24 07:10 12/08/24 07:10 12/08/24 07:10 12/08/24 07:10
I&O
12/07/24 12/08/24 12/09/24
06:59 06:59 06:59
Intake Total 0 / 0
Balance 0 / 0
[2024-12-08] MEDS: ROBINUL 0.2 MG IV (12:44)
--- NOTE | 2024-12-08 12:54 | CM ---
Addendum entered by Viviana Marin 12/08/24 13:38:
Discussed with team. Pt currently on comfort measures. Unresponsive. Not appropriate for transport back to facility. Requiring IV medications.
Original Note:
Per text message sent to HUNTER Green yesterday at 8:47PM stating the following, 'She can come back because my tableau administrator just call me and said that they're working on emergency guardianship and soon as they get the guardianship they're going to sign
her up on hospice.'
--- NOTE | 2024-12-08 13:45 | W.PN.UPDATE ---
Update Note
Progress Note Update
As per CM pt was full code at the long-term. Currently, this does not change the fact that the patient's situation is terminal and aggressive care would be futile. Ethically I think it would be an appropriate to intubate this patient and place
her on vasopressors at this time. After discussion with case management efforts are underway to obtain emergency guardianship. This case is also going to be discussed with risk on-call at the [facility]. In the meantime I have
asked for assistance from the manager port, Dr. Gillis. I have discussed the case with him over the phone and explained my thoughts on the matter, specifically that I believe care is futile and further aggressive care would be unethical. I have
asked him to see the patient in consultation urgently to provide an opinion on this matter at this time. He verbally acknowledged that he will see the patient in consultation.
--- NOTE | 2024-12-08 14:03 | CON.INTV ---
Consultation
Consultation Request
Date/Time Consultation Requested: 12/08/2024 - 1343
Date/Time Consultation Performed: 12/08/2024 - 1355
Requesting Provider: Dr. Cosme
Performing Provider: Dr. Gillis
Reason for Consultation: Hypotension
Medical History
-
Chief Complaint: Failure to thrive, low blood pressure and abdominal symptoms
History of Present Illness:
64-year-old female with a past medical history of metastatic colon cancer with mets to liver and bone, morbid obesity, schizophrenia, hypertension and hypercholesterolemia who presented with failure to thrive and hypotension. Patient was recently
hospitalized here 11/21 - 11/28/2024. Had an ultrasound-guided liver biopsy on 11/26/2024 showing metastatic colon adenocarcinoma. Oncology consulted and deemed her ineligible for systemic palliative treatment for her advanced age for colon cancer
liver mets seen on imaging with bone and lymph node metastasis. Systemic treatment would have a higher potential for toxicity per oncology. The best course of action going forward per oncology is palliative care along with hospice at the nursing
home. She was discharged back to her [place] [facility] [place] at [facility] on 11/28. Patient has no family or friends to help her make medical decisions. Patient had continued failure to thrive with hypotension and was sent back to the ER on 12/07 for
evaluation. Patient was admitted to the floor where she has remained hypotensive and unresponsive with upper airway gurgling. [employer] services consulted for additional management/recommendations.
When I saw the patient, she was in bed, in no acute distress, unresponsive and appearing to take agonal respirations. Per the nurse, she has appeared like this all day. Unable to obtain history or ROS given patient's clinical status.
PMHx: Metastatic colon cancer with mets to liver + bone, morbid obesity, schizophrenia, iron deficiency anemia, hypertension, hypercholesterolemia, history of ataxia, history of acute cholecystitis s/p cholecystectomy, chronic ambulatory
dysfunction, intellectual disability
PSHx: Cholecystectomy, bilateral ear surgery
Past Medical History
Past Medical History: Other (Above as per HPI)
Past Surgical History: Other (Above as per HPI)
Social History
Tobacco: Non-smoker
Alcohol: Former
Drug: None
Living: Usp
Family History
Family History: Cancer (Mother; family history of colon cancer)
Allergies / Home Medications
Allergies
Allergy/AdvReac Type Severity Reaction Status Date / Time
chlorpromazine Allergy Unknown Verified 12/07/24 12:39
[From Thorazine]
haloperidol [From Haldol] Allergy Unknown Verified 12/07/24 12:39
tobramycin [From Tobrex] Allergy Unknown Verified 12/07/24 12:39
Home Medications
�Medication �Instructions �Recorded �Confirmed �Last Taken �Type
magnesium hydroxide 400 mg/5 mL 30 ml PO DAILYPRN PRN constipation 07/27/17 12/07/24 Unknown History
oral suspension
pantoprazole 40 mg tablet,delayed 40 mg PO DAILY ##0 03/25/18 12/07/24 05/03/18 Rx
release
ferrous sulfate 325 mg (65 mg 325 mg PO BID Supplement 05/03/18 12/07/24 05/03/18 History
iron) tablet (Feosol)
bisacodyl 10 mg rectal suppository 10 mg ND DAILYPRN PRN constipation 08/07/22 12/07/24 Unknown History
(Dulcolax (bisacodyl)) if MOM ineffective
ipratropium 0.5 mg-albuterol 3 mg 3 ml inhalation R Q4HPRN PRN 08/07/22 12/07/24 Unknown History
(2.5 mg base)/3 mL nebulization cough/SOB
soln
sodium phosphates 19 gram-7 118 ml ND DAILYPRN PRN if dulcolax 08/07/22 12/07/24 Unknown History
gram/118 mL enema (Fleet Enema) supp ineffective
loperamide 2 mg tablet 2 mg PO Q6HPRN PRN diarrhea 02/17/23 12/07/24 Unknown History
risperidone 3 mg tablet (Risperdal) 2 mg PO Q12H Mental Health/Anxiety 02/17/23 12/07/24 Unknown History
melatonin 3 mg tablet 6 mg PO HSPRN PRN sleep 11/20/24 12/07/24 Unknown History
acetaminophen 325 mg tablet 650 mg PO Q6HPRN PRN mild pain 12/07/24 12/07/24 Unknown History
(Tylenol)
acetaminophen 650 mg rectal 650 mg ND Q6HPRN PRN fever 12/07/24 12/07/24 Unknown History
suppository
citalopram 40 mg tablet (Celexa) 40 mg PO DAILY Mental 12/07/24 12/07/24 Unknown History
Health/Anxiety
hyoscyamine sulfate 0.125 mg 0.125 mg PO QIDPRN PRN secretions 12/07/24 12/07/24 Unknown History
tablet (Levsin)
lorazepam 0.5 mg tablet 0.5 mg PO Q6HPRN PRN anxiety 12/07/24 12/07/24 Unknown History
losartan 50 mg tablet 50 mg PO DAILY Blood Pressure 12/07/24 12/07/24 Unknown History
ondansetron HCl 8 mg tablet 8 mg PO AC Gastrointestinal Issue 12/07/24 12/07/24 Unknown History
tamsulosin 0.4 mg capsule 0.4 mg PO DAILY Urinary Issue 12/07/24 12/07/24 Unknown History
tramadol 100 mg tablet 100 mg PO BID Pain 12/07/24 12/07/24 Unknown History
Review of Systems
-
Unable to Obtain full review of systems at this time due to: Other (Patient's clinical status with unresponsiveness)
Vitals / Labs / Diagnostic Testing
Vital Signs
Temp Pulse Resp BP Pulse Ox
97.5 F 90 16 59 92
12/08/24 07:10 12/08/24 07:10 12/08/24 07:10 12/08/24 07:10 12/08/24 07:10
Diagnostic Testing:
Physical Exam
-
HEENT: Normocephalic and Other (Dry mucous membranes)
Cardiovascular: Peripheral Edema (+1 lower extremity pitting edema bilaterally), Other (Bradycardic) and Other (Distant cardiac sounds)
Respiratory: Wheeze (negative), Rales (Bilaterally), Rhonchi (Bilaterally) and Other (Agonal respirations)
GI: Soft, Distended (Abdominal obesity), Non Tender and Other (Hypoactive bowel sounds)
Neurology: Tremors (negative) and Other (Unresponsive; absent corneal reflexes, does not withdraw extremities to painful stimuli )
Skin: Warm and Dry
General: Respiratory Distress (negative), Fever (negative), Chills (negative) and Sweats (negative)
Assessment
-
Assessment: 64-year-old female with a past medical history of metastatic colon cancer with mets to liver and bone, morbid obesity, schizophrenia, hypertension and hypercholesterolemia who presented with failure to thrive and hypotension. Patient
was recently hospitalized here 11/21 - 11/28/2024. Had an ultrasound-guided liver biopsy on 11/26/2024 showing metastatic colon adenocarcinoma. Oncology consulted and deemed her ineligible for systemic palliative treatment for her advanced age for
colon cancer liver mets seen on imaging with bone and lymph node metastasis. Systemic treatment would have a higher potential for toxicity per oncology. The best course of action going forward per oncology is palliative care along with hospice at
the [place] [facility]. She was discharged back to [place] at [facility] on 11/28. Patient has no family or friends to help her make medical decisions. Patient had continued failure to thrive with hypotension and was sent back to the ER on 12/07
for evaluation. Patient was admitted to the floor where she has remained hypotensive and unresponsive with upper airway gurgling. [employer] services consulted for additional management/recommendations.
Chronic conditions [employer]: Metastatic colon cancer with mets to liver + bone, morbid obesity, schizophrenia, iron deficiency anemia, hypertension, hypercholesterolemia, history of ataxia, history of acute cholecystitis s/p cholecystectomy, chronic
ambulatory dysfunction, intellectual disability
Impression:
#Hypotension due to hypovolemia in the setting of [id number] with hypoalbuminemia and this end-of-life scenario
#Metastatic colon cancer with metastasis to liver and bone
#Morbid obesity
#Failure to thrive with malnutrition/hypoalbuminemia
#History of anemia
Plan:
- Given the patient's clinical status with recent documentation from oncology that the patient is not a chemotherapy candidate as systemic chemotherapy treatment would have a higher potential for toxicity - Oncology rec'd palliative care only with
hospice care
- Given the above, I do not feel it is ethical to bring pt to ICU for aggressive interventions at this time
- It would be physiologically futile to intubate or perform CPR, as it would not be standard of care. The patient is in end-stage colon cancer (stage 4).
- Recommend to continue with comfort care measures, continuing medications for comfort
- Morphine
- prn ativan
- prn zofran
- prn hyoscyamine
- Continue as per his precautions and suction oropharynx as needed to try to keep airway patent
- Avoid blood draws or vital signs
Code status: DNR/DNI
No need for ICU level of care at this time. Continue management on the floor with comfort care measures as stated above.
Total time spent today was 45 minutes for this encounter. Time includes reviewing laboratory test/imaging results, reviewing pertinent medical records, obtaining and reviewing medical history, performing an appropriate exam, ordering medications,
tests and procedures. Time also includes documentation of this encounter, coordinating patient care and communicating with other healthcare professionals. Total time does not include separately billed tests performed on this date of service.
--- NOTE | 2024-12-08 14:10 | W.PN.UPDATE ---
Update Note
Progress Note Update
It would be physiologically futile to intubate or perform CPR, as it would not be standard of care. The patient is in end-stage colon cancer (stage 4).
--- NOTE | 2024-12-08 16:36 | W.PN.DEATH ---
Addendum entered and electronically signed by Ray Cosme MD 12/08/24 16:41:
Correction: Time of was 1625
Original Note:
Pronouncement of
-
Called to see patient to pronounce.
No spontaneous heart tones or respirations noted.
Patient not responsive to verbal stimuli.
Patient is pronounced .
Time of : 16:45
Date of : 12/08/24
Cause of : Metastatic colon cancer
Family Notified: No (Patient has no family)
--- NOTE | 2024-12-08 16:44 | W.DCSUMMARY ---
Discharge Summary
Discharge Data
Date of Admission: 12/07/24
Date of Discharge: 12/08/24
-
Pending Results: No
Hospital Course
Primary diagnoses:
Metastatic colon cancer
Failure to thrive
Hypotension
Secondary diagnoses:
Morbid Obesity due to excess calories
Schizophrenia
Iron Deficiency Anemia
Essential hypertension
Chronic Ambulatory Dysfunction
Impaired Cognition / Intellectual Disability
Consultants:
None
Imaging:
None
Hospital course: 64-year-old female who presented to the ER yesterday from her [facility] with a chief complaint of failure to thrive. She was hypotensive in the ER. Please review the extensive documentation from myself as well as Drs. Silver,
Sulaiman, and Carlin. In the ER was decided to make the patient comfort care. She was treated with comfort care medications. She peacefully at 1625 hrs. on December 08, 2024.
Discharge Plan
-
Referrals:
Donn Bowman, DO [Family Provider] -
Prescriptions:
No Action
magnesium hydroxide 30 ML suspension
30 ml PO DAILYPRN PRN (Reason: constipation)
pantoprazole 40 MG tablet,delayed release (DR/EC)
40 mg PO DAILY Qty: 0 0RF
ferrous sulfate [Feosol] 325 MG tablet
325 mg PO BID
ipratropium-albuterol 0.5 mg-3 mg(2.5 mg base)/3 mL Solution For Nebulization
3 ml INHALATION R Q4HPRN PRN (Reason: cough/SOB)
bisacodyl [Dulcolax (bisacodyl)] 10 mg Suppository
10 mg CO DAILYPRN PRN (Reason: constipation if MOM ineffective)
Fleet Enema 19-7 gram/118 mL Enema
118 ml CO DAILYPRN PRN (Reason: if dulcolax supp ineffective)
loperamide 2 mg Tablet
2 mg PO Q6HPRN PRN (Reason: diarrhea)
risperidone [Risperdal] 3 mg Tablet
2 mg PO Q12H
melatonin 3 mg Tablet
6 mg PO HSPRN PRN (Reason: sleep)
acetaminophen 650 mg Suppository
650 mg CO Q6HPRN PRN (Reason: fever)
losartan 50 mg Tablet
50 mg PO DAILY
acetaminophen [Tylenol] 325 mg Tablet
650 mg PO Q6HPRN PRN (Reason: mild pain)
citalopram [Celexa] 40 mg Tablet
40 mg PO DAILY
ondansetron HCl 8 mg Tablet
8 mg PO AC
lorazepam 0.5 mg Tablet
0.5 mg PO Q6HPRN PRN (Reason: anxiety)
hyoscyamine sulfate [Levsin] 0.125 mg Tablet
0.125 mg PO QIDPRN PRN (Reason: secretions)
tramadol 100 mg Tablet
100 mg PO BID
tamsulosin 0.4 mg capsule
0.4 mg PO DAILY
Discharge Date and Time
Print Language: [id number]
--- NOTE | 2024-12-08 17:30 | PTCARENOTE ---
pt had agonal breathing throughout shift, with grunting at times, gurgling, suction performed, IV Rubinol given along with Morphine IV for comfort,due to breathing pattern, eyes open with no reflex.
== END 2024-12-08 17:35 | disposition expired | DRG 951 ==
LOC: 2 NORTH 15:21
PROVIDERS: ADMITTING PHYSICIAN Hospitalist; ATTENDING PHYSICIAN Internal Medicine; CONSULT PHYSICIAN Internal Medicine Critical Care Medicine; EMERGENCY PHYSICIAN Emergency Medicine; FAMILY PHYSICIAN Internal Medicine
DX: Z51.5 Encounter for palliative care (principal); C18.9 Malignant neoplasm of colon, unspecified; C78.7 Secondary malignant neoplasm of liver and intrahepatic bile duct; C79.51 Secondary malignant neoplasm of bone; R62.7 Adult failure to thrive; D50.9 Iron deficiency anemia, unspecified; E11.9 Type 2 diabetes mellitus without complications; E78.00 Pure hypercholesterolemia, unspecified; I95.89 Other hypotension; F25.9 Schizoaffective disorder, unspecified; I10 Essential (primary) hypertension; E66.01 Morbid (severe) obesity due to excess calories; R26.2 Difficulty in walking, not elsewhere classified; F79 Unspecified intellectual disabilities; F32.A Depression, unspecified; F41.9 Anxiety disorder, unspecified; Z66 Do not resuscitate; Z90.49 Acquired absence of other specified parts of digestive tract; Z88.8 Allergy status to other drugs, medicaments and biological substances; Z80.0 Family history of malignant neoplasm of digestive organs
CPT/HCPCS: 93005; 96361; 96374; 99285